=== PATIENT | male | born 1965 | race Caucasian/White ===

== ENCOUNTER 2016-11-02 03:19 | Observation (INO) | payer OTHER ==
[2016-11-02] MEDS ORDERED: NITROGLYCERIN OINT 1 INCH/GM PACKET TOPICAL STA (03:24)
[2016-11-02] MEDS ORDERED: ASPIRIN 81 MG CHEW PO STA (03:24)
--- NOTE | 2016-11-02 03:27 | ED ---
General Adult HPI - General Stated complaint: Chest Pain Time Seen by Provider: 11/02/16 03:19 Source: RN notes reviewed - History of Present Illness Initial comments: This is a 50-year-old male with a past medical history significant for high blood pressure and smoking and patient states both of his parents had open- heart surgery. Patient states over the last month he's been occasionally getting some chest pain but over the last 3 days it has become much more frequent. Patient states the pain sometimes radiates down his left arm it usually worse with mild exertion and he does become very short of breath when the pain starts. Patient states the pain usually lasts about 5-10 minutes. Patient states it was a 7 out of 10 when he called EMS this evening however he is pain-free at this time. Patient denies any episodes of diaphoresis. Patient denies any fever chills or cough. Patient denies headache patient denies any numbness or weakness patient denies any lightheadedness dizziness or near syncopal episode. - Related Data Allergies Allergy/AdvReac Type Severity Reaction Status Date / Time ciprofloxacin [From Cipro] Allergy Unknown Verified 11/02/16 03:53 Review of Systems ROS Statement: Those systems with pertinent positive or pertinent negative responses have been documented in the HPI. ROS Other: All systems not noted in ROS Statement are negative. General Exam - General Exam Comments Initial Comments: GENERAL: Patient is well-developed and well-nourished. Patient is nontoxic and well- hydrated and is in mild distress. ENT: Neck is soft and supple. No significant lymphadenopathy is noted. Oropharynx is clear. Moist mucous membranes. EYES: The sclera were anicteric and conjunctiva were pink and moist. Extraocular movements were intact and pupils were equal round and reactive to light. Eyelids were unremarkable. PULMONARY: Unlabored respirations. Good breath sounds bilaterally. No audible rales rhonchi or wheezing was noted. CARDIOVASCULAR: There is a regular rate and rhythm without any murmurs gallops or rubs. ABDOMEN: Soft and nontender with normal bowel sounds. No palpable organomegaly was noted. There is no palpable pulsatile mass. SKIN: Skin is clear with no lesions or rashes and otherwise unremarkable. NEUROLOGIC: Patient is alert and oriented x3. Cranial nerves II through XII are grossly intact. Motor and sensory are also intact. Normal speech, volume and content. Symmetrical smile. MUSCULOSKELETAL: Normal extremities with adequate strength and full range of motion. LYMPHATICS: No significant lymphadenopathy is noted PSYCHIATRIC: Normal psychiatric evaluation. Course Vital Signs 11/02/16 03:38 Temperature 98.2 F Pulse Rate 81 Respiratory 18 Rate Blood Pressure 145/90 O2 Sat by Pulse 98 Oximetry Medical Decision Making - Medical Decision Making EKG shows a normal sinus rhythm at 73 bpm. It was 160 QRS is 114 QT interval 380 QTC is 427. Patient's EKG shows no ST segment elevation or depression or T- wave abdomen is noted. Chest x-ray shows no acute abnormality. Patient has been having intermittent progressive chest pain worse with exertion associated with shortness of breath and some left arm pain since with his past medical history of smoking high blood pressure along with his family history concerned me and I diagnosed with unstable angina and therefore heparinized and admitted to the floor I consult the cardiology I wrote admitting orders and admitted the patient to Dr. eG. I continued heparin and aspirin Nitropaste on the floor. - Lab Data Result diagrams: 11/02/16 03:29 11/02/16 03:29 Lab Results 11/02/16 11/02/16 11/02/16 Range/Units 03:29 03:29 03:29 WBC 10.2 (3.8-10.6) k/uL RBC 4.40 (4.30-5.90) m/uL Hgb 14.5 (13.0-17.5) gm/dL Hct 42.3 (39.0-53.0) % MCV 96.2 (80.0-100.0) fL MCH 33.0 (25.0-35.0) pg MCHC 34.3 (31.0-37.0) g/dL RDW 13.3 (11.5-15.5) % Plt Count 114 L (150-450) k/uL Neutrophils % 49 % Lymphocytes % 40 % Monocytes % 6 % Eosinophils % 2 % Basophils % 1 % Neutrophils # 5.1 (1.3-7.7) k/uL Lymphocytes # 4.1 (1.0-4.8) k/uL Monocytes # 0.6 (0-1.0) k/uL Eosinophils # 0.2 (0-0.7) k/uL Basophils # 0.1 (0-0.2) k/uL Sodium 144 (137-145) mmol/L Potassium 5.8 H (3.5-5.1) mmol/L Chloride 114 H (98-107) mmol/L Carbon Dioxide 23 (22-30) mmol/L Anion Gap 7 mmol/L BUN 20 (9-20) mg/dL Creatinine 0.84 (0.66-1.25) mg/dL Est GFR (MDRD) Af Amer >60 (>60 ml/min/1.73 sqM) Est GFR (MDRD) Non-Af >60 (>60 ml/min/1.73 sqM) Glucose 108 H (74-99) mg/dL Calcium 9.3 (8.4-10.2) mg/dL Magnesium 1.9 (1.6-2.3) mg/dL Total Bilirubin 1.2 (0.2-1.3) mg/dL AST 33 (17-59) U/L ALT 6 L (21-72) U/L Alkaline Phosphatase 73 (38-126) U/L Total Creatine Kinase 58 (55-170) U/L CK-MB (CK-2) <0.2 (0.0-2.4) ng/mL CK-MB (CK-2) Rel Index Troponin I 0.013 (0.000-0.034) ng/mL Total Protein 7.3 (6.3-8.2) g/dL Albumin 3.9 (3.5-5.0) g/dL Critical Care Time Critical Care Time: Yes Total Critical Care Time: 35 Disposition Clinical Impression: Unstable angina pectoris Disposition: ADMITTED IP TO THIS HOSP Referrals: Dominik Rios MD [Primary Care Provider] - 1-2 days Time of Disposition: 04:40
[2016-11-02 03:51] LABS: Basophils # (A) 0.1 k/uL (0-0.2); Basophils % (A) 1 %; CH 32.8; CHCM 34.3; Eosinophils # (A) 0.2 k/uL (0-0.7); Eosinophils % (A) 2 %; HCT 42.3 % (39.0-53.0); HDW 2.75; HGB 14.5 gm/dL (13.0-17.5); Luc # (Auto) 0.17; Luc % (Auto) 2; Lymphocytes # (A) 4.1 k/uL (1.0-4.8); Lymphocytes % (A) 40 %; MCHC 34.3 g/dL (31.0-37.0); MCV 96.2 fL (80.0-100.0); Mean Platelet Volume 7.9; Monocytes # (A) 0.6 k/uL (0-1.0); Monocytes % (A) 6 %; Neutrophils # (A) 5.1 k/uL (1.3-7.7); Neutrophils % (A) 49 %; RDW 13.3 % (11.5-15.5); WBC 10.2 k/uL (3.8-10.6); WBC (Perox) 10.12
[2016-11-02 04:00] LABS: Anion Gap 7 mmol/L; Calcium 9.3 mg/dL (8.4-10.2); Carbon Dioxide 23 mmol/L (22-30); Chloride 114 mmol/L (98-107); Non-African American GFR(MDRD) >60 (>60 ml/min/1.73 sqM); Sodium 144 mmol/L (137-145)
[2016-11-02 04:01] LABS: Potassium 5.8 mmol/L (3.5-5.1)
--- NOTE | 2016-11-02 04:01 | XR ---
EXAM: XR Chest, 2 Views CLINICAL HISTORY: Reason: Chest Pain TECHNIQUE: Frontal and lateral views of the chest. COMPARISON: No relevant prior studies available. FINDINGS: Lungs: Unremarkable. No consolidation. Pleural space: Unremarkable. No pneumothorax. Heart: Unremarkable. No cardiomegaly. Mediastinum: Unremarkable. Bones/joints: Unremarkable. IMPRESSION: Normal chest x-rays.
[2016-11-02 04:02] LABS: ALT 6 U/L (21-72); AST 33 U/L (17-59); Alkaline Phosphatase 73 U/L (38-126); Blood Urea Nitrogen 20 mg/dL (9-20); Glucose 108 mg/dL (74-99); Magnesium 1.9 mg/dL (1.6-2.3); Total Protein 7.3 g/dL (6.3-8.2)
[2016-11-02 04:03] LABS: Creatine Kinase 58 U/L (55-170); Total Bilirubin 1.2 mg/dL (0.2-1.3)
[2016-11-02 04:17] LABS: Creatine Kinase MB <0.2 ng/mL (0.0-2.4); Troponin I 0.013 ng/mL (0.000-0.034)
[2016-11-02] MEDS ORDERED: NITROGLYCERIN SL TABS 0.4 MG TAB SUBLINGUAL PRN (04:40)
[2016-11-02] MEDS ORDERED: HEPARIN SODIUM,PORCINE 5,000 UNIT/ML 1 ML VIAL IV ONE (04:40)
[2016-11-02] MEDS ORDERED: HEPARIN SODIUM,PORCINE/D5W PMX 25,000 UNIT in DEXTROSE/WATER 1 500ML.BAG IV SCH (04:45)
[2016-11-02 04:52] LABS: INR 1.1 (<1.1); Partial Thromboplastin Time 23.3 sec (22.0-30.0)
[2016-11-02 05:42] VITALS: BMI 27.3
[2016-11-02] MEDS: NITROGLYCERIN OINT 1 INCH/GM PACKET TOPICAL SCH ×2 (06:30→13:16)
[2016-11-02 11:08] LABS: Creatine Kinase 30 U/L (55-170)
[2016-11-02 11:21] LABS: Creatine Kinase MB 0.2 ng/mL (0.0-2.4); Troponin I <0.012 ng/mL (0.000-0.034)
[2016-11-02 15:56] VITALS: BP 141/72; PULSE 64; RESP 18; TEMP 98.2
[2016-11-02 16:18] LABS: Creatine Kinase 29 U/L (55-170)
[2016-11-02 16:32] LABS: Creatine Kinase MB 0.3 ng/mL (0.0-2.4); Troponin I <0.012 ng/mL (0.000-0.034)
[2016-11-02 18:10] LABS: Anion Gap 7 mmol/L; Blood Urea Nitrogen 18 mg/dL (9-20); Calcium 9.8 mg/dL (8.4-10.2); Carbon Dioxide 26 mmol/L (22-30); Chloride 111 mmol/L (98-107); Glucose 88 mg/dL (74-99); Non-African American GFR(MDRD) >60 (>60 ml/min/1.73 sqM); Potassium 4.5 mmol/L (3.5-5.1); Sodium 144 mmol/L (137-145)
--- NOTE | 2016-11-02 22:13 | HP ---
The patient is a 50-year-old admitted with chest pain. The patient's past medical history is significant for high blood pressure and smoking. Patient came in with on and off chest pain. Patient mostly has neck pain, and chronic low back pain and he believes that it is radiating to his chest. His pain is pressure-like sensation to sharp in nature, has been going on for 3 months on and off, appears to have both exertional and nonexertional components, nonpleuritic in nature, not associated with food. Lasts about 10 to 15 minutes. Patient does normally have shortness of breath. Shortness of breath happens whenever he takes stairs. Not always associated with chest pain. Patient denied any diaphoresis. Patient denied any nausea, vomiting. Patient denied any fever, chills, cough. Patient had a stress test about 3 years ago. I had extensive discussion with the patient. Patient had 3 sets of troponins that are negative. The patient's EKG did not show any significant acute ST-T wave changes. The patient wanted to go home and get a stress test done as an outpatient. Because of that reason, I will go ahead and discharge the patient, since we ruled out acute coronary artery syndromes, and Lexiscan stress test will be scheduled for Sunday. Patient mainly came in because he ran out of pain medications for his back pain. He normally takes Percocet, which will be continued. Other issue with him being elevated potassium, which is a hemolyzed sample, because of which we will repeat the potassium. If potassium continues to be higher, lisinopril need to be discontinued. If potassium comes down, patient can go with his antihypertensive medications. ALLERGIES: ALLERGIC TO CIPROFLOXIN. REVIEW OF SYSTEMS: CONSTITUTIONAL: No fever, no malaise, no fatigue. HEENT: No recent visual problems or hearing problems. Denied any sore throat. CARDIOVASCULAR: As described in HPI. PULMONARY: No shortness of breath, no cough, no hemoptysis. GASTROINTESTINAL: No diarrhea, no nausea, no vomiting, no abdominal pain. Normoactive bowel sounds. NEUROLOGICAL: No headaches, no weakness, no numbness. HEMATOLOGICAL: Denies any bleeding or petechiae. GENITOURINARY: Denies any burning micturition, frequency, or urgency. MUSCULOSKELETAL/RHEUMATOLOGICAL: Denies any joint pain, swelling, or any muscle pain. ENDOCRINE: Denies any polyuria or polydipsia. The rest of the 14 point review of systems is negative. PAST MEDICAL HISTORY: Significant for chronic low back pain component of COPD, hyperlipidemia, hypertension, osteoarthritis, hypothyroidism. Patient continues to smoke pack per day. Denied any alcohol abuse or any drug abuse. FAMILY HISTORY: Significant for coronary artery disease in both parents had CABG in the past. PHYSICAL EXAMINATION: VITAL SIGNS: Temperature 98.2, pulse of 64, respiratory rate of 18, blood pressure is 141/70, saturating at 92% on room air on. GENERAL: The patient is alert and oriented x3, not in any acute distress. Well developed, well nourished. HEENT: Pupils are round and equally reacting to light. EOMI. No scleral icterus. No conjunctival pallor. Normocephalic, atraumatic. No pharyngeal erythema. No thyromegaly. CARDIOVASCULAR: S1 and S2 present. No murmurs, rubs, or gallops. PULMONARY: Chest is clear to auscultation, no wheezing or crackles. ABDOMEN: Soft, nontender, nondistended, normoactive bowel sounds. No palpable organomegaly. MUSCULOSKELETAL: No joint swelling or deformity. EXTREMITIES: No cyanosis, clubbing, or pedal edema. NEUROLOGICAL: Gross neurological examination did not reveal any focal deficits. SKIN: No rashes. LABORATORY DATA: CBC, CMP abnormal for elevated potassium as mentioned above. Elevated chloride secondary to IV fluids. ASSESSMENT AND PLAN: 1. Chest pain mostly appears to be musculoskeletal and appears to be coming from neck degenerative disc disease. Patient also has sciatica kind of pain with positive straight leg raising test which I failed to mention earlier on both sides. Ruled out acute coronary artery syndrome. Outpatient stress test as mentioned above. Patient will follow with Dr. Dominik Rios. 2. Hypertension. Management as mentioned above. 3. Gastroesophageal reflux disease. 4. Chronic low back pain. 5. Component of chronic obstructive pulmonary disease. Patient is not in acute exacerbation. Further management as an outpatient by Dr. Rios. 6. The patient will follow with Dr. Rios in 3 to 7 days. 7. Activity as tolerated. 8. Outpatient stress test ( ) provided. 9. Cardiac diet.
[2016-11-03] MEDS ORDERED: ASPIRIN 325 MG TAB PO SCH (09:00)
== END 2016-11-02 17:25 | disposition home or self-care (01) ==
LOC: EC 03:19 → 3OBS 04:40
PROVIDERS: ADMIT Hospitalist; ATTEND Hospitalist
DX: R07.89 Other chest pain (principal); M50.30 Other cervical disc degeneration, unspecified cervical region; I10 Essential (primary) hypertension; M79.602 Pain in left arm; M54.32 Sciatica, left side; M54.31 Sciatica, right side; G89.29 Other chronic pain; J44.9 Chronic obstructive pulmonary disease, unspecified; E78.5 Hyperlipidemia, unspecified; E03.9 Hypothyroidism, unspecified; M19.90 Unspecified osteoarthritis, unspecified site; K21.9 Gastro-esophageal reflux disease without esophagitis; F17.200 Nicotine dependence, unspecified, uncomplicated; Z82.49 Family history of ischemic heart disease and other diseases of the circulatory system; Z88.3 Allergy status to other anti-infective agents
CPT/HCPCS: 96365; 96366; 96376; 99291; 99292; 36415; 93005; 80053; 80048; 82550; 82553; 83735; 84484; 85025; 85610; 85730; 71020; G0378; J1644 ×2

== ENCOUNTER 2016-11-10 16:19 | Emergency (ER) | payer OTHER ==
[2016-11-10 16:31] VITALS: BP 122/78; PULSE 70; RESP 16; TEMP 97.4
--- NOTE | 2016-11-10 17:03 | ED ---
Back Pain HPI - General Chief Complaint: Back Pain/Injury Stated Complaint: Back Pain Time Seen by Provider: 11/10/16 16:51 Source: patient, RN notes reviewed Mode of arrival: ambulatory Limitations: no limitations - History of Present Illness Initial Comments: 50-year-old male presents for chronic back pain, medication refill. Patient was seen Dr. Flanagan but states that he received a letter of discharge. Patient was in the hospital and did receive prescription from Dr. david ibrahim. Patient states that he has chronic pain has been on multiple narcotic pain medicine for years. Patient states that he just ran out today as he had a prescription refill 8 days ago. Of 30. Patient denies any bowel bladder incontinence no retention and denies any trauma. - Related Data Home Medications Medication Instructions Recorded Confirmed ALPRAZolam [Xanax] 1 mg PO Q6HR PRN 11/02/16 11/02/16 Famotidine [Pepcid] 20 mg PO DAILY 11/02/16 11/02/16 Gabapentin [Neurontin] 600 mg PO TID 11/02/16 11/02/16 oxyCODONE-APAP 10-325MG [Percocet 1 tab PO Q6HR PRN 11/02/16 11/02/16 10-325 mg] Previous Rx's Medication Instructions Recorded HYDROcodone/APAP 10-325MG [[place] 1 tab PO Q6H PRN #30 tab 11/10/16 10-325] Allergies Allergy/AdvReac Type Severity Reaction Status Date / Time ciprofloxacin [From Cipro] Allergy Unknown Verified 11/02/16 07:52 Iodinated Contrast Media - AdvReac "PASSED Verified 11/02/16 08:13 Oral and OUT FOR 3 DAYS" Review of Systems ROS Statement: Those systems with pertinent positive or pertinent negative responses have been documented in the HPI. ROS Other: All systems not noted in ROS Statement are negative. Past Medical History Past Medical History: COPD, GERD/Reflux, Hyperlipidemia, Hypertension, Osteoarthritis (OA), Pneumonia, Thyroid Disorder Additional Past Medical History / Comment(s): DDD back, spinal cord impingment, herniated disc spine with spurs, neuropathy, rediculopathy, scoliosis, carpel tunner History of Any Multi-Drug Resistant Organisms: None Reported Past Surgical History: No Surgical Hx Reported Past Anesthesia/Blood Transfusion Reactions: No Reported Reaction, Motion Sickness Past Psychological History: Anxiety Smoking Status: Current every day smoker Past Alcohol Use History: Daily Past Drug Use History: None Reported - Past Family History Father Family Medical History: Coronary Artery Disease (CAD) Additional Family Medical History / Comment(s): CABG Mother Family Medical History: Coronary Artery Disease (CAD) Additional Family Medical History / Comment(s): CABG General Exam Limitations: no limitations General appearance: alert, in no apparent distress Head exam: Present: atraumatic, normocephalic, normal inspection Respiratory exam: Present: normal lung sounds bilaterally. Absent: respiratory distress, wheezes, rales, rhonchi, stridor Cardiovascular Exam: Present: regular rate, normal rhythm, normal heart sounds. Absent: systolic murmur, diastolic murmur, rubs, gallop, clicks GI/Abdominal exam: Present: soft, normal bowel sounds. Absent: distended, tenderness, guarding, rebound, rigid Back exam: Present: normal inspection, full ROM, tenderness (lumbar) Course Vital Signs 11/10/16 16:28 Temperature 97.4 F L Pulse Rate 70 Respiratory 16 Rate Blood Pressure 122/78 O2 Sat by Pulse 95 Oximetry Medical Decision Making - Medical Decision Making 50-year-old male presented for medication refill. I did inform that he needs to figure out a plan with his primary care physician for further pain meds. Patient will be given [place] only this time to get to the weekend to see Dr. Rios. He does agree to this plan. Disposition Clinical Impression: Chronic back pain, Medication refill Disposition: HOME SELF-CARE Condition: Stable Instructions: Chronic Back Pain (ED) Additional Instructions: Please return to the Emergency Department if symptoms worsen or any other concerns. Prescriptions: HYDROcodone/APAP 10-325MG [[place] 10-325] 1 tab PO Q6H PRN #30 tab PRN Reason: pain Referrals: Dominik Rios MD [Primary Care Provider] - 1-2 days Time of Disposition: 17:02
== END 2016-11-10 17:15 | disposition home or self-care (01) ==
LOC: EC 16:19
DX: G89.29 Other chronic pain (principal); M54.9 Dorsalgia, unspecified; Z76.0 Encounter for issue of repeat prescription; K21.9 Gastro-esophageal reflux disease without esophagitis; F17.200 Nicotine dependence, unspecified, uncomplicated; Z79.899 Other long term (current) drug therapy; Z88.1 Allergy status to other antibiotic agents; Z91.041 Radiographic dye allergy status
CPT/HCPCS: 99282

== ENCOUNTER 2016-12-04 09:35 | Emergency (ER) | payer OTHER ==
[2016-12-04] MEDS ORDERED: ORPHENADRINE 30 MG/ML 2 ML VIAL IM STA (10:17)
[2016-12-04] MEDS ORDERED: MORPHINE SULFATE 4 MG/ML SYRINGE IM STA (10:17)
[2016-12-04] MEDS ORDERED: predniSONE 20 MG TAB PO STA (10:17)
--- NOTE | 2016-12-04 10:26 | ED ---
Back Pain HPI - General Chief Complaint: Back Pain/Injury Stated Complaint: leg and neck pain Time Seen by Provider: 12/04/16 10:06 Source: patient Limitations: no limitations - History of Present Illness Initial Comments: This patient is a 50-year-old man who presents with complaint that his usual back pain is flaring up. The patient states that he has been having neck pain since he was in his 30s and he had a [employer] accident. He states that since that time he has had the same symptoms he has now intermittently. He also has had the numbness and tingling to the legs, being worse on the left than right. He is here because the pain is a bit worse. He has not had any change in his function lately. He has not had any bowel or urinary issues. He has not had loss of strength. Patient states that he is not currently see a back specialist. MD Complaint: back pain -: year(s) Similar Symptoms Previously: Yes Place: home Radiation: left leg, right leg Severity: severe Quality: aching Consistency: constant Improves With: none Worsens With: none - Related Data Home Medications Medication Instructions Recorded Confirmed ALPRAZolam [Xanax] 1 mg PO Q6HR PRN 11/02/16 12/04/16 Famotidine [Pepcid] 20 mg PO DAILY 11/02/16 12/04/16 Gabapentin [Neurontin] 600 mg PO TID 11/02/16 12/04/16 oxyCODONE-APAP 10-325MG [Percocet 1 tab PO Q6HR PRN 11/02/16 12/04/16 10-325 mg] Amoxicillin 500 mg PO DIRECTED 12/04/16 12/04/16 Aspirin 325 mg PO ONCE PRN 12/04/16 12/04/16 Losartan/Hydrochlorothiazide 1 tab PO DAILY 12/04/16 12/04/16 [Hyzaar 100-12.5 Tablet] Allergies Allergy/AdvReac Type Severity Reaction Status Date / Time ciprofloxacin [From Cipro] Allergy Unknown Verified 12/04/16 10:08 Iodinated Contrast Media - AdvReac "PASSED Verified 12/04/16 10:08 Oral and OUT FOR 3 DAYS" Review of Systems ROS Statement: Those systems with pertinent positive or pertinent negative responses have been documented in the HPI. ROS Other: All systems not noted in ROS Statement are negative. Constitutional: Denies: fever, chills, weakness Gastrointestinal: Denies: abdominal pain, diarrhea, constipation Genitourinary: Denies: dysuria, frequency, hematuria, discharge, testicular pain Musculoskeletal: Reports: as per HPI, back pain Neurological: Reports: numbness, paresthesias. Denies: headache, weakness, abnormal gait Past Medical History Past Medical History: COPD, GERD/Reflux, Hyperlipidemia, Hypertension, Osteoarthritis (OA), Pneumonia, Thyroid Disorder Additional Past Medical History / Comment(s): DDD back, spinal cord impingment, herniated disc spine with spurs, neuropathy, rediculopathy, scoliosis, carpel tunner History of Any Multi-Drug Resistant Organisms: None Reported Past Surgical History: No Surgical Hx Reported Past Anesthesia/Blood Transfusion Reactions: No Reported Reaction, Motion Sickness Past Psychological History: Anxiety Smoking Status: Current every day smoker Past Alcohol Use History: Daily Past Drug Use History: None Reported - Past Family History Father Family Medical History: Coronary Artery Disease (CAD) Additional Family Medical History / Comment(s): CABG Mother Family Medical History: Coronary Artery Disease (CAD) Additional Family Medical History / Comment(s): CABG General Exam Limitations: no limitations General appearance: alert, in no apparent distress Head exam: Present: atraumatic, normocephalic Eye exam: Present: normal appearance. Absent: scleral icterus, conjunctival injection Respiratory exam: Present: normal lung sounds bilaterally. Absent: respiratory distress, wheezes, rales, rhonchi, stridor Cardiovascular Exam: Present: regular rate, normal rhythm, normal heart sounds. Absent: systolic murmur, diastolic murmur, rubs, gallop GI/Abdominal exam: Present: soft. Absent: distended, tenderness, guarding, rebound, mass Extremities exam: Present: normal inspection, normal capillary refill. Absent: pedal edema, calf tenderness Back exam: Absent: vertebral tenderness Neurological exam: Present: alert, reflexes normal. Absent: motor sensory deficit Skin exam: Present: warm, dry, intact, normal color. Absent: rash Course Vital Signs 12/04/16 09:36 Temperature 98.3 F Pulse Rate 76 Respiratory 20 Rate Blood Pressure 142/82 O2 Sat by Pulse 98 Oximetry Disposition Clinical Impression: Chronic back pain Disposition: HOME SELF-CARE Condition: Fair Instructions: Chronic Back Pain (ED) Referrals: Dominik Rios MD [Primary Care Provider] - 1-2 days Manoj Baker MD [STAFF PHYSICIAN] - 1-2 days Gail Medina DO [Doctor of Osteopathic Medicine] - 1-2 days
[2016-12-04 10:35] VITALS: RESP 16
[2016-12-04 10:51] VITALS: BP 146/84; PULSE 60; TEMP 97.1
== END 2016-12-04 10:59 | disposition home or self-care (01) ==
LOC: EC 09:35
DX: M54.9 Dorsalgia, unspecified (principal); G89.29 Other chronic pain; M54.2 Cervicalgia; I10 Essential (primary) hypertension; F17.200 Nicotine dependence, unspecified, uncomplicated; Z88.1 Allergy status to other antibiotic agents; Z91.041 Radiographic dye allergy status; Z79.899 Other long term (current) drug therapy
CPT/HCPCS: 99283; 96372 ×2; J2270; J2360

== ENCOUNTER 2017-01-11 18:47 | Emergency (ER) | payer OTHER ==
[2017-01-11 18:55] VITALS: RESP 18
[2017-01-11] MEDS ORDERED: HYDROmorphone 1 MG/ML 1 ML SYRINGE IM STA (19:50)
[2017-01-11] MEDS ORDERED: KETOROLAC 30 MG/ML 1 ML VIAL IVP STA (19:50)
[2017-01-11] MEDS ORDERED: methylPREDNISolone SOD SUCCI 125 MG/2 ML VIAL IV STA (19:50)
[2017-01-11 20:06] LABS: Appearance,Urine Clear (Clear); Basophils # (A) 0.1 k/uL (0-0.2); Basophils % (A) 1 %; Bilirubin,Urine Negative (Negative); CH 33.3; CHCM 35.2; Eosinophils # (A) 0.2 k/uL (0-0.7); Eosinophils % (A) 2 %; Glucose,Urine (UA) Negative (Negative); HCT 42.9 % (39.0-53.0); HDW 2.65; HGB 14.7 gm/dL (13.0-17.5); Ketones,Urine Negative (Negative); Leukocyte Esterase,Urine Negative (Negative); Luc # (Auto) 0.13; Luc % (Auto) 2; Lymphocytes # (A) 2.8 k/uL (1.0-4.8); Lymphocytes % (A) 34 %; MCH 32.7 pg (25.0-35.0); MCHC 34.3 g/dL (31.0-37.0); MCV 95.3 fL (80.0-100.0); Mean Platelet Volume 8.5; Monocytes # (A) 0.6 k/uL (0-1.0); Monocytes % (A) 7 %; Neutrophils # (A) 4.5 k/uL (1.3-7.7); Neutrophils % (A) 54 %; Nitrite,Urine Negative (Negative); Protein,Urine Trace (Negative); Specific Gravity,Urine 1.019 (1.001-1.035); UA Billing (MACRO vs. MICRO) CHEM; Urobilinogen,Urine <2.0 mg/dL (<2.0); WBC 8.3 k/uL (3.8-10.6); WBC (Perox) 8.17
[2017-01-11 20:15] LABS: Anion Gap 9 mmol/L; Blood Urea Nitrogen 12 mg/dL (9-20); Calcium 9.6 mg/dL (8.4-10.2); Carbon Dioxide 28 mmol/L (22-30); Chloride 107 mmol/L (98-107); Glucose 94 mg/dL (74-99); Non-African American GFR(MDRD) >60 (>60 ml/min/1.73 sqM); Potassium 3.7 mmol/L (3.5-5.1); Sodium 144 mmol/L (137-145)
--- NOTE | 2017-01-11 20:25 | ED ---
Back Pain HPI - General Chief Complaint: Back Pain/Injury Stated Complaint: severe back/kidney Source: patient Limitations: no limitations - History of Present Illness Initial Comments: 51-year-old male with past medical history of chronic back pain from previous injuries present for evaluation and continuation of his chronic pain. He states that the only difference from his baseline pain is that it is gone out a little bit wider on both sides. Otherwise he states that his pain is just continued and he is having difficult to dealing with. He has seen multiple neurologists and orthopedic surgeons and has had no relief of his symptoms. He denies any lower extremity weakness, bowel or bladder discomfort, or saddle anesthesia. It is no spinous process tenderness. - Related Data Home Medications Medication Instructions Recorded Confirmed ALPRAZolam [Xanax] 1 mg PO Q6HR PRN 11/02/16 01/11/17 Famotidine [Pepcid] 20 mg PO DAILY 11/02/16 01/11/17 oxyCODONE-APAP 10-325MG [Percocet 1 tab PO Q6HR PRN 11/02/16 01/11/17 10-325 mg] Losartan/Hydrochlorothiazide 1 tab PO DAILY 12/04/16 01/11/17 [Hyzaar 100-12.5 Tablet] Butalb/APAP/Caff 50-325-40Mg 1 tab PO Q6H PRN 01/11/17 01/11/17 [Fioricet 50-325-40] Allergies Allergy/AdvReac Type Severity Reaction Status Date / Time ciprofloxacin [From Cipro] Allergy Unknown Verified 01/11/17 19:06 Iodinated Contrast- Oral and AdvReac "PASSED Verified 01/11/17 19:06 IV Dye OUT FOR 3 [Iodinated Contrast Media - DAYS" Oral and] Review of Systems ROS Statement: Those systems with pertinent positive or pertinent negative responses have been documented in the HPI. ROS Other: All systems not noted in ROS Statement are negative. Constitutional: Denies: fever, chills Eyes: Denies: eye pain, eye discharge ENT: Denies: ear pain, throat pain Respiratory: Denies: cough, dyspnea Cardiovascular: Denies: chest pain, palpitations Endocrine: Denies: fatigue, polydipsia, polyuria Gastrointestinal: Denies: abdominal pain, nausea, vomiting Genitourinary: Denies: urgency, dysuria Musculoskeletal: Reports: back pain. Denies: arthralgia, myalgia Skin: Denies: rash, lesions Neurological: Reports: other (radiation of pain down legs L>R). Denies: headache, weakness Psychiatric: Denies: anxiety, depression Hematological/Lymphatic: Denies: easy bleeding, easy bruising Past Medical History Past Medical History: COPD, GERD/Reflux, Hyperlipidemia, Hypertension, Osteoarthritis (OA), Pneumonia, Thyroid Disorder Additional Past Medical History / Comment(s): DDD back, spinal cord impingment, herniated disc spine with spurs, neuropathy, rediculopathy, scoliosis, carpel tunner History of Any Multi-Drug Resistant Organisms: None Reported Past Surgical History: No Surgical Hx Reported Past Anesthesia/Blood Transfusion Reactions: No Reported Reaction, Motion Sickness Past Psychological History: Anxiety Smoking Status: Current every day smoker Past Alcohol Use History: Daily Past Drug Use History: None Reported - Past Family History Father Family Medical History: Coronary Artery Disease (CAD) Additional Family Medical History / Comment(s): CABG Mother Family Medical History: Coronary Artery Disease (CAD) Additional Family Medical History / Comment(s): CABG General Exam Limitations: no limitations General appearance: alert, in no apparent distress Head exam: Present: atraumatic, normocephalic, normal inspection Eye exam: Present: normal appearance, PERRL, EOMI. Absent: scleral icterus, conjunctival injection, periorbital swelling ENT exam: Present: normal exam, mucous membranes moist Neck exam: Present: normal inspection. Absent: tenderness, meningismus, lymphadenopathy Respiratory exam: Present: normal lung sounds bilaterally. Absent: respiratory distress, wheezes, rales, rhonchi, stridor Cardiovascular Exam: Present: regular rate, normal rhythm, normal heart sounds. Absent: systolic murmur, diastolic murmur, rubs, gallop, clicks GI/Abdominal exam: Present: soft, normal bowel sounds. Absent: distended, tenderness, guarding, rebound, rigid Rectal exam: Present: deferred Extremities exam: Present: normal inspection, full ROM, normal capillary refill. Absent: tenderness, pedal edema, joint swelling, calf tenderness Back exam: Present: full ROM, tenderness, paraspinal tenderness. Absent: CVA tenderness (R), CVA tenderness (L), muscle spasm, vertebral tenderness Neurological exam: Present: alert, oriented X3, CN II-XII intact Psychiatric exam: Present: normal affect, normal mood Skin exam: Present: warm, dry, intact, normal color. Absent: rash Course Vital Signs 01/11/17 01/11/17 18:53 20:32 Temperature 97.8 F 98.2 F Pulse Rate 73 85 Respiratory 18 18 Rate Blood Pressure 129/62 161/80 O2 Sat by Pulse 99 98 Oximetry Medical Decision Making - Medical Decision Making 51-year-old male presented for evaluation of low back pain with radiation down bilateral legs. He states that he has a long-standing history of chronic back pain however it is only mildly changed recently with the pain going laterally on both sides. On physical examination he does have tenderness bilaterally and there is positive straight leg test on the both sides. Given that this pain is at his baseline and has not really changed as well as having normal labs at this time, he will be treated for his pain and given instructions to follow up with his PCP and to look into establishing himself with a pain specialist. He was informed that he should return to this facility if his pain should worsen or persist but that he should not continue to come to the ED for chronic management of his pain. He knowledge and understanding of this information and agreed with this plan of care. - Lab Data Result diagrams: 01/11/17 19:54 01/11/17 19:54 Lab Results 01/11/17 01/11/17 01/11/17 Range/Units 19:54 19:54 19:54 WBC 8.3 (3.8-10.6) k/uL RBC 4.50 (4.30-5.90) m/uL Hgb 14.7 (13.0-17.5) gm/dL Hct 42.9 (39.0-53.0) % MCV 95.3 (80.0-100.0) fL MCH 32.7 (25.0-35.0) pg MCHC 34.3 (31.0-37.0) g/dL RDW 14.0 (11.5-15.5) % Plt Count 261 (150-450) k/uL Neutrophils % 54 % Lymphocytes % 34 % Monocytes % 7 % Eosinophils % 2 % Basophils % 1 % Neutrophils # 4.5 (1.3-7.7) k/uL Lymphocytes # 2.8 (1.0-4.8) k/uL Monocytes # 0.6 (0-1.0) k/uL Eosinophils # 0.2 (0-0.7) k/uL Basophils # 0.1 (0-0.2) k/uL Sodium 144 (137-145) mmol/L Potassium 3.7 (3.5-5.1) mmol/L Chloride 107 (98-107) mmol/L Carbon Dioxide 28 (22-30) mmol/L Anion Gap 9 mmol/L BUN 12 (9-20) mg/dL Creatinine 0.90 (0.66-1.25) mg/dL Est GFR (MDRD) Af Amer >60 (>60 ml/min/1.73 sqM) Est GFR (MDRD) Non-Af >60 (>60 ml/min/1.73 sqM) Glucose 94 (74-99) mg/dL Calcium 9.6 (8.4-10.2) mg/dL Urine Color Yellow Urine Appearance Clear (Clear) Urine pH 8.0 (5.0-8.0) Ur Specific [place] 1.019 (1.001-1.035) Urine Protein Trace H (Negative) Urine Glucose (UA) Negative (Negative) Urine Ketones Negative (Negative) Urine Blood Negative (Negative) Urine Nitrite Negative (Negative) Urine Bilirubin Negative (Negative) Urine Urobilinogen <2.0 (<2.0) mg/dL Ur Leukocyte Esterase Negative (Negative) Disposition Clinical Impression: Back pain Disposition: HOME SELF-CARE Condition: Stable Instructions: Acute Low Back Pain (ED), Chronic Back Pain (ED) Referrals: Dominik Rios MD [Primary Care Provider] - 1-2 days Time of Disposition: 20:25
[2017-01-11 20:33] VITALS: BP 161/80; PULSE 85; TEMP 98.2
== END 2017-01-11 20:36 | disposition home or self-care (01) ==
LOC: EC 18:47
DX: M54.9 Dorsalgia, unspecified (principal); K21.9 Gastro-esophageal reflux disease without esophagitis; I10 Essential (primary) hypertension; F17.200 Nicotine dependence, unspecified, uncomplicated; Z79.899 Other long term (current) drug therapy; Z88.1 Allergy status to other antibiotic agents; Z91.041 Radiographic dye allergy status
CPT/HCPCS: 36415; 80048; 85025; 81003; 99283; 96374; 96375; J2930; J1885

== ENCOUNTER 2017-01-17 19:02 | Observation (INO) | payer OTHER ==
[2017-01-17] MEDS ORDERED: SODIUM CHLORIDE 0.9% 1,000 ML IV STA (19:12)
--- NOTE | 2017-01-17 19:26 | ED ---
Seizure HPI - General Chief Complaint: Seizure Stated Complaint: Seizure-Head Injury Time Seen by Provider: 01/17/17 19:02 Source: patient, RN notes reviewed Mode of arrival: EMS Limitations: no limitations - History of Present Illness Initial Comments: This is a 51-year-old male with no prior history of seizure who apparently was on the second or third step of a porch 20 developed a generalized tonic-clonic seizure and fell onto the right side of his face. The seizure lasted about a minute per witnesses he did have an unresponsive. Rule out 5 minutes but then about a 30 minute episode of combative behavior until he became awake and alert. He states he had no premonition he was have a seizure he's never had one before denies any drugs or alcohol denies any recent illnesses he also denies any neck or back pain or loss of function to his upper or lower extremities. MD Complaint: seizure, other - Related Data Home Medications Medication Instructions Recorded Confirmed ALPRAZolam [Xanax] 1 mg PO QID PRN 11/02/16 01/17/17 oxyCODONE-APAP 10-325MG [Percocet 1 tab PO TID PRN 11/02/16 01/17/17 10-325 mg] Losartan/Hydrochlorothiazide 1 tab PO DAILY 12/04/16 01/17/17 [Hyzaar 100-12.5 Tablet] Aspirin 162.5 mg PO DAILY PRN 01/17/17 01/17/17 Gabapentin [Neurontin] 600 mg PO TID 01/17/17 01/17/17 Allergies Allergy/AdvReac Type Severity Reaction Status Date / Time ciprofloxacin [From Cipro] Allergy Unknown Verified 01/17/17 19:41 Iodinated Contrast- Oral and AdvReac "PASSED Verified 01/17/17 19:41 IV Dye OUT FOR 3 [Iodinated Contrast Media - DAYS" Oral and] Review of Systems ROS Statement: Those systems with pertinent positive or pertinent negative responses have been documented in the HPI. ROS Other: All systems not noted in ROS Statement are negative. Past Medical History Past Medical History: COPD, GERD/Reflux, Hyperlipidemia, Hypertension, Osteoarthritis (OA), Pneumonia, Thyroid Disorder Additional Past Medical History / Comment(s): DDD back, spinal cord impingment, herniated disc spine with spurs, neuropathy, rediculopathy, scoliosis, carpel tunner History of Any Multi-Drug Resistant Organisms: None Reported Past Surgical History: No Surgical Hx Reported Past Anesthesia/Blood Transfusion Reactions: No Reported Reaction, Motion Sickness Past Psychological History: Anxiety Smoking Status: Current every day smoker Past Alcohol Use History: Daily Past Drug Use History: None Reported - Past Family History Father Family Medical History: Coronary Artery Disease (CAD) Additional Family Medical History / Comment(s): CABG Mother Family Medical History: Coronary Artery Disease (CAD) Additional Family Medical History / Comment(s): CABG General Exam - General Exam Comments Initial Comments: This is a well-developed well-nourished awake alert oriented 3 male he does demonstrate a [place] Coma Scale of 15 at this time Limitations: no limitations General appearance: alert, in no apparent distress Head exam: Present: other (No tenderness palpation of the scalp no step-off. There are multiple abrasions seen to the face right forehead right lateral orbit and inferior orbit right side of the mouth and chin.) Eye exam: Present: normal appearance, PERRL, EOMI. Absent: scleral icterus, conjunctival injection, periorbital swelling ENT exam: Present: mucous membranes moist, other (Dried blood noted in the mouth no evidence of any fractured teeth or avulsed teeth at this time) Neck exam: Present: normal inspection. Absent: tenderness, meningismus, lymphadenopathy Respiratory exam: Present: normal lung sounds bilaterally. Absent: respiratory distress, wheezes, rales, rhonchi, stridor Cardiovascular Exam: Present: normal rhythm, tachycardia, normal heart sounds. Absent: systolic murmur, diastolic murmur, rubs, gallop, clicks GI/Abdominal exam: Present: soft, normal bowel sounds. Absent: distended, tenderness, guarding, rebound, rigid Extremities exam: Present: normal inspection, full ROM, normal capillary refill. Absent: tenderness, pedal edema, joint swelling, calf tenderness Back exam: Present: normal inspection Neurological exam: Present: alert, oriented X3, CN II-XII intact Psychiatric exam: Present: normal affect, normal mood Skin exam: Present: warm, dry, intact, normal color. Absent: rash Course Vital Signs 01/17/17 01/17/17 19:09 20:01 Temperature 99.1 F Pulse Rate 103 H 84 Respiratory 18 16 Rate Blood Pressure 156/74 145/64 O2 Sat by Pulse 95 98 Oximetry Medical Decision Making - Medical Decision Making I did reevaluate the patient on several occasions he remains awake alert oriented history of a [place] Coma Scale of 15. Patient will require admission for evaluation new-onset seizure. I did discuss the case with Dr. Anne patient will be admitted to the medicine service I did discuss this case with Dr. Rios. - Lab Data Result diagrams: 01/17/17 19:30 01/17/17 19:30 Lab Results 01/17/17 01/17/17 01/17/17 Range/Units 19:30 19:30 19:39 WBC 16.4 H (3.8-10.6) k/uL RBC 5.09 (4.30-5.90) m/uL Hgb 16.6 (13.0-17.5) gm/dL Hct 48.4 (39.0-53.0) % MCV 95.1 (80.0-100.0) fL MCH 32.6 (25.0-35.0) pg MCHC 34.2 (31.0-37.0) g/dL RDW 14.0 (11.5-15.5) % Plt Count 358 (150-450) k/uL Neutrophils % 87 % Lymphocytes % 5 % Monocytes % 6 % Eosinophils % 1 % Basophils % 0 % Neutrophils # 14.4 H (1.3-7.7) k/uL Lymphocytes # 0.9 L (1.0-4.8) k/uL Monocytes # 1.0 (0-1.0) k/uL Eosinophils # 0.1 (0-0.7) k/uL Basophils # 0.1 (0-0.2) k/uL Sodium 137 (137-145) mmol/L Potassium 3.8 (3.5-5.1) mmol/L Chloride 101 (98-107) mmol/L Carbon Dioxide 23 (22-30) mmol/L Anion Gap 13 mmol/L BUN 6 L (9-20) mg/dL Creatinine 1.00 (0.66-1.25) mg/dL Est GFR (MDRD) Af Amer >60 (>60 ml/min/1.73 sqM) Est GFR (MDRD) Non-Af >60 (>60 ml/min/1.73 sqM) Glucose 120 H (74-99) mg/dL Calcium 10.3 H (8.4-10.2) mg/dL Magnesium 2.3 (1.6-2.3) mg/dL Total Bilirubin 0.5 (0.2-1.3) mg/dL AST 19 (17-59) U/L ALT 27 (21-72) U/L Alkaline Phosphatase 72 (38-126) U/L Total Creatine Kinase 140 (55-170) U/L CK-MB (CK-2) 1.4 (0.0-2.4) ng/mL CK-MB (CK-2) Rel Index 1.0 Troponin I <0.012 (0.000-0.034) ng/mL Total Protein 8.8 H (6.3-8.2) g/dL Albumin 4.9 (3.5-5.0) g/dL TSH 13.800 H (0.465-4.680) mIU/L Free T4 0.70 L (0.78-2.19) ng/dL Urine Color Urine Appearance (Clear) Urine pH (5.0-8.0) Ur Specific [place] (1.001-1.035) Urine Protein (Negative) Urine Glucose (UA) (Negative) Urine Ketones (Negative) Urine Blood (Negative) Urine Nitrite (Negative) Urine Bilirubin (Negative) Urine Urobilinogen (<2.0) mg/dL Ur Leukocyte Esterase (Negative) Urine RBC (0-5) /hpf Urine WBC (0-5) /hpf Amorphous Sediment (None) /hpf Hyaline Casts (0-2) /lpf Urine Mucus (None) /hpf Salicylates <1.0 mg/dL Urine Opiates Screen (NotDetected) Ur Oxycodone Screen (NotDetected) Urine Methadone Screen (NotDetected) Ur Propoxyphene Screen (NotDetected) Acetaminophen <10.0 ug/mL Ur Barbiturates Screen (NotDetected) U Tricyclic Antidepress (NotDetected) Ur Phencyclidine Scrn (NotDetected) Ur Amphetamines Screen (NotDetected) U Methamphetamines Scrn (NotDetected) U Benzodiazepines Scrn (NotDetected) Urine Cocaine Screen (NotDetected) U Marijuana (THC) Screen (NotDetected) Serum Alcohol <10 mg/dL 08/09/17 08/09/17 Range/Units 20:00 20:00 WBC (3.8-10.6) k/uL RBC (4.30-5.90) m/uL Hgb (13.0-17.5) gm/dL Hct (39.0-53.0) % MCV (80.0-100.0) fL MCH (25.0-35.0) pg MCHC (31.0-37.0) g/dL RDW (11.5-15.5) % Plt Count (150-450) k/uL Neutrophils % % Lymphocytes % % Monocytes % % Eosinophils % % Basophils % % Neutrophils # (1.3-7.7) k/uL Lymphocytes # (1.0-4.8) k/uL Monocytes # (0-1.0) k/uL Eosinophils # (0-0.7) k/uL Basophils # (0-0.2) k/uL Sodium (137-145) mmol/L Potassium (3.5-5.1) mmol/L Chloride (98-107) mmol/L Carbon Dioxide (22-30) mmol/L Anion Gap mmol/L BUN (9-20) mg/dL Creatinine (0.66-1.25) mg/dL Est GFR (MDRD) Af Amer (>60 ml/min/1.73 sqM) Est GFR (MDRD) Non-Af (>60 ml/min/1.73 sqM) Glucose (74-99) mg/dL Calcium (8.4-10.2) mg/dL Magnesium (1.6-2.3) mg/dL Total Bilirubin (0.2-1.3) mg/dL AST (17-59) U/L ALT (21-72) U/L Alkaline Phosphatase (38-126) U/L Total Creatine Kinase (55-170) U/L CK-MB (CK-2) (0.0-2.4) ng/mL CK-MB (CK-2) Rel Index Troponin I (0.000-0.034) ng/mL Total Protein (6.3-8.2) g/dL Albumin (3.5-5.0) g/dL TSH (0.465-4.680) mIU/L Free T4 (0.78-2.19) ng/dL Urine Color Yellow Urine Appearance Clear (Clear) Urine pH 6.0 (5.0-8.0) Ur Specific [place] 1.012 (1.001-1.035) Urine Protein 1+ H (Negative) Urine Glucose (UA) Negative (Negative) Urine Ketones 1+ H (Negative) Urine Blood Small H (Negative) Urine Nitrite Negative (Negative) Urine Bilirubin Negative (Negative) Urine Urobilinogen <2.0 (<2.0) mg/dL Ur Leukocyte Esterase Negative (Negative) Urine RBC 14 H (0-5) /hpf Urine WBC 2 (0-5) /hpf Amorphous Sediment Rare H (None) /hpf Hyaline Casts 13 H (0-2) /lpf Urine Mucus Many H (None) /hpf Salicylates mg/dL Urine Opiates Screen Not Detected (NotDetected) Ur Oxycodone Screen Detected H (NotDetected) Urine Methadone Screen Not Detected (NotDetected) Ur Propoxyphene Screen Not Detected (NotDetected) Acetaminophen ug/mL Ur Barbiturates Screen Detected H (NotDetected) U Tricyclic Antidepress Not Detected (NotDetected) Ur Phencyclidine Scrn Not Detected (NotDetected) Ur Amphetamines Screen Not Detected (NotDetected) U Methamphetamines Scrn Not Detected (NotDetected) U Benzodiazepines Scrn Detected H (NotDetected) Urine Cocaine Screen Not Detected (NotDetected) U Marijuana (THC) Screen Not Detected (NotDetected) Serum Alcohol mg/dL - EKG Data -: EKG Interpreted by Ri EKG shows normal: sinus rhythm (Sinus tachycardia rate of 11 appear of 01 58 QRS of 108 daily since QTC of 346/448 that anterior fascicular block no acute ST -T wave changes) - Radiology Data Radiology results: report reviewed (I did review the imaging and reports no acute findings.), image reviewed Disposition Clinical Impression: New onset seizure, Facial abrasion Disposition: ADMITTED IP TO THIS [facility] Condition: Stable Referrals: Dominik Rios MD [Primary Care Provider] - 1-2 days
[2017-01-17 19:39] LABS: Basophils # (A) 0.1 k/uL (0-0.2); Basophils % (A) 0 %; CH 34.1; Eosinophils # (A) 0.1 k/uL (0-0.7); Eosinophils % (A) 1 %; HCT 48.4 % (39.0-53.0); HDW 2.54; HGB 16.6 gm/dL (13.0-17.5); Luc # (Auto) 0.06; Luc % (Auto) 0; Lymphocytes # (A) 0.9 k/uL (1.0-4.8); Lymphocytes % (A) 5 %; MCH 32.6 pg (25.0-35.0); MCHC 34.2 g/dL (31.0-37.0); MCV 95.1 fL (80.0-100.0); Mean Platelet Volume 7.3; Monocytes % (A) 6 %; Neutrophils # (A) 14.4 k/uL (1.3-7.7); Neutrophils % (A) 87 %; RBC 5.09 m/uL (4.30-5.90); WBC 16.4 k/uL (3.8-10.6); WBC (Perox) 16.55
[2017-01-17 19:48] LABS: ALT 27 U/L (21-72); AST 19 U/L (17-59); Acetaminophen <10.0 ug/mL; Alcohol <10 mg/dL; Alkaline Phosphatase 72 U/L (38-126); Anion Gap 13 mmol/L; Blood Urea Nitrogen 6 mg/dL (9-20); Calcium 10.3 mg/dL (8.4-10.2); Carbon Dioxide 23 mmol/L (22-30); Chloride 101 mmol/L (98-107); Glucose 120 mg/dL (74-99); Magnesium 2.3 mg/dL (1.6-2.3); Non-African American GFR(MDRD) >60 (>60 ml/min/1.73 sqM); Potassium 3.8 mmol/L (3.5-5.1); Salicylate <1.0 mg/dL; Sodium 137 mmol/L (137-145); Total Bilirubin 0.5 mg/dL (0.2-1.3); Total Protein 8.8 g/dL (6.3-8.2)
[2017-01-17 20:05] LABS: Creatine Kinase 140 U/L (55-170)
[2017-01-17 20:11] LABS: Amorphous Sediment,Urine Rare /hpf; Appearance,Urine Clear (Clear); Bilirubin,Urine Negative (Negative); Glucose,Urine (UA) Negative (Negative); Ketones,Urine 1+ (Negative); Leukocyte Esterase,Urine Negative (Negative); Mucus,Urine Many /hpf; Nitrite,Urine Negative (Negative); Particle Count 1221; Protein,Urine 1+ (Negative); RBC,Urine 14 /hpf (0-5); Specific Gravity,Urine 1.012 (1.001-1.035); UA Billing (MACRO vs. MICRO) MICRO; Urobilinogen,Urine <2.0 mg/dL (<2.0); WBC,Urine 2 /hpf (0-5)
--- NOTE | 2017-01-17 20:16 | CT ---
EXAMINATION TYPE: CT brain [place] [facility] DATE OF EXAM: 01/17/2017 COMPARISON: NONE HISTORY: SEIZURE WITH HEAD INJURY AND NECK PAIN TODAY. CT DLP: 1352.5 mGycm. Automated Exposure Control for Dose Reduction was Utilized. TECHNIQUE: CT scan of the head and cervical spine are performed without contrast. FINDINGS: There is no acute intracranial hemorrhage, mass effect, or midline shift identified. The ventricles and sulci are within normal limits in size. Muhammad-white matter differentiation is maintain ed. Dependent air-fluid level is seen in lateral aspect of right sphenoid sinus. The globes are intac t and the visualized sinuses are otherwise clear. The calvarium is intact. Cervical spine is visualized in its entirety from C1 through upper thoracic levels and demonstrates r eversal of normal cervical curvature without evidence of acute fracture or dislocation. Prevertebral soft tissue appears within normal limits. The C1-C2 articulation is within normal limits on the cor onal images. Vertebral body heights are maintained. There is moderate disc space narrowing and spurring C5-C6 leve l. There is moderate to severe spurring and disc space narrowing with sclerosis right C6-C7 level. Po sterior spur disc complexes are effacing anterior thecal sac at C5-C6 and C6-C7 levels on sagittal an d axial images. Heterogeneous slightly prominent thyroid gland is seen. There is moderate posterior a pical scarring in both lung apices. IMPRESSION: 1. There is no acute fracture or dislocation evident in the cervical spine. 2. No acute intracranial hemorrhage, mass effect, or midline shift is seen.
[2017-01-17 20:17] LABS: Creatine Kinase MB 1.4 ng/mL (0.0-2.4); Troponin I <0.012 ng/mL (0.000-0.034)
--- NOTE | 2017-01-17 20:51 | XR ---
EXAMINATION TYPE: XR chest 2V DATE OF EXAM: 01/17/2017 COMPARISON: Chest x-ray from November 02, 2016 HISTORY: Cough per order. TECHNIQUE: Frontal and lateral views of the chest are obtained. FINDINGS: There is eventration of the anterior aspect of right hemidiaphragm redemonstrated. There i s no focal air space opacity, pleural effusion, or pneumothorax seen. The cardiac silhouette size is within normal limits. The osseous structures are intact. IMPRESSION: No suspicious acute pulmonary process. No significant change from prior.
[2017-01-17] MEDS ORDERED: NALOXONE 0.4 MG/ML 1 ML VIAL IV PRN (22:24)
[2017-01-17 23:15] VITALS: BMI 26.9
[2017-01-17] MEDS: ACETAMINOPHEN TAB 325 MG TAB PO PRN (23:30)
[2017-01-17] MEDS: SODIUM CHLORIDE 0.9% 1,000 ML IV SCH (23:42)
[2017-01-18] MEDS ORDERED: ASPIRIN 325 MG TAB PO PRN (09:49)
[2017-01-18] MEDS ORDERED: ALPRAZolam 0.5 MG TAB PO PRN (09:49)
--- NOTE | 2017-01-18 11:12 | P.HPIM ---
History of Present Illness 51-year-old male was brought to the emergency room after grand mal seizure new- onset. Patient is opioid dependent from spinal stenosis. Noted abrasions to face elbows and knees. Patient is to have neurology consultation Review of Systems Musculoskeletal: bilateral: elbow pain, knee pain Integumentary: Reports wounds (Facial elbows knees abrasions) Past Medical History Past Medical History: COPD, GERD/Reflux, Hyperlipidemia, Hypertension, Osteoarthritis (OA), Pneumonia, Thyroid Disorder Additional Past Medical History / Comment(s): DDD back, spinal cord impingment, herniated disc spine with spurs, neuropathy, rediculopathy, scoliosis, carpel tunner History of Any Multi-Drug Resistant Organisms: None Reported Past Surgical History: No Surgical Hx Reported Past Anesthesia/Blood Transfusion Reactions: No Reported Reaction, Motion Sickness Past Psychological History: Anxiety Smoking Status: Current every day smoker Past Alcohol Use History: Daily Past Drug Use History: None Reported - Past Family History Father Family Medical History: Coronary Artery Disease (CAD) Additional Family Medical History / Comment(s): CABG Mother Family Medical History: Coronary Artery Disease (CAD) Additional Family Medical History / Comment(s): CABG Medications and Allergies Home Medications Medication Instructions Recorded Confirmed Type ALPRAZolam [Xanax] 1 mg PO QID PRN 11/02/16 01/17/17 History oxyCODONE-APAP 10-325MG [Percocet 1 tab PO TID PRN 11/02/16 01/17/17 History 10-325 mg] Losartan/Hydrochlorothiazide 1 tab PO DAILY 12/04/16 01/17/17 History [Hyzaar 100-12.5 Tablet] Aspirin 162.5 mg PO DAILY PRN 01/17/17 01/17/17 History Gabapentin [Neurontin] 600 mg PO TID 01/17/17 01/17/17 History Allergies Allergy/AdvReac Type Severity Reaction Status Date / Time ciprofloxacin [From Cipro] Allergy Unknown Verified 01/17/17 19:41 Iodinated Contrast- Oral and AdvReac "PASSED Verified 01/17/17 19:41 IV Dye OUT FOR 3 [Iodinated Contrast Media - DAYS" Oral and] Physical Exam Vitals: Vital Signs Temp Pulse Pulse Resp BP BP Pulse Ox 01/18/17 07:00 98.9 F 85 16 155/66 95 01/18/17 00:00 82 18 01/17/17 23:17 99 F 82 18 148/83 96 01/17/17 22:43 89 16 142/60 99 01/17/17 20:01 84 16 145/64 98 01/17/17 19:09 99.1 F 103 H 18 156/74 95 Intake and Output 01/17/17 01/18/17 01/18/17 22:59 06:59 14:59 Intake Total 100 Output Total 450 Balance -350 Intake: Intake, IV Titration 100 Amount Sodium Chloride 0.9% 1, 100 000 ml @ 20 mls/hr IV . Q24H [facility] Rx#:[id number] Output: Urine 450 Other: # Voids 2 Weight 90.265 kg 90.265 kg - Constitutional General appearance: mild distress - EENT Eyes: PERRLA ENT: normal oropharynx - Neck Neck: normal ROM - Respiratory Respiratory: bilateral: CTA - Cardiovascular Rhythm: regular - Gastrointestinal General gastrointestinal: soft - Integumentary Facial abrasions abrasions to bilateral elbows and knees - Neurologic Neurologic: CNII-XII intact - Psychiatric Psychiatric: A&O x's 3, appropriate affect, intact judgment & insight Results CBC & Chem 7: 01/17/17 19:30 01/17/17 19:30 Labs: Abnormal Lab Results - Last 24 Hours (Table) 01/17/17 01/17/17 01/17/17 Range/Units 19:30 19:30 20:00 WBC 16.4 H (3.8-10.6) k/uL Neutrophils # 14.4 H (1.3-7.7) k/uL Lymphocytes # 0.9 L (1.0-4.8) k/uL BUN 6 L (9-20) mg/dL Glucose 120 H (74-99) mg/dL Calcium 10.3 H (8.4-10.2) mg/dL Total Protein 8.8 H (6.3-8.2) g/dL TSH 13.800 H (0.465-4.680) mIU/L Free T4 0.70 L (0.78-2.19) ng/dL Urine Protein (Negative) Urine Ketones (Negative) Urine Blood (Negative) Urine RBC (0-5) /hpf Amorphous Sediment (None) /hpf Hyaline Casts (0-2) /lpf Urine Mucus (None) /hpf Ur Oxycodone Screen Detected H (NotDetected) Ur Barbiturates Screen Detected H (NotDetected) U Benzodiazepines Scrn Detected H (NotDetected) 01/17/17 Range/Units 20:00 WBC (3.8-10.6) k/uL Neutrophils # (1.3-7.7) k/uL Lymphocytes # (1.0-4.8) k/uL BUN (9-20) mg/dL Glucose (74-99) mg/dL Calcium (8.4-10.2) mg/dL Total Protein (6.3-8.2) g/dL TSH (0.465-4.680) mIU/L Free T4 (0.78-2.19) ng/dL Urine Protein 1+ H (Negative) Urine Ketones 1+ H (Negative) Urine Blood Small H (Negative) Urine RBC 14 H (0-5) /hpf Amorphous Sediment Rare H (None) /hpf Hyaline Casts 13 H (0-2) /lpf Urine Mucus Many H (None) /hpf Ur Oxycodone Screen (NotDetected) Ur Barbiturates Screen (NotDetected) U Benzodiazepines Scrn (NotDetected) Chest x-ray: report reviewed CT Scan - head: report reviewed Thrombosis Risk Factor Assmnt - Choose All That Apply Each Factor Represents 1 point: Age 41-60 years Other Risk Factors: No Other congenital or acquired thrombophilia - If yes, enter type in comment: No Thrombosis Risk Factor Assessment Total Risk Factor Score: 1 Thrombosis Risk Factor Assessment Level: Low Risk Assessment and Plan Plan: Assessment Grand mal seizure new-onset Facial abrasions Abrasions to elbows and knees History of COPD GERD hyperlipidemia Hyper tension Osteoarthritis with spinal stenosis opioid dependence Hypothyroidism not taking medication Plan Neurology consultation Synthroid 50 started
[2017-01-18] MEDS: oxyCODONE-APAP 10-325MG 1 EACH TAB PO PRN ×2 (15:33→23:04)
[2017-01-18] MEDS: GABAPENTIN 300 MG CAP PO SCH ×2 (17:05→21:34)
--- NOTE | 2017-01-18 21:09 | P.CNNES ---
History of Present Illness Consult date: 01/18/17 Requesting physician: Dominik Rios Reason for Consult: Seizure Chief complaint: Seizure History of Present Illness: The patient is a pleasant 51-year-old male who is being evaluated by the neurology service per the request of Dr. Jolene Rios for a new onset seizure. The patient was brought into [facility] emergency room after he had a witnessed seizure which was described as a generalized tonic-clonic seizure which lasted 1-2 minutes and was followed by significant confusion and combativeness. The patient slowly did return to baseline. He did suffer facial injuries as he was on the stairs when he had the seizure. No fractures occurred. A computed tomography scan of the brain was done in the emergency room which was normal. His computed tomography scan of the cervical spine showed no signs of any fractures. His CBC showed leukocytosis at 16.4 with elevated neutrophil count and reduced lymphocyte count. The patient denies any fevers, recent travel, or ill contacts. He denies starting any new medications. His comprehensive metabolic profile was normal except for slightly elevated calcium at 10.3. His cardiac enzymes were negative. His thyroid panel was abnormal with elevated TSH and low free T4. His urine drug screen was inconsistent as it was positive for opiates, benzodiazepine, and barbiturates. The test was negative for oxycodone. According to his home meds , he is on oxycodone and no opiates. It is also unclear why his test was positive for barbiturates. As for his blood benzodiazepine, he does take Xanax when necessary which is prescribed to him. At the time of my evaluation, the patient is resting in his bed and appears to be in no acute distress. Review of Systems All systems: negative Constitutional: Denies chills, Denies fever Eyes: denies blurred vision, denies pain Ears, nose, mouth and throat: Denies headache, Denies sore throat Cardiovascular: Denies chest pain, Denies shortness of breath Respiratory: Denies cough Gastrointestinal: Denies abdominal pain, Denies diarrhea, Denies nausea, Denies vomiting Musculoskeletal: Reports low back pain, Reports neck pain Integumentary: Denies pruritus, Denies rash Neurological: Reports seizures, Denies numbness, Denies weakness Psychiatric: Denies anxiety, Denies depression Endocrine: Denies fatigue, Denies weight change Past Medical History Past Medical History: COPD, GERD/Reflux, Hyperlipidemia, Hypertension, Osteoarthritis (OA), Pneumonia, Thyroid Disorder Additional Past Medical History / Comment(s): DDD back, spinal cord impingment, herniated disc spine with spurs, neuropathy, rediculopathy, scoliosis, carpel tunner History of Any Multi-Drug Resistant Organisms: None Reported Past Surgical History: No Surgical Hx Reported Past Anesthesia/Blood Transfusion Reactions: No Reported Reaction, Motion Sickness Past Psychological History: Anxiety Smoking Status: Current every day smoker Past Alcohol Use History: Daily Past Drug Use History: None Reported - Past Family History Father Family Medical History: Coronary Artery Disease (CAD) Additional Family Medical History / Comment(s): CABG Mother Family Medical History: Coronary Artery Disease (CAD) Additional Family Medical History / Comment(s): CABG Medications and Allergies Home Medications Medication Instructions Recorded Confirmed Type ALPRAZolam [Xanax] 1 mg PO QID PRN 11/02/16 01/17/17 History oxyCODONE-APAP 10-325MG [Percocet 1 tab PO TID PRN 11/02/16 01/17/17 History 10-325 mg] Losartan/Hydrochlorothiazide 1 tab PO DAILY 12/04/16 01/17/17 History [Hyzaar 100-12.5 Tablet] Aspirin 162.5 mg PO DAILY PRN 01/17/17 01/17/17 History Gabapentin [Neurontin] 600 mg PO TID 01/17/17 01/17/17 History Allergies Allergy/AdvReac Type Severity Reaction Status Date / Time ciprofloxacin [From Cipro] Allergy Unknown Verified 01/17/17 19:41 Iodinated Contrast- Oral and AdvReac "PASSED Verified 01/17/17 19:41 IV Dye OUT FOR 3 [Iodinated Contrast Media - DAYS" Oral and] Physical Examination - Vital Signs Vital Signs: Vital Signs Temp Pulse Pulse Resp BP BP Pulse Ox 01/18/17 15:00 98.2 F 58 L 16 130/57 95 01/18/17 07:00 98.9 F 85 16 155/66 95 01/18/17 00:00 82 18 01/17/17 23:17 99 F 82 18 148/83 96 01/17/17 22:43 89 16 142/60 99 Intake and Output 01/18/17 01/18/17 01/18/17 06:59 14:59 22:59 Intake Total 100 180 Output Total 450 Balance -350 180 Intake: Intake, IV Titration 100 180 Amount Sodium Chloride 0.9% 1, 100 180 000 ml @ 20 mls/hr IV . Q24H [facility] Rx#:[id number] Output: Urine 450 Other: # Voids 2 Weight 90.265 kg - Constitutional General appearance: average body habitus, cooperative - EENT EENT: PERRL, hearing intact, other (Superficial abrasions are seen on the face.) - Cardiovascular Cardiovascular: regular rate Extremities: no peripheral edema bilaterally - Gastrointestinal Gastrointestinal: non-tender, non-distended - Integumentary Integumentary: other (Superficial abrasions are seen on the extremities.) - Neurologic The patient is alert aware and oriented 3. Speech and language are normal. Strength is full in all 4 extremities. Sensory exam was normal to light touch in all 4 extremities. No tremors or seizure-like activity is seen. No facial asymmetry is noticed on cranial nerve testing. - Psychiatric Psychiatric: mood/affect appropriate Results - Laboratory Findings CBC and BMP: 01/17/17 19:30 01/17/17 19:30 Abnormal Lab Findings: Abnormal Labs 01/17/17 01/17/17 01/17/17 19:30 19:30 20:00 WBC 16.4 H Neutrophils # 14.4 H Lymphocytes # 0.9 L BUN 6 L Glucose 120 H Calcium 10.3 H Total Protein 8.8 H TSH 13.800 H Free T4 0.70 L Urine Protein Urine Ketones Urine Blood Urine RBC Amorphous Sediment Hyaline Casts Urine Mucus Ur Oxycodone Screen Detected H Ur Barbiturates Screen Detected H U Benzodiazepines Scrn Detected H 01/17/17 20:00 WBC Neutrophils # Lymphocytes # BUN Glucose Calcium Total Protein TSH Free T4 Urine Protein 1+ H Urine Ketones 1+ H Urine Blood Small H Urine RBC 14 H Amorphous Sediment Rare H Hyaline Casts 13 H Urine Mucus Many H Ur Oxycodone Screen Ur Barbiturates Screen U Benzodiazepines Scrn - Diagnostic Findings Comments: I reviewed his computed tomography scan of the brain and cervical spine. I also reviewed his laboratory workup as mentioned above. Assessment and Plan (1) New onset seizure Status: Acute (2) Thyroid function test abnormal Status: Acute (3) Facial abrasion Status: Acute (4) Back pain Status: Chronic Plan: The patient did have a witnessed generalized tonic-clonic seizure lasting 1-2 minutes and followed by postictal confusion and combativeness. He denies any previous history of seizures and denies any recurrence since then. No antiepileptic medications will be started at this time as this is his first and only seizure. An EEG will be ordered. Continue seizure precautions for now. As mentioned above, his urine drug screen was inconsistent and it is unclear if this played a role in his seizure. Although he does have leukocytosis, there is no evidence of any intracranial infection as he has no nuchal rigidity, no headache, and he is quite awake and oriented. I do recommend further workup for his leukocytosis. I will repeat his CBC in the morning. Continue his home medications. Continue neuro checks. I also recommend further workup for his thyroid function test abnormality. I will continue to follow with you. Further recommendations to follow. Thank you Dr. Rios for allowing me to participate in the care of your patient. If you have any questions, please for free to contact me. Time with Patient: Greater than 30
[2017-01-18] MEDS: ACETAMINOPHEN TAB 325 MG TAB PO PRN (21:34)
[2017-01-18] MEDS: SODIUM CHLORIDE 0.9% 1,000 ML IV SCH (21:40)
[2017-01-19] MEDS ORDERED: LEVOTHYROXINE 50 MCG TAB PO SCH (06:30)
[2017-01-19 07:49] VITALS: RESP 18
[2017-01-19 07:51] LABS: Basophils # (A) 0.1 k/uL (0-0.2); Basophils % (A) 1 %; CH 32.8; CHCM 34.4; Eosinophils # (A) 0.2 k/uL (0-0.7); Eosinophils % (A) 2 %; HCT 44.1 % (39.0-53.0); HGB 15.4 gm/dL (13.0-17.5); Luc # (Auto) 0.19; Luc % (Auto) 2; Lymphocytes # (A) 3.1 k/uL (1.0-4.8); Lymphocytes % (A) 32 %; MCH 33.4 pg (25.0-35.0); MCHC 34.8 g/dL (31.0-37.0); Mean Platelet Volume 6.8; Monocytes % (A) 11 %; Neutrophils # (A) 5.1 k/uL (1.3-7.7); Neutrophils % (A) 53 %; RDW 13.4 % (11.5-15.5); WBC 9.7 k/uL (3.8-10.6); WBC (Perox) 10.22
[2017-01-19] MEDS: oxyCODONE-APAP 10-325MG 1 EACH TAB PO PRN (08:51)
[2017-01-19] MEDS: GABAPENTIN 300 MG CAP PO SCH (08:58)
[2017-01-19] MEDS ORDERED: HYDROCHLOROTHIAZIDE 12.5 MG CAP PO SCH (09:00)
[2017-01-19] MEDS ORDERED: LOSARTAN 50 MG TAB PO SCH (09:00)
[2017-01-19 14:44] VITALS: BP 131/69; PULSE 71; TEMP 98.7
[2017-01-20] MEDS ORDERED: LEVOTHYROXINE 100 MCG TAB PO SCH (06:30)
--- NOTE | 2017-01-23 10:38 | DS ---
FINAL DIAGNOSES: 1. Grand mal seizures, new onset. 2. Facial abrasions. 3. Abrasions of the elbows and knees. 4. Chronic obstructive pulmonary disease. 5. Gastroesophageal reflux disease. 6. Hyperlipidemia. 7. Hypertension. DISCHARGE DISPOSITION: The patient is being discharged in stable condition with guarded prognosis. Discharge cleared by neurology. HISTORY OF PRESENT ILLNESS: This 51-year-old gentleman with past medical history of grand mal seizures, new onset, symptomatically improved significantly. On exam, vital signs are stable. CARDIOVASCULAR: S1, S2 muffled. Abdomen soft. Nervous system: No focal deficits. Dr. Méndez recommended EEG and outpatient follow-up and other workup including CT scans did not show any acute abnormalities. DISCHARGE ADVICE AND MEDICATIONS: 1. Discharge diet is cardiac. 2. Follow-up with Dr. Méndez in two to three days. 3. Follow-up with Dr. Rios in two to three days. 4. Tylenol 650 q6h prn. 5. Xanax 1 mg q.i.d. prn. 6. Aspirin 320 mg tablets half tablet daily. 7. Neurontin 600 mg t.i.d. 8. Synthroid 100 mcg po daily. Please note higher dose. 9. Losartan/hydrochlorothiazide one tablet po daily. 10. Oxycodone one tablet po t.i.d. prn. Once again, the patient will be discharged in stable condition with guarded prognosis. Total time taken: 35 minutes. MTDD
--- NOTE | 2017-01-24 06:08 | EEG ---
DATE OF SERVICE: 01/19/2017 REASON FOR TESTING: Seizure. DESCRIPTION OF THE PROCEDURE: This EEG was performed using a 21-channel, digital electroencephalograph, following international 10-20 system. DESCRIPTION OF THE RECORDING: From the beginning of the tracing, and with the patient's eyes closed, the background rhythm was mostly consisting of 8 to 9 Hz alpha frequency in the posterior occipital leads. No obvious asymmetry is seen. Occasional movement artifacts and muscle artifacts are noticed. Photic stimulation was performed with a minimal driving response seen. No pathological waves were elicited. Hyperventilation was not performed. The patient remains awake throughout the tracing. No epileptiform discharges were seen. His EKG lead showed a regular rate and rhythm. INTERPRETATION: This awake EEG can be considered within normal limits. There was no asymmetry seen. No epileptiform discharges were noticed. The absence of epileptiform discharges does not rule out the diagnosis of epilepsy, therefore clinical correlation is recommended. DOREEND
== END 2017-01-19 16:40 | disposition home or self-care (01) ==
LOC: EC 19:02 → 5MS5E 22:24
PROVIDERS: ADMIT Family Medicine; ATTEND Family Medicine
DX: G40.409 Other generalized epilepsy and epileptic syndromes, not intractable, without status epilepticus (principal); J44.9 Chronic obstructive pulmonary disease, unspecified; K21.9 Gastro-esophageal reflux disease without esophagitis; I10 Essential (primary) hypertension; E78.5 Hyperlipidemia, unspecified; M19.90 Unspecified osteoarthritis, unspecified site; G62.9 Polyneuropathy, unspecified; M41.9 Scoliosis, unspecified; F41.9 Anxiety disorder, unspecified; F17.200 Nicotine dependence, unspecified, uncomplicated; R40.2410 Glasgow coma scale score 13-15, unspecified time; S00.211A Abrasion of right eyelid and periocular area, initial encounter; S00.81XA Abrasion of other part of head, initial encounter; S00.512A Abrasion of oral cavity, initial encounter; S50.312A Abrasion of left elbow, initial encounter; S50.311A Abrasion of right elbow, initial encounter; S80.212A Abrasion, left knee, initial encounter; S80.211A Abrasion, right knee, initial encounter; E03.9 Hypothyroidism, unspecified; F11.20 Opioid dependence, uncomplicated; M48.00 Spinal stenosis, site unspecified; I44.4 Left anterior fascicular block; R00.0 Tachycardia, unspecified; W19.XXXA Unspecified fall, initial encounter; Y93.9 Activity, unspecified; Y92.89 Other specified places as the place of occurrence of the external cause; Z91.041 Radiographic dye allergy status; Z88.2 Allergy status to sulfonamides; Z79.82 Long term (current) use of aspirin; Z82.49 Family history of ischemic heart disease and other diseases of the circulatory system; Z79.899 Other long term (current) drug therapy; M54.9 Dorsalgia, unspecified
CPT/HCPCS: 96360; 96361; 99285; 36415; 95816; 93005; 84439; 80053; 84443; 82550; 82553; 83735; 84484; 85025 ×2; 81001; 80306; 83520 ×2; 80320; 71020; 72125; 70450; G0378 ×3

== ENCOUNTER 2017-07-13 14:39 | Emergency (ER) | payer OTHER ==
[2017-07-13 15:11] VITALS: BP 183/86; PULSE 67; RESP 20; TEMP 98.6
[2017-07-13] MEDS ORDERED: oxyCODONE-APAP 5-325MG 1 EACH TAB PO STA (15:30)
--- NOTE | 2017-07-13 15:55 | ED ---
General Adult HPI - General Chief complaint: Neck Pain/Injury Stated complaint: Back pain Time Seen by Provider: 07/13/17 15:13 Source: patient, RN notes reviewed Mode of arrival: ambulatory Limitations: no limitations - History of Present Illness Initial comments: This is a 51-year-old male with history of chronic neck and back pain who presents to the emergency department with request for pain medication refill. Patient states that his neurologist who prescribed his Percocet recently dropped him as a patient because he missed an appointment. He denies any new injuries or trauma. He states he is here at the emergency department to request a refill of Percocet. Patient states that he has tried taking Aleve and Tylenol in the past and that they do nothing for him. He states that he is unable to follow-up with a surgeon to receive his refills until August. He states his primary care provider will not prescribe narcotics for him. Patient denies saddle paresthesias or loss of bladder or bowel function. - Related Data Home Medications Medication Instructions Recorded Confirmed ALPRAZolam [Xanax] 1 mg PO QID PRN 11/02/16 01/17/17 oxyCODONE-APAP 10-325MG [Percocet 1 tab PO TID PRN 11/02/16 01/17/17 10-325 mg] Losartan/Hydrochlorothiazide 1 tab PO DAILY 12/04/16 01/17/17 [Hyzaar 100-12.5 Tablet] Aspirin 162.5 mg PO DAILY PRN 01/17/17 01/17/17 Gabapentin [Neurontin] 600 mg PO TID 01/17/17 01/17/17 Previous Rx's Medication Instructions Recorded Acetaminophen Tab [Tylenol] 650 mg PO Q6HR PRN tab 01/19/17 Levothyroxine Sodium [Synthroid] 100 mcg PO DAILY@0630 tab 01/19/17 Allergies Allergy/AdvReac Type Severity Reaction Status Date / Time acetaminophen [From [place]] Allergy Rash/Hives Verified 07/13/17 15:12 ciprofloxacin [From Cipro] Allergy Unknown Verified 07/13/17 15:11 hydrocodone [From [place]] Allergy Rash/Hives Verified 07/13/17 15:12 Iodinated Contrast- Oral and AdvReac "PASSED Verified 07/13/17 15:11 IV Dye OUT FOR 3 [Iodinated Contrast Media - DAYS" Oral and] Review of Systems ROS Statement: Those systems with pertinent positive or pertinent negative responses have been documented in the HPI. ROS Other: All systems not noted in ROS Statement are negative. Past Medical History Past Medical History: COPD, GERD/Reflux, Hyperlipidemia, Hypertension, Osteoarthritis (OA), Pneumonia, Thyroid Disorder Additional Past Medical History / Comment(s): DDD back, spinal cord impingment, herniated disc spine with spurs, neuropathy, rediculopathy, scoliosis, carpel tunner History of Any Multi-Drug Resistant Organisms: None Reported Past Surgical History: No Surgical Hx Reported Past Anesthesia/Blood Transfusion Reactions: No Reported Reaction, Motion Sickness Past Psychological History: Anxiety Smoking Status: Current every day smoker Past Alcohol Use History: Daily Past Drug Use History: None Reported - Past Family History Father Family Medical History: Coronary Artery Disease (CAD) Additional Family Medical History / Comment(s): CABG Mother Family Medical History: Coronary Artery Disease (CAD) Additional Family Medical History / Comment(s): CABG General Exam - General Exam Comments Initial Comments: General: Awake and alert, well-developed; in no apparent distress. HEENT: Head atraumatic, normocephalic. Pupils are equal, round and reactive to light. Extraocular movements intact. Oropharynx moist without erythema or exudate. Neck: Supple. Normal ROM. Cardiovascular: Regular rate and rhythm. No murmurs, rubs or gallops. Chest symmetrical. Respiratory: Lungs clear to auscultation bilaterally. No wheezes, rales or rhonchi. Normal respiratory effort with no use of accessory muscles. Musculoskeletal: Normal ROM, no tenderness bilateral upper and lower extremities. No vertebral point tenderness or SI joint tenderness. No tenderness on palpation of the paraspinal muscles. Pedal pulses are 2+ equal and palpable bilaterally. Ambulating normally. Skin: [place], warm and dry without rashes or lesions. Neurological: Alert and oriented x3. CN II-XII grossly intact. Speech is fluent and answers are appropriate. No focal neuro deficits. Psychiatric: Normal mood and affect. No overt signs of depression or anxiety noted. Limitations: no limitations Course Vital Signs 07/13/17 15:09 Temperature 98.6 F Pulse Rate 67 Respiratory 20 Rate Blood Pressure 183/86 O2 Sat by Pulse 99 Oximetry Medical Decision Making - Medical Decision Making This is a 51-year-old male with chronic pain who presents with request for Percocet refill. I explained to patient that the emergency department is not a place to come to have chronic pain medications prescribed. Patient stated, "Then I will be here every day until my appointment in August, even if I have to come with EMS." I discussed this with attending physician, Dr. Duffy. Patient will not be provided a prescription for pain medication. He was given a dose here in the emergency department as he has a ride home. Patient requested a referral to a neurologist. He was given contact information for Dr. Powell. Patient denies any new injuries, saddle paresthesias or loss of bladder or bowel function. He is in no acute distress. He will be discharged home. Disposition Clinical Impression: Chronic neck and back pain Disposition: HOME SELF-CARE Condition: Good Instructions: Chronic Pain (ED), Chronic Back Pain (ED) Additional Instructions: Please follow up with primary care provider within 1-2 days. Return to emergency department if symptoms should worsen or any concerns arise. Referrals: Dominik Rios MD [Primary Care Provider] - 1-2 days Time of Disposition: 15:55
== END 2017-07-13 16:12 | disposition home or self-care (01) ==
LOC: EC 14:39
DX: G89.29 Other chronic pain (principal); M54.2 Cervicalgia; M54.9 Dorsalgia, unspecified; I10 Essential (primary) hypertension; G62.9 Polyneuropathy, unspecified; F17.200 Nicotine dependence, unspecified, uncomplicated; Z79.899 Other long term (current) drug therapy; Z91.041 Radiographic dye allergy status; Z88.1 Allergy status to other antibiotic agents; Z88.5 Allergy status to narcotic agent; Z88.6 Allergy status to analgesic agent
CPT/HCPCS: 99283

== ENCOUNTER 2019-02-04 10:37 | Emergency (ER) | payer OTHER ==
[2019-02-04 10:49] VITALS: RESP 17
[2019-02-04] MEDS ORDERED: LIDOCAINE 5% PATCH TOPICAL STA (11:05)
[2019-02-04] MEDS ORDERED: oxyCODONE-APAP 5-325MG 1 EACH TAB PO STA (11:06)
[2019-02-04] MEDS ORDERED: DEXAMETHASONE SOD PHOSPHATE 10 MG/ML 1 ML VIAL IM STA (11:06)
--- NOTE | 2019-02-04 11:11 | ED ---
Back Pain HPI - General Chief Complaint: Back Pain/Injury Stated Complaint: Back pain Time Seen by Provider: 02/04/19 10:53 Source: patient, EMS Limitations: no limitations - History of Present Illness Initial Comments: Patient is a 53-year-old male with history of degenerative disc disease and chronic low back pain is presenting to emergency Department with chief complaint of low back pain. Patient reports difficulties with back pain for approximately 30 years. Patient reports over the last week his pain has been exacerbated patient reports pain radiating from the lumbosacral region along the posterior aspect of the left little popliteal region. Patient denies any numbness or tingling. Patient reports the pain is exacerbated with ambulation. Patient reports he is prescribed Lyrica the [place] but it is not helping his symptoms. Patient reports piercing taking Percocets and is the only medication that is able to help with the pain. Patient has an appointment scheduled on February 17 with orthopedic surgeon. Patient denies saddle paresthesia, urinary or bowel incontinence. No red flags - Related Data Home Medications Medication Instructions Recorded Confirmed Cholesterol Unknown 1 tab PO HS 02/04/19 02/04/19 Famotidine [Pepcid] 20 mg PO DAILY PRN 02/04/19 02/04/19 Pregabalin [Lyrica] 150 mg PO TID 02/04/19 02/04/19 clonazePAM [KlonoPIN] 2 mg PO BID 02/04/19 02/04/19 Allergies Allergy/AdvReac Type Severity Reaction Status Date / Time acetaminophen [From [place]] Allergy Rash/Hives Verified 02/04/19 11:24 ciprofloxacin [From Cipro] Allergy Unknown Verified 02/04/19 11:24 hydrocodone [From [place]] Allergy Rash/Hives Verified 02/04/19 11:24 Iodinated Contrast- Oral and AdvReac "PASSED Verified 02/04/19 11:24 IV Dye OUT FOR 3 [Iodinated Contrast Media - DAYS" Oral and] Review of Systems ROS Statement: Those systems with pertinent positive or pertinent negative responses have been documented in the HPI. ROS Other: All systems not noted in ROS Statement are negative. Past Medical History Past Medical History: COPD, GERD/Reflux, Hyperlipidemia, Hypertension, Osteoarthritis (OA), Pneumonia, Thyroid Disorder Additional Past Medical History / Comment(s): DDD back, spinal cord impingment, herniated disc spine with spurs, neuropathy, rediculopathy, scoliosis, carpel tunner History of Any Multi-Drug Resistant Organisms: None Reported Past Surgical History: No Surgical Hx Reported Past Anesthesia/Blood Transfusion Reactions: No Reported Reaction, Motion Sickness Past Psychological History: Anxiety Smoking Status: Current every day smoker Past Alcohol Use History: Daily Past Drug Use History: None Reported - Past Family History Father Family Medical History: Coronary Artery Disease (CAD) Additional Family Medical History / Comment(s): CABG Mother Family Medical History: Coronary Artery Disease (CAD) Additional Family Medical History / Comment(s): CABG General Exam Limitations: no limitations General appearance: alert, in no apparent distress Head exam: Present: atraumatic, normocephalic, normal inspection Eye exam: Present: normal appearance, PERRL, EOMI. Absent: conjunctival injection Pupils: Present: normal accommodation ENT exam: Present: normal exam, mucous membranes moist, normal external ear exam Neck exam: Present: normal inspection, full ROM. Absent: tenderness Respiratory exam: Present: normal lung sounds bilaterally Cardiovascular Exam: Present: regular rate, normal rhythm, normal heart sounds GI/Abdominal exam: Present: soft, normal bowel sounds. Absent: tenderness, guarding, rebound Extremities exam: Present: normal inspection, full ROM, normal capillary refill, other (+2 dorsalis pedis and posterior tibialis bilaterally.) Back exam: Present: normal inspection, tenderness (Lumbosacral region tenderness). Absent: full ROM (Limited range of motion with flexion left and right rotation due to pain.), CVA tenderness (R), CVA tenderness (L), muscle spasm, paraspinal tenderness Neurological exam: Present: alert, oriented X3 Psychiatric exam: Present: normal affect, normal mood Skin exam: Present: warm, intact, normal color Course Vital Signs 02/04/19 02/04/19 10:45 12:30 Temperature 98.4 F 98.6 F Pulse Rate 56 L 60 Respiratory 17 17 Rate Blood Pressure 145/83 132/74 O2 Sat by Pulse 97 97 Oximetry Medical Decision Making - Medical Decision Making Patient is a 53-year-old male with history of herniated disc and right low back pain is presenting to emergency department with a chief complaint of low back pain. Based on physical examination the patient appears to have an exacerbation of his h low back pain diagnosis. Patient has chronic low back pain. Patient was given Percocet, Lidoderm patch and steroids. On reevaluation patient reports that he feels better and is ready go home. Patient will be discharged with a towel 3 started pack. 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 No cauda equina. No red flags. Strict return parameters were thoroughly discussed the patient was arsenic and agreeable. Case discussed with physician. Disposition Clinical Impression: Mechanical back pain Disposition: HOME SELF-CARE Condition: Stable Instructions (If sedation given, give patient instructions): Acute Low Back Pain (ED) Additional Instructions: Please follow up with orthopedic surgeon. Please take medication as directed. Please return to emergency department if symptoms worsen. Is patient prescribed a controlled substance at d/c from ED?: No Referrals: [facility],Clinic [Primary Care Provider] - 1-2 days Time of Disposition: 12:13
[2019-02-04] MEDS ORDERED: ACET/COD 300 MG/30 MG STARTER PACK 6 TAB BTL PO STA (12:02)
[2019-02-04 12:38] VITALS: BP 132/74; PULSE 60; TEMP 98.6
== END 2019-02-04 12:31 | disposition home or self-care (01) ==
LOC: EC 10:37
DX: M54.5 Low back pain (principal); G89.29 Other chronic pain; K21.9 Gastro-esophageal reflux disease without esophagitis; F17.200 Nicotine dependence, unspecified, uncomplicated; Z79.899 Other long term (current) drug therapy; Z88.1 Allergy status to other antibiotic agents; Z88.5 Allergy status to narcotic agent; Z88.6 Allergy status to analgesic agent; Z91.041 Radiographic dye allergy status
CPT/HCPCS: 99283; 96372; J1100

== ENCOUNTER → 2019-02-20 | Outpatient (CLI) | payer OTHER | END | disposition home or self-care (01) | LOC: CPPFTMAIN 10:11 | PROVIDERS: ATTEND Internal Medicine | DX: R94.2 Abnormal results of pulmonary function studies (principal) | CPT/HCPCS: 94060; 94726; 94729 ==

== ENCOUNTER 2020-08-09 19:21 | Observation (INO) | payer OTHER ==
[2020-08-09] MEDS ORDERED: NITROGLYCERIN OINT 1 INCH/GM PACKET TOPICAL STA (19:53)
[2020-08-09] MEDS ORDERED: ASPIRIN 81 MG PO STA (19:53)
--- NOTE | 2020-08-09 19:59 | ED ---
General Adult HPI - General Source: patient, RN notes reviewed, old records reviewed Mode of arrival: wheelchair Limitations: no limitations <Chuck Riddle - Last Filed: 08/09/20 21:19> <Marcelo Adrian - Last Filed: 08/09/20 22:50> - General Chief complaint: Chest Pain Stated complaint: Chest pain Time Seen by Provider: 08/09/20 19:25 - History of Present Illness Initial comments: This is a 54-year-old male who has a past medical history significant for smoking. Patient states she had a massive heart attack 1 month ago. Patient states they placed a stent in and he was discharged a couple weeks ago. Patient states today at home he had a sharp pain to the right side of his sabianist and lastly 12 seconds. Patient states a little while later he had a sharp pain in the calf of his left leg and then that went away and then he had a sharp pain in his thigh little bit later. Patient is very anxious and he states he then had some chest pain went away and he had chest pain little bit later. Patient sta aram he has difficulty walking. He short of breath and he thinks that it may have been a little worse today. Patient states he was lightheaded and felt like he might pass out yesterday and is well today. Patient denies any fever chills or cough. (Chuck Riddle) - Related Data Home Medications Medication Instructions Recorded Confirmed Famotidine [Pepcid] 20 mg PO BID 02/04/19 08/09/20 Pregabalin [Lyrica] 150 mg PO TID 02/04/19 08/09/20 Aspirin EC [Ecotrin Low Dose] 81 mg PO DAILY 08/09/20 08/09/20 Atorvastatin [Lipitor] 80 mg PO HS 08/09/20 08/09/20 Carvedilol [Coreg] 6.25 mg PO BID 08/09/20 08/09/20 Furosemide [Lasix] 20 mg PO DAILY 08/09/20 08/09/20 Furosemide [Lasix] 20 mg PO DAILY PRN 08/09/20 08/09/20 Sacubitril/Valsartan [Entresto 24 1 tab PO Q12H 08/09/20 08/09/20 mg-26 mg Tablet] Spironolactone [Aldactone] 25 mg PO DAILY 08/09/20 08/09/20 Ticagrelor [Brilinta] 90 mg PO BID 08/09/20 08/09/20 clonazePAM [KlonoPIN] 0.5 mg PO BID PRN 08/09/20 08/09/20 Allergies Allergy/AdvReac Type Severity Reaction Status Date / Time acetaminophen [From [place]] Allergy Rash/Hives Verified 08/09/20 21:40 ciprofloxacin [From Cipro] Allergy Unknown Verified 08/09/20 21:40 hydrocodone [From [place]] Allergy Rash/Hives Verified 08/09/20 21:40 Iodinated Contrast Media AdvReac "PASSED Verified 08/09/20 21:40 [Iodinated Contrast Media - OUT FOR 3 Oral and] DAYS" Review of Systems ROS Other: All systems not noted in ROS Statement are negative. <Chuck Riddle - Last Filed: 08/09/20 21:19> ROS Other: All systems not noted in ROS Statement are negative. <Marcelo Adrian - Last Filed: 08/09/20 22:50> ROS Statement: Those systems with pertinent positive or pertinent negative responses have been documented in the HPI. Past Medical History Past Medical History: COPD, GERD/Reflux, Hyperlipidemia, Hypertension, Myocardial Infarction ([place]), Osteoarthritis (OA), Pneumonia, Thyroid Disorder Additional Past Medical History / Comment(s): DDD back, spinal cord impingment, herniated disc spine with spurs, neuropathy, rediculopathy, scoliosis, carpel tunner History of Any Multi-Drug Resistant Organisms: None Reported Past Surgical History: No Surgical Hx Reported, Heart Catheterization With Stent Past Anesthesia/Blood Transfusion Reactions: No Reported Reaction, Motion Sickness Past Psychological History: Anxiety Smoking Status: Former smoker Past Alcohol Use History: Daily Past Drug Use History: None Reported - Past Family History Father Family Medical History: Coronary Artery Disease (CAD) Additional Family Medical History / Comment(s): CABG Mother Family Medical History: Coronary Artery Disease (CAD) Additional Family Medical History / Comment(s): CABG <Chuck Riddle - Last Filed: 08/09/20 21:19> General Exam Limitations: no limitations <Chuck Riddle - Last Filed: 08/09/20 21:19> - General Exam Comments Initial Comments: GENERAL: Patient is well-developed and well-nourished. Patient is nontoxic and well- hydrated and is in mild distress. ENT: Neck is soft and supple. No significant lymphadenopathy is noted. Oropharynx is clear. Moist mucous membranes. Neck has full range of motion without elicit ing any pain. EYES: The sclera were anicteric and conjunctiva were pink and moist. Extraocular mo vements were intact and pupils were equal round and reactive to light. Eyelids were unremarkable. PULMONARY: Unlabored respirations. Good breath sounds bilaterally. No audible rales rhonchi or wheezing was noted. CARDIOVASCULAR: There is a regular rate and rhythm without any murmurs gallops or rubs. ABDOMEN: Soft and nontender with normal bowel sounds. SKIN: Skin is clear with no lesions or rashes and otherwise unremarkable. NEUROLOGIC: Patient is alert and oriented x3. Cranial nerves II through XII are grossly intact. Motor and sensory are also intact. Normal speech, volume and content. Symmetrical smile. MUSCULOSKELETAL: Normal extremities with adequate strength and full range of motion. No lower extremity swelling or edema. No calf tenderness. LYMPHATICS: No significant lymphadenopathy is noted PSYCHIATRIC: Patient is very anxious (Chuck Riddle) Course Vital Signs 08/09/20 08/09/20 19:25 21:10 Temperature 98.2 F Pulse Rate 68 61 Respiratory 18 20 Rate Blood Pressure 87/56 103/64 O2 Sat by Pulse 99 100 Oximetry Medical Decision Making - Lab Data Result diagrams: 08/09/20 19:59 08/09/20 19:59 <Chuck Riddle - Last Filed: 08/09/20 21:19> - Lab Data Result diagrams: 08/09/20 19:59 08/09/20 19:59 <Marcelo Adrian - Last Filed: 08/09/20 22:50> - Medical Decision Making EKG shows normal sinus rhythm at 61 bpm MI interval is 180 QRSs 116 QT interval 420 QTC is 422. Patient's EKG shows no ST segment elevation or depression. Patient is Q waves in leads V1 through V6 as well as inferior leads. Dr. Adrian will be taking over the care of this patient at 9pm. (Chuck Riddle) The patient's laboratory did show elevation of the troponin as well as elevation of the d-dimer. The computed tomography scan of the thorax with contrast /angiography does not show any evidence of pulmonary embolism or acute process. It is felt as though he would require admission to the hospital for further cardiac treatment. He is agreeable. Case is discussed with Moira Lehman for internal medicine and he is agreeable with admission with cardiology to consult. (Marcelo Adrian) - Lab Data Lab Results 08/09/20 08/09/20 08/09/20 Range/Units 19:59 19:59 19:59 WBC 12.4 H (3.8-10.6) k/uL RBC 4.78 (4.30-5.90) m/uL Hgb 15.5 (13.0-17.5) gm/dL Hct 44.3 (39.0-53.0) % MCV 92.7 (80.0-100.0) fL MCH 32.4 (25.0-35.0) pg MCHC 35.0 (31.0-37.0) g/dL RDW 12.6 (11.5-15.5) % Plt Count 236 (150-450) k/uL MPV 7.9 Neutrophils % 52 % Lymphocytes % 34 % Monocytes % 7 % Eosinophils % 4 % Basophils % 1 % Neutrophils # 6.5 (1.3-7.7) k/uL Lymphocytes # 4.3 (1.0-4.8) k/uL Monocytes # 0.8 (0-1.0) k/uL Eosinophils # 0.5 (0-0.7) k/uL Basophils # 0.2 (0-0.2) k/uL PT 11.2 (9.0-12.0) sec INR 1.1 (<1.2) APTT 22.3 (22.0-30.0) sec D-Dimer 1.76 H (<0.60) mg/L FEU Sodium 137 (137-145) mmol/L Potassium 4.5 (3.5-5.1) mmol/L Chloride 101 (98-107) mmol/L Carbon Dioxide 26 (22-30) mmol/L Anion Gap 10 mmol/L BUN 43 H (9-20) mg/dL Creatinine 1.98 H (0.66-1.25) mg/dL Est GFR (CKD-EPI)AfAm 42 (>60 ml/min/1.73 sqM) Est GFR (CKD-EPI)NonAf 37 (>60 ml/min/1.73 sqM) Glucose 111 H (74-99) mg/dL Calcium 9.6 (8.4-10.2) mg/dL Magnesium 2.3 (1.6-2.3) mg/dL Total Bilirubin 0.7 (0.2-1.3) mg/dL AST 32 (17-59) U/L ALT 27 (4-49) U/L Alkaline Phosphatase 123 (38-126) U/L Troponin I (0.000-0.034) ng/mL Total Protein 8.8 H (6.3-8.2) g/dL Albumin 4.5 (3.5-5.0) g/dL 08/09/20 Range/Units 19:59 WBC (3.8-10.6) k/uL RBC (4.30-5.90) m/uL Hgb (13.0-17.5) gm/dL Hct (39.0-53.0) % MCV (80.0-100.0) fL MCH (25.0-35.0) pg MCHC (31.0-37.0) g/dL RDW (11.5-15.5) % Plt Count (150-450) k/uL MPV Neutrophils % % Lymphocytes % % Monocytes % % Eosinophils % % Basophils % % Neutrophils # (1.3-7.7) k/uL Lymphocytes # (1.0-4.8) k/uL Monocytes # (0-1.0) k/uL Eosinophils # (0-0.7) k/uL Basophils # (0-0.2) k/uL PT (9.0-12.0) sec INR (<1.2) APTT (22.0-30.0) sec D-Dimer (<0.60) mg/L FEU Sodium (137-145) mmol/L Potassium (3.5-5.1) mmol/L Chloride (98-107) mmol/L Carbon Dioxide (22-30) mmol/L Anion Gap mmol/L BUN (9-20) mg/dL Creatinine (0.66-1.25) mg/dL Est GFR (CKD-EPI)AfAm (>60 ml/min/1.73 sqM) Est GFR (CKD-EPI)NonAf (>60 ml/min/1.73 sqM) Glucose (74-99) mg/dL Calcium (8.4-10.2) mg/dL Magnesium (1.6-2.3) mg/dL Total Bilirubin (0.2-1.3) mg/dL AST (17-59) U/L ALT (4-49) U/L Alkaline Phosphatase (38-126) U/L Troponin I 0.076 H* (0.000-0.034) ng/mL Total Protein (6.3-8.2) g/dL Albumin (3.5-5.0) g/dL Disposition <Chuck Riddle - Last Filed: 08/09/20 21:19> Is patient prescribed a controlled substance at d/c from ED?: No Time of Disposition: 22:49 Decision Date: 08/09/20 Decision Time: 22:49 <Marcelo Adrian - Last Filed: 08/09/20 22:50> Clinical Impression: History of heart artery stent, Leg pain, Acute non-ST elevation myocardial infarction (NSTEMI), Chest pain Disposition: ADMITTED IP TO THIS HOSP Condition: Fair Referrals: [facility],Clinic [Primary Care Provider] - 1-2 days
[2020-08-09 20:05] LABS: Basophils # (A) 0.2 k/uL (0-0.2); Basophils % (A) 1 %; Eosinophils # (A) 0.5 k/uL (0-0.7); Eosinophils % (A) 4 %; HCT 44.3 % (39.0-53.0); HGB 15.5 gm/dL (13.0-17.5); Lymphocytes # (A) 4.3 k/uL (1.0-4.8); Lymphocytes % (A) 34 %; MCH 32.4 pg (25.0-35.0); MCV 92.7 fL (80.0-100.0); Mean Platelet Volume 7.9; Monocytes # (A) 0.8 k/uL (0-1.0); Monocytes % (A) 7 %; Neutrophils # (A) 6.5 k/uL (1.3-7.7); Neutrophils % (A) 52 %; Platelet Count 236 k/uL (150-450); RBC 4.78 m/uL (4.30-5.90); RDW 12.6 % (11.5-15.5); WBC 12.4 k/uL (3.8-10.6)
--- NOTE | 2020-08-09 20:15 | XR ---
EXAMINATION TYPE: XR chest 2V DATE OF EXAM: 08/09/2020 COMPARISON: 03/25/2019 HISTORY: Chest pain TECHNIQUE: FINDINGS: Heart and mediastinum are normal. Lungs are clear. Diaphragm is normal. There are chest erasto ds. Bony thorax is intact. IMPRESSION: Normal chest. No adverse change.
[2020-08-09 20:19] LABS: Albumin 4.5 g/dL (3.5-5.0); Calcium 9.6 mg/dL (8.4-10.2); INR 1.1 (<1.2); Magnesium 2.3 mg/dL (1.6-2.3); Partial Thromboplastin Time 22.3 sec (22.0-30.0); Potassium 4.5 mmol/L (3.5-5.1); Prothrombin Time 11.2 sec (9.0-12.0); Total Bilirubin 0.7 mg/dL (0.2-1.3); Total Protein 8.8 g/dL (6.3-8.2)
[2020-08-09 20:27] LABS: D-Dimer 1.76 mg/L FEU (<0.60)
[2020-08-09] MEDS ORDERED: methylPREDNISolone SOD SUCCI 125 MG/2 ML VIAL IV STA (20:50)
[2020-08-09] MEDS ORDERED: diphenhydrAMINE 50 MG/ML 1 ML VIAL IVP STA (20:50)
[2020-08-09] MEDS ORDERED: FAMOTIDINE 20 MG/2 ML VIAL IV STA (20:50)
[2020-08-09] MEDS ORDERED: SODIUM CHLORIDE 0.9% 1,000 ML IV ONE (20:58)
[2020-08-09] MEDS ORDERED: HEPARIN SODIUM,PORCINE 5,000 UNIT/ML 1 ML VIAL IV ONE (20:58)
[2020-08-09] MEDS ORDERED: HEPARIN SOD,PORK IN 0.45% NACL 25,000 UNIT in 0.45% NACL 1 250ML.BAG IV SCH (21:00)
--- NOTE | 2020-08-09 22:05 | CT ---
EXAMINATION TYPE: CT chest angio for PE DATE OF EXAM: 08/09/2020 COMPARISON: None HISTORY: Chest pain and elevated d-dimer. CT DLP: 463 mGycm Automated exposure control for dose reduction was used. CONTRAST: Performed with IV Contrast, patient injected with 77ml mL of Isovue 370. There are 3-D post processed images. There is mild emphysematous change at the lung apices. The lungs are clear of consolidation. There is minimal subsegmental atelectasis at the posterior lung bases. There is no pleural effusion. There is no pericardial effusion. Heart size is normal. There are no hilar masses. There is no mediastinal ad enopathy. Thoracic aorta is intact. There is no aneurysm or dissection. The ascending aorta measures 3.5 cm. Thoracic vertebra have normal spacing and alignment. Posterior elements are intact. There is no compr ession fracture. The ribs appear intact. There is normal contrast opacification of the pulmonary arteries. There are no filling defects. IMPRESSION: Negative exam. No evidence of pulmonary embolism. No suspicious pulmonary mass.
[2020-08-09] MEDS ORDERED: NITROGLYCERIN SL TABS 0.4 MG TAB SUBLINGUAL PRN (22:52)
[2020-08-09] MEDS: SACUBITRIL/VALSARTAN 24 MG-26 MG TABLET PO SCH (23:05)
[2020-08-09] MEDS: SODIUM CHLORIDE 0.9% 1,000 ML IV SCH (23:35)
[2020-08-10] MEDS: NITROGLYCERIN OINT 1 INCH/GM PACKET TOPICAL SCH ×2 (01:08→20:15)
[2020-08-10 04:42] LABS: Cholesterol 164 mg/dL (<200); HDL Cholesterol 29 mg/dL (40-60); LDL Cholesterol,Calculated 117 mg/dL (0-99); Triglycerides 90 mg/dL (<150)
[2020-08-10] MEDS: carvediloL 6.25 MG TAB PO SCH ×2 (06:39→16:44)
[2020-08-10] MEDS ORDERED: FUROSEMIDE 20 MG TAB PO PRN (09:00)
[2020-08-10] MEDS ORDERED: ASPIRIN 325 MG TAB PO SCH (09:00)
[2020-08-10] MEDS ORDERED: NON FORMULARY DRUG (Aspirin Ec 81 MG Tablet.Dr) PO SCH (09:00)
[2020-08-10] MEDS ORDERED: FAMOTIDINE 20 MG TAB PO SCH (09:00)
[2020-08-10] MEDS: FUROSEMIDE 20 MG TAB PO SCH (09:31)
[2020-08-10] MEDS: PREGABALIN 75 MG CAP PO SCH ×3 (09:31→21:06)
[2020-08-10] MEDS: ASPIRIN 81 MG PO SCH (09:31)
[2020-08-10] MEDS: TICAGRELOR 90 MG TAB PO SCH ×2 (09:31→21:07)
[2020-08-10] MEDS: SPIRONOLACTONE 25 MG TAB PO SCH (09:31)
[2020-08-10] MEDS: clonazePAM 0.5 MG TAB PO PRN ×2 (09:31→21:06)
--- NOTE | 2020-08-10 11:06 | P.CRDCN ---
History of Present Illness History of present illness: HISTORY OF PRESENTING ILLNESS This is a pleasant 54-year-old male past medical history significant for coronary artery disease status post PCI in the setting of a myocardial infarction, ischemic cardiomyopathy, hypertension, dyslipidemia, COPD, daily alcohol intake and chronic nicotine dependence. His myocardial infarction occurred approximately one month ago in [place], exact details unavailable. The patient states he had required CPR, defibrillation and was discharged home on a life vest however has not been wearing due to comfort. 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 Oquendo on August 12. We have been asked to see in consultation for chest pain. He states the real reason for coming to the hospital was he had an acute onset of a sharp pain in the right temporal region and then discomfort in the left lower extremity. He w as concerned about possibly having a stroke or some sort of an aneurysm with the acute onset of his headache. He states since his event in [place] he has been having ongoing sternal chest discomfort that is worse with breathing or certain movements which has been attributed to CPR. He denies exertional chest pain or shortness of breath. DIAGNOSTICS EKG reveals sinus mechanism, Q waves in precordial leads, T wave abnormalities noted anteriorly that are biphasic, there is no old EKG for comparison. Telemetry tracings indicate this mechanism with no acute arrhythmia. Chest xray negative for an acute cardiopulmonary process. Laboratory reviewed, WBC 12.4, hemoglobin 15.5, platelets 236, d-dimer 1.76, sodium 137, potassium 4.5, creatinine 1.98, magnesium 2.3, troponin 0.076, 0.0 78, 0.0 68, LDL 117 and HDL 29. Current cardiac medications include Lasix 20 mg daily, aspirin 81 mg daily, max rvastatin 80 mg daily, Aldactone 25 mg daily, Brilinta 90 mg twice a day, Coreg 6.25 mg twice a day and entresto 24/26 mg BID. REVIEW OF SYSTEMS At the time of my exam: CONSTITUTIONAL: Denies fever or chills. CARDIOVASCULAR: Denies chest pain, shortness of breath, orthopnea, PND or palpitations. RESPIRATORY: Denies cough. GASTROINTESTINAL: Denies abdominal pain, diarrhea, constipation, nausea or vomiting. MUSCULOSKELETAL: Denies myalgias. NEUROLOGIC: Denies numbness, tingling, headacbe or weakness. ENDOCRINE: Denies fatigue, weight change, polydipsia or polyurina. GENITOURINARY: Denies burning, hematuria or urgency with micturation. HEMATOLOGIC: Denies history of anemia or bleeding. PHYSICAL EXAMINATION Blood pressure 101/65 heart rate 68 afebrile and maintaining oxygen saturation on room air. CONSTITUTIONAL: No apparent distress. HEENT: Head is normocephalic. Pupils are equal, round. Sclerae anicteric. Mucous membranes of the mouth are moist. No JVD. No carotid bruit. CHEST EXAMINATION: Some scattered rhonchi, no rales or wheezes. Reproducible chest wall tenderness is noted on palpation and with deep breathing. HEART EXAMINATION: Regular rate and rhythm. S1, S2 heard. Systolic ejection murmur at the base, no gallops or rub. ABDOMEN: Soft, nontender. Positive bowel sounds. EXTREMITIES: 2+ peripheral pulses, no lower extremity edema and no calf tenderness. NEUROLOGIC EXAMINATION: Patient is awake, alert and oriented x3. ASSESSMENT Chest pain, atypical for angina Leukocytosis Acute on chronic kidney disease Troponin elevation secondary to CK D Headache Coronary artery disease status post PCI, exact details unavailable History of myocardial infarction June 2019 Ischemic cardiomyopathy Chronic systolic heart failure Hypertension Dyslipidemia Daily alcohol intake Chronic nicotine dependence PLAN Chest pain is atypical for angina, musculoskeletal in nature related to recent CPR and patient verbalize sternal fracture. Request records from previous hospitalization in [place] for review of cardiac catheterization and hospital course. Echocardiogram has been obtained and will be reviewed. No plans for cardiac catheterization or stress testing at this point. Continue dual antiplatelet therapy. Discontinue Nitropaste. Continue entresto, beta blockers, statin and diuretics as previously ordered. Follow up with Dr. Oquendo as previously planned on August 12. Thank you kindly for this consultation. Nurse Practitioner note has been reviewed, I agree with a documented findings and plan of care. Patient was seen and examined. Past Medical History Past Medical History: COPD, GERD/Reflux, Hyperlipidemia, Hypertension, Myocardial Infarction ([place]), Osteoarthritis (OA), Pneumonia, Thyroid Disorder Additional Past Medical History / Comment(s): DDD back, spinal cord impingment, herniated disc spine with spurs, neuropathy, rediculopathy, scoliosis, carpel tunner Last Myocardial Infarction Date:: 07/09/20 History of Any Multi-Drug Resistant Organisms: None Reported Past Surgical History: No Surgical Hx Reported, Heart Catheterization With Stent Past Anesthesia/Blood Transfusion Reactions: No Reported Reaction, Motion Sickness Date of Last Stent Placement:: 07/12/20 Past Psychological History: Anxiety Smoking Status: Former smoker Past Alcohol Use History: Daily Past Drug Use History: None Reported - Past Family History Father Family Medical History: Coronary Artery Disease (CAD) Additional Family Medical History / Comment(s): CABG Mother Family Medical History: Coronary Artery Disease (CAD) Additional Family Medical History / Comment(s): CABG Medications and Allergies Home Medications Medication Instructions Recorded Confirmed Type Famotidine [Pepcid] 20 mg PO BID 02/04/19 08/09/20 History Pregabalin [Lyrica] 150 mg PO TID 02/04/19 08/09/20 History Aspirin EC [Ecotrin Low Dose] 81 mg PO DAILY 08/09/20 08/09/20 History Atorvastatin [Lipitor] 80 mg PO HS 08/09/20 08/09/20 History Carvedilol [Coreg] 6.25 mg PO BID 08/09/20 08/09/20 History Furosemide [Lasix] 20 mg PO DAILY 08/09/20 08/09/20 History Furosemide [Lasix] 20 mg PO DAILY PRN 08/09/20 08/09/20 History Sacubitril/Valsartan [Entresto 24 1 tab PO Q12H 08/09/20 08/09/20 History mg-26 mg Tablet] Spironolactone [Aldactone] 25 mg PO DAILY 08/09/20 08/09/20 History Ticagrelor [Brilinta] 90 mg PO BID 08/09/20 08/09/20 History clonazePAM [KlonoPIN] 0.5 mg PO BID PRN 08/09/20 08/09/20 History Allergies Allergy/AdvReac Type Severity Reaction Status Date / Time acetaminophen [From [place]] Allergy Rash/Hives Verified 08/09/20 21:40 ciprofloxacin [From Cipro] Allergy Unknown Verified 08/09/20 21:40 hydrocodone [From [place]] Allergy Rash/Hives Verified 08/09/20 21:40 Iodinated Contrast Media AdvReac "PASSED Verified 08/09/20 21:40 [Iodinated Contrast Media - OUT FOR 3 Oral and] DAYS" Physical Exam Vitals: Vital Signs Temp Pulse Pulse Resp BP BP Pulse Ox 08/10/20 03:24 98.4 F 66 15 96/57 96 08/10/20 02:00 66 15 08/10/20 00:08 97.0 F L 62 17 103/59 97 08/09/20 23:36 65 18 104/67 98 08/09/20 22:00 72 18 105/71 100 08/09/20 21:10 61 20 103/64 100 08/09/20 19:25 98.2 F 68 18 87/56 99 Intake and Output 08/09/20 08/10/20 08/10/20 22:59 06:59 14:59 Intake Total 56.812 Output Total 625 Balance -568.188 Intake: Intake, IV Titration 56.812 Amount Heparin Sod,Pork in 0.45% 56.812 NaCl 25,000 unit In 0.45 % NaCl 1 250ml.bag @ 10.9 UNITS/KG/HR 9.938 mls/hr IV .Q24H [facility] Rx#: [id number] Output: Urine 625 Other: # Voids 0 # Bowel Movements 0 Weight 91.172 kg 91.172 kg Results 08/09/20 19:59 08/09/20 19:59 Cardiac Enzymes 08/09/20 08/09/20 08/09/20 Range/Units 19:59 19:59 23:14 AST 32 (17-59) U/L Troponin I 0.076 H* 0.078 H* (0.000-0.034) ng/mL 08/10/20 Range/Units 02:07 AST (17-59) U/L Troponin I 0.068 H* (0.000-0.034) ng/mL Coagulation 08/09/20 08/10/20 Range/Units 19:59 02:07 PT 11.2 (9.0-12.0) sec APTT 22.3 72.0 H (22.0-30.0) sec Lipids 08/10/20 Range/Units 02:07 Triglycerides 90 (<150) mg/dL Cholesterol 164 (<200) mg/dL HDL Cholesterol 29 L (40-60) mg/dL CBC 08/09/20 Range/Units 19:59 WBC 12.4 H (3.8-10.6) k/uL RBC 4.78 (4.30-5.90) m/uL Hgb 15.5 (13.0-17.5) gm/dL Hct 44.3 (39.0-53.0) % Plt Count 236 (150-450) k/uL Comprehensive Metabolic Panel 08/09/20 Range/Units 19:59 Sodium 137 (137-145) mmol/L Potassium 4.5 (3.5-5.1) mmol/L Chloride 101 (98-107) mmol/L Carbon Dioxide 26 (22-30) mmol/L BUN 43 H (9-20) mg/dL Creatinine 1.98 H (0.66-1.25) mg/dL Glucose 111 H (74-99) mg/dL Calcium 9.6 (8.4-10.2) mg/dL AST 32 (17-59) U/L ALT 27 (4-49) U/L Alkaline Phosphatase 123 (38-126) U/L Total Protein 8.8 H (6.3-8.2) g/dL Albumin 4.5 (3.5-5.0) g/dL Current Medications Generic Name Dose Route Start Last Admin Trade Name Freq PRN Reason Stop Dose Admin Aspirin 325 mg 08/10/20 09:00 Aspirin 325 Mg Tab PO DAILY [facility] Atorvastatin Calcium 80 mg 08/10/20 21:00 Atorvastatin 80 Mg Tab PO HS [facility] Carvedilol 6.25 mg 08/10/20 07:30 08/10/20 06:39 Carvedilol 6.25 Mg Tab PO 6.25 mg BID-W/MEALS MICAELA Administration Clonazepam 0.5 mg 08/09/20 23:30 Clonazepam 0.5 Mg Tab PO BID PRN Anxiety Famotidine 20 mg 08/10/20 09:00 Famotidine 20 Mg Tab PO BID MICAELA Furosemide 20 mg 08/10/20 09:00 Furosemide 20 Mg Tab PO DAILY PRN Edema Furosemide 20 mg 08/10/20 09:00 Furosemide 20 Mg Tab PO DAILY [facility] Heparin Sodium/Sodium Chloride 250 mls @ 9.938 mls/hr 08/09/20 21:00 08/10/20 03:00 25,000 unit/ Sodium Chloride IV 8.9 units/kg/hr .Q24H MICAELA 8.114 mls/hr Titration Protocol 10.9 UNITS/KG/HR Sodium Chloride 1,000 mls @ 80 mls/hr 08/09/20 23:30 08/09/20 23:35 Saline 0.9% IV 80 mls/hr .[id number] MICAELA Administration Nitroglycerin 0.4 mg 08/09/20 22:52 Nitroglycerin Sl Tabs 0.4 Mg Tab SUBLINGUAL Q5M PRN Chest Pain Nitroglycerin 1 inch 08/10/20 00:00 08/10/20 01:08 Nitroglycerin Oint 1 Inch/Gm Packet TOPICAL 1 inch Q6HR MICAELA Administration Pregabalin 150 mg 08/10/20 09:00 Pregabalin 75 Mg Cap PO TID MICAELA Sacubitril/Valsartan 1 each 08/09/20 23:00 08/09/20 23:05 Sacubitril/Valsartan 24 Mg-26 Mg Tablet PO 1 each Q12H MICAELA Administration Spironolactone 25 mg 08/10/20 09:00 Spironolactone 25 Mg Tab PO DAILY MICAELA Ticagrelor 90 mg 08/10/20 09:00 Ticagrelor 90 Mg Tab PO BID [facility] Intake and Output 08/09/20 08/10/20 08/10/20 22:59 06:59 14:59 Intake Total 56.812 Output Total 625 Balance -568.188 Intake: Intake, IV Titration 56.812 Amount Heparin Sod,Pork in 0.45% 56.812 NaCl 25,000 unit In 0.45 % NaCl 1 250ml.bag @ 10.9 UNITS/KG/HR 9.938 mls/hr IV .Q24H [facility] Rx#: [id number] Output: Urine 625 Other: # Voids 0 # Bowel Movements 0 Weight 91.172 kg 91.172 kg 08/09/20 19:59 08/09/20 19:59
--- NOTE | 2020-08-10 12:00 | ECHOF ---
Referral Reason:cp MEASUREMENTS -------- HEIGHT: 157.5 cm WEIGHT: 91.2 kg BP: 96/57 IVSd: 1.0 cm (0.6 - 1.1) LVIDd: 5.3 cm (3.9 - 5.3) LVPWd: 1.3 cm (0.6 - 1.1) IVSs: 1.2 cm LVIDs: 4.1 cm LVPWs: 1.8 cm IVSd: 1.3 cm (0.6 - 1.1) LVIDd: 7.0 cm (3.9 - 5.3) LVPWd: 1.4 cm (0.6 - 1.1) IVSs: 0.9 cm LVIDs: 2.4 cm LVPWs: 1.7 cm EDV(Teich): 254 ml ESV(Teich): 21 ml EF(Teich): 92 % %FS: 65 % SV(Teich): 233 ml Ao Diam: 3.5 cm (2.0 - 3.7) AV Cusp: 2.0 cm (1.5 - 2.6) MV EXCURSION: 23.601 mm (> 18.000) MV EF SLOPE: 120 mm/s (70 - 150) EPSS: 1.7 cm MV E Matthew: 0.39 m/s MV DecT: 180 ms MV A Matthew: 0.81 m/s MV E/A Ratio: 0.47 FINDINGS -------- Sinus rhythm. This was a techncally difficult study with suboptimal views, , Lumason utilized for enhancement of im ages. The left ventricle is severely dilated. There is severe global hypokinesis of LV . Overall left v entricular systolic function is severely impaired with, an EF < 20%. Possible lv thrombus The right ventricle is normal in size. The left atrial size is normal. The right atrial size is normal. The aortic valve is trileaflet, and appears structurally normal. No aortic stenosis or regurgitation. Mild mitral regurgitation is present. Mild tricuspid regurgitation present. Right ventricular systolic pressure is normal at < 35 mmHg. Trace/mild (physiologic) pulmonic regurgitation. Possible Thrombus in LV [place] The aortic root size is normal. There is no pericardial effusion. CONCLUSIONS -------- 1. This was a techncally difficult study with suboptimal views, , Lumason utilized for enhancement of images. 2. The left ventricle is severely dilated. 3. There is severe global hypokinesis of LV . 4. Overall left ventricular systolic function is severely impaired with, an EF < 20%. 5. Possible lv thrombus 6. The right ventricle is normal in size. 7. The left atrial size is normal. 8. The right atrial size is normal. 9. Mild mitral regurgitation is present. 10. Mild tricuspid regurgitation present. 11. Trace/mild (physiologic) pulmonic regurgitation. 12. Possible Thrombus in LV [place] 13. There is no pericardial effusion. BARBERING INSTRUCTOR: Carolyn Gracia RDCS
[2020-08-10] MEDS: SACUBITRIL/VALSARTAN 24 MG-26 MG TABLET PO SCH ×2 (12:27→22:13)
[2020-08-10] MEDS: SODIUM CHLORIDE 0.9% 1,000 ML IV SCH (13:37)
[2020-08-10] MEDS ORDERED: traMADol 50 MG TAB PO PRN (16:50)
--- NOTE | 2020-08-10 17:49 | P.HPIM ---
History of Present Illness H&P Date: 08/10/20 Chief Complaint: Chest pain River Garcia, is a 54-year-old male who presented to [facility] emergency room with a chief complaint of chest pain he was also c omplaining of pain in the left lower extremity. He was evaluated in the emergency room vital exam on presentation to emergency room revealed a temperature of 98.2, respiration 18 , blood pressure 87/56 pulse ox 99% on room air, laboratory data revealed a white blood count of 12.[address] atelet count 236 d-dimer 1.76 BUN 43 creatinine 1.98 troponin level 0.076 coronavirus PCR was negative chest x-ray done in the emergency room was normal chest CT angiogram was negative for pulmonary embolism EKG revealed normal sinus rhythm with anterolateral infarct age undetermined, patient was started on IV heparin and was admitted to telemetry floor cardiology consultation was requested. Patient stated that about 4 weeks ago he had a heart attack while in [place] he was admitted to the hospital and underwent angioplasty and stent placement his ejection fraction was low , and he was given a life vest to wear however he was not wearing it, during that episode patient had a cardiac arrest and had CPR that resulted in rib fractures and pain. His past medical history is significant for history of degenerative disc disease with herniated disks and chronic pain history of scoliosis, history of hypertension, history of hyperlipidemia, history of gastroesophageal reflux disease and history of COPD. Past Medical History Past Medical History: COPD, GERD/Reflux, Hyperlipidemia, Hypertension, Myocardial Infarction ([place]), Osteoarthritis (OA), Pneumonia, Thyroid Disorder Additional Past Medical History / Comment(s): DDD back, spinal cord impingment, herniated disc spine with spurs, neuropathy, rediculopathy, scoliosis, carpel tunner Last Myocardial Infarction Date:: 07/09/20 History of Any Multi-Drug Resistant Organisms: None Reported Past Surgical History: No Surgical Hx Reported, Heart Catheterization With Stent Past Anesthesia/Blood Transfusion Reactions: No Reported Reaction, Motion Sickness Date of Last Stent Placement:: 07/12/20 Past Psychological History: Anxiety Smoking Status: Former smoker Past Alcohol Use History: Daily Past Drug Use History: None Reported - Past Family History Father Family Medical History: Coronary Artery Disease (CAD) Additional Family Medical History / Comment(s): CABG Mother Family Medical History: Coronary Artery Disease (CAD) Additional Family Medical History / Comment(s): CABG Medications and Allergies Home Medications Medication Instructions Recorded Confirmed Type Famotidine [Pepcid] 20 mg PO BID 02/04/19 08/09/20 History Pregabalin [Lyrica] 150 mg PO TID 02/04/19 08/09/20 History Aspirin EC [Ecotrin Low Dose] 81 mg PO DAILY 08/09/20 08/09/20 History Atorvastatin [Lipitor] 80 mg PO HS 08/09/20 08/09/20 History Carvedilol [Coreg] 6.25 mg PO BID 08/09/20 08/09/20 History Furosemide [Lasix] 20 mg PO DAILY 08/09/20 08/09/20 History Furosemide [Lasix] 20 mg PO DAILY PRN 08/09/20 08/09/20 History Sacubitril/Valsartan [Entresto 24 1 tab PO Q12H 08/09/20 08/09/20 History mg-26 mg Tablet] Spironolactone [Aldactone] 25 mg PO DAILY 08/09/20 08/09/20 History Ticagrelor [Brilinta] 90 mg PO BID 08/09/20 08/09/20 History clonazePAM [KlonoPIN] 0.5 mg PO BID PRN 08/09/20 08/09/20 History Allergies Allergy/AdvReac Type Severity Reaction Status Date / Time acetaminophen [From [place]] Allergy Rash/Hives Verified 08/09/20 21:40 ciprofloxacin [From Cipro] Allergy Unknown Verified 08/09/20 21:40 hydrocodone [From [place]] Allergy Rash/Hives Verified 08/09/20 21:40 Iodinated Contrast Media AdvReac "PASSED Verified 08/09/20 21:40 [Iodinated Contrast Media - OUT FOR 3 Oral and] DAYS" Physical Exam Vitals: Vital Signs Temp Pulse Pulse Resp BP BP Pulse Ox 08/10/20 14:00 64 18 08/10/20 12:00 64 18 143/86 95 08/10/20 08:00 98.0 F 64 18 101/65 98 08/10/20 03:24 98.4 F 66 15 96/57 96 08/10/20 02:00 66 15 08/10/20 00:08 97.0 F L 62 17 103/59 97 08/09/20 23:36 65 18 104/67 98 08/09/20 22:00 72 18 105/71 100 08/09/20 21:10 61 20 103/64 100 08/09/20 19:25 98.2 F 68 18 87/56 99 Intake and Output 08/10/20 08/10/20 08/10/20 06:59 14:59 22:59 Intake Total 56.812 240 Output Total 625 400 Balance -568.188 -160 Intake: Intake, IV Titration 56.812 Amount Heparin Sod,Pork in 0.45% 56.812 NaCl 25,000 unit In 0.45 % NaCl 1 250ml.bag @ 10.9 UNITS/KG/HR 9.938 mls/hr IV .Q24H [facility] Rx#: [id number] Oral 240 Output: Urine 625 400 Other: # Voids 0 # Bowel Movements 0 Weight 91.172 kg In general patient is alert and oriented 3 in no apparent distress HEENT head normocephalic and atraumatic Neck is supple no JVD no goiter no lymphadenopathy Chest exam reveals a scattered crackles bilaterally no wheezing Cardiac exam reveals regular heart sounds S1 and S2 no gallops no murmurs Abdomen is soft nontender no organomegaly with normal bowel sounds Extremity exam reveals no edema no cyanosis or clubbing Neurological examination reveals no gross focal deficit Results CBC & Chem 7: 08/09/20 19:59 08/09/20 19:59 Labs: Abnormal Lab Results - Last 24 Hours (Table) 08/09/20 08/09/20 08/09/20 Range/Units 19:59 19:59 19:59 WBC 12.4 H (3.8-10.6) k/uL APTT (22.0-30.0) sec D-Dimer 1.76 H (<0.60) mg/L FEU BUN 43 H (9-20) mg/dL Creatinine 1.98 H (0.66-1.25) mg/dL Glucose 111 H (74-99) mg/dL Troponin I (0.000-0.034) ng/mL Total Protein 8.8 H (6.3-8.2) g/dL LDL Cholesterol, Calc (0-99) mg/dL HDL Cholesterol (40-60) mg/dL 08/09/20 08/09/20 08/10/20 Range/Units 19:59 23:14 02:07 WBC (3.8-10.6) k/uL APTT (22.0-30.0) sec D-Dimer (<0.60) mg/L FEU BUN (9-20) mg/dL Creatinine (0.66-1.25) mg/dL Glucose (74-99) mg/dL Troponin I 0.076 H* 0.078 H* 0.068 H* (0.000-0.034) ng/mL Total Protein (6.3-8.2) g/dL LDL Cholesterol, Calc (0-99) mg/dL HDL Cholesterol (40-60) mg/dL 08/10/20 08/10/20 08/10/20 Range/Units 02:07 02:07 08:35 WBC (3.8-10.6) k/uL APTT 72.0 H 46.6 H (22.0-30.0) sec D-Dimer (<0.60) mg/L FEU BUN (9-20) mg/dL Creatinine (0.66-1.25) mg/dL Glucose (74-99) mg/dL Troponin I (0.000-0.034) ng/mL Total Protein (6.3-8.2) g/dL LDL Cholesterol, Calc 117 H (0-99) mg/dL HDL Cholesterol 29 L (40-60) mg/dL Thrombosis Risk Factor Assmnt - Choose All That Apply Any of the Below Risk Factors Present?: Yes Each Factor Represents 1 point: Abnormal pulmonary function (COPD), Acute [place], Age 41-60 years, Obesity (BMI >25) Other Risk Factors: Yes Each Risk Factor Represents 2 Points: Arthroscopic surgery Other congenital or acquired thrombophilia - If yes, enter type in comment: No Thrombosis Risk Factor Assessment Total Risk Factor Score: 6 Thrombosis Risk Factor Assessment Level: High Risk Assessment and Plan Plan: 1. Episode of chest pain with mild elevation in troponin level patient was started on IV heparin and admitted to telemetry floor cardiology consultation was requested 2. Elevated d-dimer on presentation, CT angiogram of the chest was negative for pulmonary embolism 3. Recent myocardial infarction with angioplasty and stent placement 4. Cardiomyopathy with decreased ejection fraction to 20%, patient was started on Entresto, and was given a life vest in [place] 5. Underlying history of hypertension Underlying history of COPD Underlying history of hyperlipidemia Underlying history of gastroesophageal reflux disease Underlying history of degenerative disc disease with chronic pain At this time patient is admitted to telemetry floor Cardiology consultation was requested awaiting input Home medications reviewed and reordered Patient is requesting pain medications he states he is ALLERGIC to hydrocodone and tramadol Will give morphine 2 mg IV every 6 hours when necessary Will follow closely
[2020-08-10] MEDS: MORPHINE SULFATE 2 MG/ML SYRINGE IVP PRN (18:01)
[2020-08-10] MEDS ORDERED: ATORVASTATIN 80 MG TAB PO SCH (21:00)
[2020-08-10 23:46] VITALS: RESP 16
[2020-08-11] MEDS: MORPHINE SULFATE 2 MG/ML SYRINGE IVP PRN ×2 (00:50→09:04)
[2020-08-11] MEDS: carvediloL 6.25 MG TAB PO SCH (06:58)
[2020-08-11] MEDS: SODIUM CHLORIDE 0.9% 1,000 ML IV SCH (06:59)
[2020-08-11 07:52] LABS: Basophils % (A) 0 %; Eosinophils % (A) 0 %; HCT 38.9 % (39.0-53.0); HGB 13.1 gm/dL (13.0-17.5); Lymphocytes # (A) 3.4 k/uL (1.0-4.8); Lymphocytes % (A) 20 %; MCH 32.1 pg (25.0-35.0); MCHC 33.7 g/dL (31.0-37.0); MCV 95.1 fL (80.0-100.0); Mean Platelet Volume 8.3; Monocytes # (A) 0.8 k/uL (0-1.0); Monocytes % (A) 5 %; Neutrophils # (A) 12.8 k/uL (1.3-7.7); Neutrophils % (A) 74 %; Platelet Count 198 k/uL (150-450); RBC 4.09 m/uL (4.30-5.90); RDW 12.8 % (11.5-15.5); WBC 17.2 k/uL (3.8-10.6)
[2020-08-11 08:37] LABS: Calcium 9.2 mg/dL (8.4-10.2); Potassium 4.4 mmol/L (3.5-5.1)
[2020-08-11 08:51] VITALS: TEMP 98.7
[2020-08-11] MEDS: PREGABALIN 75 MG CAP PO SCH (08:51)
[2020-08-11] MEDS: SPIRONOLACTONE 25 MG TAB PO SCH (08:52)
[2020-08-11] MEDS: ASPIRIN 81 MG PO SCH (08:52)
[2020-08-11] MEDS: TICAGRELOR 90 MG TAB PO SCH (08:52)
[2020-08-11] MEDS: FUROSEMIDE 20 MG TAB PO SCH (08:52)
[2020-08-11] MEDS ORDERED: ENOXAPARIN 40 MG/0.4 ML SYRINGE SQ SCH (09:00)
[2020-08-11] MEDS ORDERED: FAMOTIDINE 20 MG TAB PO SCH (09:00)
[2020-08-11] MEDS: SACUBITRIL/VALSARTAN 24 MG-26 MG TABLET PO SCH (12:14)
[2020-08-11 12:57] VITALS: BP 98/53; PULSE 60
[2020-08-11 13:24] LABS: Appearance,Urine Clear (Clear); Bilirubin,Urine Negative (Negative); Blood,Urine Negative (Negative); Color,Urine Colorless; Glucose,Urine (UA) Negative (Negative); Ketones,Urine Negative (Negative); Leukocyte Esterase,Urine Negative (Negative); Nitrite,Urine Negative (Negative); Protein,Urine Negative (Negative); Specific Gravity,Urine 1.006 (1.001-1.035); Urobilinogen,Urine <2.0 mg/dL (<2.0)
[2020-08-11 13:35] LABS: Basophils # (A) 0.1 k/uL (0-0.2); Basophils % (A) 0 %; Eosinophils # (A) 0.1 k/uL (0-0.7); Eosinophils % (A) 0 %; HCT 43.5 % (39.0-53.0); HGB 14.4 gm/dL (13.0-17.5); Lymphocytes # (A) 4.1 k/uL (1.0-4.8); Lymphocytes % (A) 25 %; MCH 31.6 pg (25.0-35.0); MCV 95.6 fL (80.0-100.0); Mean Platelet Volume 8.4; Monocytes % (A) 6 %; Neutrophils # (A) 11.3 k/uL (1.3-7.7); Neutrophils % (A) 67 %; Platelet Count 220 k/uL (150-450); RBC 4.55 m/uL (4.30-5.90); RDW 13.3 % (11.5-15.5); WBC 16.7 k/uL (3.8-10.6)
[2020-08-11] MEDS: clonazePAM 0.5 MG TAB PO PRN (13:40)
--- NOTE | 2020-08-11 14:10 | XR ---
EXAMINATION TYPE: XR chest 1V portable DATE OF EXAM: 08/11/2020 COMPARISON: Chest x-ray and CT 08/09/2020 HISTORY: Elevated white blood cells, abnormal chest CT, chest pain TECHNIQUE: Single frontal view of the chest is obtained. FINDINGS: There is no focal air space opacity, pleural effusion, or pneumothorax seen. The cardiac silhouette size is within normal limits. The osseous structures are shown on CT scan with multiple anterior rib fractures including the right second, third, fourth and fifth ribs. The left anterior se cond, third, fourth and fifth ribs, possibly sixth rib as well as possibly the right anterior sixth r ib. There is callus formation consistent with fracture healing. IMPRESSION: No acute cardiopulmonary disease. Anterior rib fractures
--- NOTE | 2020-08-11 14:23 | P.DS ---
Providers Date of admission: 08/09/20 22:54 Expected date of discharge: 08/11/20 Attending physician: Yissel Craig Consults: 08/09/20 22:52 Consult Physician Urgent Consulting Provider: Miguel Angel Cronin Consult Reason/Comments: nstemi Do you want consulting provider notified?: Yes Primary care physician: Terrie Salazar [facility] Course: Discharge diagnosis 1. Episode of chest pain with mild elevation in troponin level patient was started on IV heparin and admitted to telemetry floor cardiology consultation was requested. evaluated by cardiology services chest pain is atypical for angina. Likely multiple musculoskeletal nature related to recent CPR. 2-D echo was completed showing an EF less than 20%. Per cardiology for cardiac catheterization or stress test at this time continue current medication regime and follow up with cardiology services outpatient. 2. Elevated d-dimer on presentation, CT angiogram of the chest was negative for pulmonary embolism 3. Recent myocardial infarction with angioplasty and stent placement 4. Cardiomyopathy with decreased ejection fraction to 20%, patient was started on Entresto, and was given a life vest in [place] 5. Underlying history of hypertension Underlying history of COPD Underlying history of hyperlipidemia Underlying history of gastroesophageal reflux disease Underlying history of degenerative disc disease with chronic pain Leukocytosis. Patient having elevated white blood cell count 16.7. Patient denies any acute complaints does complain that he might have an abscess in his mouth related to the issue. Chest x-ray negative. UA negative. Patient requesting Bactrim but unable to do Bactrim due to interaction with cardiac medications. Will DC on Keflex. Patient advised to follow-up closely with PCP for further management of white blood cell count and any signs of infection Hospital course River Garcia, is a 54-year-old male who presented to [facility] emergency room with a chief complaint of chest pain he was also complaining of pain in the left lower extremity. He was evaluated in the emergency room vital exam on presentation to emergency room revealed a temperature of 98.2, respiration 18 , blood pressure 87/56 pulse ox 99% on room air, laboratory data revealed a white blood count of 12.4 hemoglobin 15.5 platelet count 236 d-dimer 1.76 BUN 43 creatinine 1.98 troponin level 0.076 coronavirus PCR was negative chest x-ray done in the emergency room was normal chest CT angiogram was negative for pulmonary embolism EKG revealed normal sinus rhythm with anterolateral infarct age undetermined, patient was started on IV heparin and was admitted to telemetry floor cardiology consultation was requested. Patient stated that about 4 weeks ago he had a heart attack while in [place] he was admitted to the hospital and underwent angioplasty and stent placement his ejection fraction was low , and he was given a life vest to wear however he was not wearing it, during that episode patient had a cardiac arrest and had CPR that resulted in rib fractures and pain. His past medical history is significant for history of degenerative disc disease with herniated disks and chronic pain history of scoliosis, history of hypertension, history of hyperlipidemia, history of gastroesophageal reflux disease and history of COPD. On 08/11/2020 Patient is alert and oriented 3. Patient was evaluated by cardiology services cleared for discharge. No changes to her medication. Patient has life vest order from [place]. defer to cardiology for further management. Patient having elevated white blood cell count. Patient denies any chest pain or shortness breath. Patient denies nausea vomiting or diarrhea. S he denies any urinary burning or frequency. Patient does complain of tooth pain secondary to possible abscess. Will DC on Keflex and advised patient to follow- up PCP for further management. Patient advised that he will need close follow up with cardiology services Patient Condition at Discharge: Stable Plan - Discharge Summary Discharge Rx Participant: No New Discharge Prescriptions: Continue Famotidine [Pepcid] 20 mg PO BID Pregabalin [Lyrica] 150 mg PO TID clonazePAM [KlonoPIN] 0.5 mg PO BID PRN PRN Reason: Anxiety Ticagrelor [Brilinta] 90 mg PO BID Spironolactone [Aldactone] 25 mg PO DAILY Sacubitril/Valsartan [Entresto 24 mg-26 mg Tablet] 1 tab PO Q12H Furosemide [Lasix] 20 mg PO DAILY PRN PRN Reason: Edema Atorvastatin [Lipitor] 80 mg PO HS Aspirin EC [Ecotrin Low Dose] 81 mg PO DAILY Furosemide [Lasix] 20 mg PO DAILY Carvedilol [Coreg] 6.25 mg PO BID Discharge Medication List Famotidine [Pepcid] 20 mg PO BID 02/04/19 [History] Pregabalin [Lyrica] 150 mg PO TID 02/04/19 [History] Aspirin EC [Ecotrin Low Dose] 81 mg PO DAILY 08/09/20 [History] Atorvastatin [Lipitor] 80 mg PO HS 08/09/20 [History] Carvedilol [Coreg] 6.25 mg PO BID 08/09/20 [History] Furosemide [Lasix] 20 mg PO DAILY 08/09/20 [History] Furosemide [Lasix] 20 mg PO DAILY PRN 08/09/20 [History] Sacubitril/Valsartan [Entresto 24 mg-26 mg Tablet] 1 tab PO Q12H 08/09/20 [History] Spironolactone [Aldactone] 25 mg PO DAILY 08/09/20 [History] Ticagrelor [Brilinta] 90 mg PO BID 08/09/20 [History] clonazePAM [KlonoPIN] 0.5 mg PO BID PRN 08/09/20 [History] Follow up Appointment(s)/Referral(s): Sanchez Oquendo MD [STAFF PHYSICIAN] - 2 Weeks Terrie Salazar MD [Primary Care Provider] - 1-2 Days [facility], [NON-STAFF] -
--- NOTE | 2020-08-11 14:43 | P.PN ---
Subjective HISTORY OF PRESENTING ILLNESS This is a pleasant 54-year-old male past medical history significant for coronary artery disease status post PCI in the setting of a myocardial infarction, ischemic cardiomyopathy, hypertension, dyslipidemia, COPD, daily alcohol intake and chronic nicotine dependence. His myocardial infarction occurred approximately one month ago in [place], exact details unavailable. The patient states he had required CPR, defibrillation and was discharged home on a life vest however has not been wearing due to comfort. He does not follow in the office with a shoe shanker however scheduled to see Dr. Oquendo on August 12. He is seen and examined up ambulating in the room. He has no symptoms of exertional chest pain or shortness of breath. Echocardigram obtained revealed EF less than 20% with possible apical LV thrombus. Blood pressure 98/53 heart rate 60 afebrile and maintaining oxygen saturation on room air. PHYSICAL EXAMINATION CONSTITUTIONAL: No apparent distress. HEENT: Head is normocephalic. Pupils are equal, round. Sclerae anicteric. Mucous membranes of the mouth are moist. No JVD. No carotid bruit. CHEST EXAMINATION: Some scattered rhonchi, no rales or wheezes. Reproducible chest wall tenderness is noted on palpation and with deep breathing. HEART EXAMINATION: Regular rate and rhythm. S1, S2 heard. Systolic ejection murmur at the base, no gallops or rub. EXTREMITIES: 2+ peripheral pulses, no lower extremity edema and no calf tenderness. ASSESSMENT Chest pain, atypical for angina Leukocytosis Acute on chronic kidney disease Troponin elevation secondary to CK D Headache Coronary artery disease status post PCI, exact details unavailable History of myocardial infarction June 2019 Ischemic cardiomyopathy Chronic systolic heart failure Hypertension Dyslipidemia Daily alcohol intake Chronic nicotine dependence PLAN Dr. Mcmullen reviewed the echocardiogram and does not feel there is a thrombus in the LV. Recommend continue current medical regimen. Discussed Life Vest compliance with the patient to prevent sudden cardiac . Follow up with Dr. Oquendo on August 12 as previously established. Nurse Practitioner note has been reviewed, I agree with a documented findings and plan of care. Patient was seen and examined. Objective - Vital Signs Vital signs: Vital Signs Temp 98.7 F 08/11/20 08:46 Pulse 60 08/11/20 12:15 Resp 16 08/11/20 12:15 BP 98/53 08/11/20 12:15 Pulse Ox 98 08/11/20 12:15 Intake & Output 08/10/20 08/11/20 08/11/20 18:59 06:59 18:59 Intake Total 840 20 250 Output Total 800 Balance 40 20 250 Weight 88.6 kg Intake: IV 20 10 Invasive Line 1 20 10 Oral 840 240 Output: Urine 800 Other: Voiding Method Toilet Toilet Urinal Urinal # Voids 0 # Bowel Movements 0 - Labs CBC & Chem 7: 08/11/20 12:39 08/11/20 07:18 Labs: Abnormal Lab Results - Last 24 Hours (Table) 08/11/20 08/11/20 08/11/20 Range/Units 07:18 07:18 12:39 WBC 17.2 H 16.7 H (3.8-10.6) k/uL RBC 4.09 L (4.30-5.90) m/uL Hct 38.9 L (39.0-53.0) % Neutrophils # 12.8 H 11.3 H (1.3-7.7) k/uL Chloride 108 H (98-107) mmol/L BUN 26 H (9-20) mg/dL Glucose 121 H (74-99) mg/dL
== END 2020-08-11 15:28 | disposition home or self-care (01) ==
LOC: EC 19:21 → 3SCARD 22:54
PROVIDERS: ADMIT Internal Medicine; ATTEND Internal Medicine
DX: I21.4 Non-ST elevation (NSTEMI) myocardial infarction (principal); S22.49XD Multiple fractures of ribs, unspecified side, subsequent encounter for fracture with routine healing; D72.829 Elevated white blood cell count, unspecified; M41.9 Scoliosis, unspecified; I25.2 Old myocardial infarction; J44.9 Chronic obstructive pulmonary disease, unspecified; E78.5 Hyperlipidemia, unspecified; I25.10 Atherosclerotic heart disease of native coronary artery without angina pectoris; N18.9 Chronic kidney disease, unspecified; I46.9 Cardiac arrest, cause unspecified; M79.605 Pain in left leg; K08.89 Other specified disorders of teeth and supporting structures; K21.9 Gastro-esophageal reflux disease without esophagitis; F41.9 Anxiety disorder, unspecified; F17.200 Nicotine dependence, unspecified, uncomplicated; Z82.49 Family history of ischemic heart disease and other diseases of the circulatory system; Z79.899 Other long term (current) drug therapy; Z79.82 Long term (current) use of aspirin; Z79.02 Long term (current) use of antithrombotics/antiplatelets; Z95.5 Presence of coronary angioplasty implant and graft; Z20.822 Contact with and (suspected) exposure to COVID-19; I25.5 Ischemic cardiomyopathy; I50.22 Chronic systolic (congestive) heart failure; Y65.8 Other specified misadventures during surgical and medical care
CPT/HCPCS: 96376 ×2; 96361 ×2; 96366 ×2; 96372; 96375 ×2; 93005 ×2; 96365; 99285; 36415; 85379; 80061; 80053; 80048; 83735; 84484 ×2; 85025 ×2; 85610; 85730 ×2; 81003; 87635; 71045; 71046; 71275; G0378 ×3; C8929; J1200; J1644 ×2; J2930; J1650; J2270 ×2; Q9950; Q9967; 93306

== ENCOUNTER 2022-06-11 18:33 | Inpatient (IN) | payer OTHER ==
--- NOTE | 2022-06-11 19:06 | XR ---
EXAMINATION TYPE: XR chest 2V DATE OF EXAM: 06/11/2022 COMPARISON: 08/11/2020 HISTORY: Chest pain TECHNIQUE: 2 views FINDINGS: Heart and mediastinum are normal. Lungs are clear. Diaphragm is normal. Bony thorax is inta ct IMPRESSION: Normal chest. No change.
--- NOTE | 2022-06-11 19:10 | ED ---
Chest Pain HPI - General Chief Complaint: Chest Pain Stated Complaint: chest pain Time Seen by Provider: 06/11/22 18:40 Source: patient Mode of arrival: EMS Limitations: no limitations - History of Present Illness Initial Comments: 56-year-old male with past history of daily alcohol use, coronary artery disease with cardiac arrest, hypertension and presents emergency department with chest pain and cough. States that for the past couple of days the patient has had symptoms of shortness of breath and chest congestion. Has been producing thick green sputum. He does have a sick contact. States that his sister has been having similar symptoms. Today the patient began having chest discomfort. It is located on the left side of his chest with radiation into his left shoulder. He does have history of significant [place] with cardiac arrest 2 years ago. EMS gave the patient two nitro and 4 baby aspirins. He states that the nitro did not alleviate his symptoms at all. He denies fevers. He does have a nebulizer however normally does not use it. Patient continues to smoke a pack a day. No other alleviating, Perceptin or modifying factors - Related Data Home Medications Medication Instructions Recorded Confirmed Pregabalin [Lyrica] 150 mg PO TID 02/04/19 06/11/22 Aspirin EC [Ecotrin Low Dose] 81 mg PO DAILY 08/09/20 06/11/22 Atorvastatin [Lipitor] 80 mg PO HS 08/09/20 06/11/22 Furosemide [Lasix] 20 mg PO DAILY PRN 08/09/20 06/11/22 Sacubitril/Valsartan [Entresto 24 1 tab PO BID 08/09/20 06/11/22 mg-26 mg Tablet] Spironolactone [Aldactone] 25 mg PO DAILY 08/09/20 06/11/22 carvediloL [Coreg] 6.25 mg PO BID 08/09/20 06/11/22 clonazePAM [KlonoPIN] 0.5 mg PO BID PRN 08/09/20 06/11/22 Empagliflozin [Jardiance] 10 mg PO DAILY 06/11/22 06/11/22 Nitroglycerin Sl Tabs [Nitrostat] 0.4 mg SUBLINGUAL Q5M PRN 06/11/22 06/11/22 Allergies Allergy/AdvReac Type Severity Reaction Status Date / Time ciprofloxacin [From Cipro] Allergy Unknown Verified 06/11/22 19:04 hydrocodone [From Lillian] Allergy Rash/Hives Verified 06/11/22 19:04 Iodinated Contrast Media AdvReac "PASSED Verified 06/11/22 19:04 [Iodinated Contrast Media - OUT FOR 3 Oral and] DAYS" Review of Systems ROS Statement: Those systems with pertinent positive or pertinent negative responses have been documented in the HPI. ROS Other: All systems not noted in ROS Statement are negative. EKG Findings - EKG Comments: EKG Findings:: EKG demonstrates sinus bradycardia with occasional PVCs. Rate of 56. SD interval 178. QRS 120. QTC of 399. Left anterior fascicular block. No acute ST segment elevations or depressions. EKG interpreted by myself Past Medical History Past Medical History: COPD, GERD/Reflux, Hyperlipidemia, Hypertension, Myocardial Infarction ([place]), Osteoarthritis (OA), Pneumonia, Thyroid Disorder Additional Past Medical History / Comment(s): DDD back, spinal cord impingment, herniated disc spine with spurs, neuropathy, rediculopathy, scoliosis, carpel tunner, heart attack 2020 with CPR, Last Myocardial Infarction Date:: 07/09/20 History of Any Multi-Drug Resistant Organisms: None Reported Past Surgical History: No Surgical Hx Reported, Heart Catheterization With Stent Past Anesthesia/Blood Transfusion Reactions: No Reported Reaction, Motion Sickness Date of Last Stent Placement:: 07/12/20 Past Psychological History: Anxiety Smoking Status: Former smoker Past Alcohol Use History: Daily Past Drug Use History: None Reported - Past Family History Father Family Medical History: Coronary Artery Disease (CAD) Additional Family Medical History / Comment(s): CABG Mother Family Medical History: Coronary Artery Disease (CAD) Additional Family Medical History / Comment(s): CABG General Exam Limitations: no limitations General appearance: alert, in no apparent distress Head exam: Present: atraumatic, normocephalic, normal inspection Eye exam: Present: normal appearance, PERRL, EOMI. Absent: scleral icterus, conjunctival injection, periorbital swelling ENT exam: Present: normal exam, mucous membranes moist Neck exam: Present: normal inspection. Absent: tenderness, meningismus, lymphadenopathy Respiratory exam: Present: normal lung sounds bilaterally. Absent: respiratory distress, wheezes, rales, rhonchi, stridor Cardiovascular Exam: Present: regular rate, normal rhythm, normal heart sounds. Absent: systolic murmur, diastolic murmur, rubs, gallop, clicks GI/Abdominal exam: Present: soft, normal bowel sounds. Absent: distended, tenderness, guarding, rebound, rigid Extremities exam: Present: normal inspection, full ROM, normal capillary refill. Absent: tenderness, pedal edema, joint swelling, calf tenderness Back exam: Present: normal inspection Neurological exam: Present: alert, oriented X3, CN II-XII intact Psychiatric exam: Present: normal affect, normal mood Skin exam: Present: warm, dry, intact, normal color. Absent: rash Course Vital Signs 06/11/22 06/11/22 06/11/22 18:35 18:41 18:50 Temperature 97.0 F L Pulse Rate 57 L 60 Pulse Rate [ 64 Household Chores ] Respiratory 18 18 Rate Blood Pressure 118/78 118/78 O2 Sat by Pulse 98 97 Oximetry 06/11/22 06/11/22 06/11/22 20:15 20:37 21:09 Temperature 97 F L Pulse Rate 54 L 54 L 50 L Pulse Rate [ Household Chores ] Respiratory 14 12 16 Rate Blood Pressure 95/57 112/54 98/70 O2 Sat by Pulse 100 99 Oximetry Chest Pain MDM - MDM Was pt. sent in by a medical professional or institution? @No Did you speak to anyone other than the patient for history? @ -EMS Did you review nursing and triage notes? @ -I reviewed nursing note and agree Were old charts reviewed? @ -Yes I reviewed the patient's previous admissions for chest pain and images of his old EKG Differential Diagnosis? @ -Differential Chest Pain: Stable Angina, Unstable Angina, STEMI, NSTEMI Aortic Dissection, Pneumothorax, Musculoskeletal, Esophageal Spasm GERD, Cholecystitis, Pancreatitis, Zoster, this is not meant to be an all-inclusive list. EKG interpreted by me (3pts min.)? @ -Yes X-rays interpreted by me (1pt min.)? @ -Yes CT interpreted by me (1pt min.)? @ -No U/S interpreted by me (1pt. min.)? @ -No What testing was considered but not performed? (CT, X-rays, U/S, labs)? Why? @ None What meds were considered but not given? Why? @ -Morphine due to patient's low blood pressure Did you discuss the management of the patient with other professionals? @ -Admitting physician, Dr. Nicolas Did you reconcile home meds? @ -Yes Was smoking cessation discussed for >3mins.? @ -Yes Was critical care preformed (if so, how long)? @ -No Were there social determinants of health that impacted care today? How? (Homelessness, low income, unemployed, alcoholism, drug addiction, transportation, low edu. Level, literacy, decrease access to med. care, assisted, rehab)? @ -None Was there de-escalation of care discussed even if they declined? (Discuss DNR or withdrawal of care, Hospice)? @ -No What co-morbidities impacted this encounter? (DM, HTN, Smoking, COPD, CAD, Cancer, CVA, Hep., AIDS, mental health diagnosis, sleep apnea, morbid obesity)? @ -Smoking, hypertension, after scrod a coronary artery disease Was patient admitted / discharged? @ -Admitted. Upon arrival patient was placed into room 4. A thorough history and physical exam was performed. Patient placed on continuous pulse ox and cardiac monitoring. 12 EKG was obtained which demonstrates no acute ST segment elevation. Laboratory studies are conducted and reviewed. Troponin is negative. Patient is positive for Covid. Did discuss treatment with Decadron and albuterol inhaler. Patient refusing steroids at this time and doesn't want to be treated in the morning and steroids keep him awake. Due to chest pain recommended admission to trend his troponins. Patient was agreeable to this. Undiagnosed new problem with uncertain prognosis? @ -Yes Drug Therapy requiring intensive monitoring for toxicity (Heparin, Nitro, Insulin, Cardizem)? @ -No Were any procedures done? @ -No Diagnosis/symptom? @ -Acute chest pain Acute, or Chronic, or Acute on Chronic? @ -Acute Uncomplicated (without systemic symptoms) or Complicated (systemic symptoms)? @ -Complicated Side effects of treatment? @ -No Exacerbation, Progression, or Severe Exacerbation] @ -No Poses a threat to life or bodily function? @ -Yes Diagnosis/symptom? @ -Acute covid infection Acute, or Chronic, or Acute on Chronic? @ Acute Uncomplicated (without systemic symptoms) or Complicated (systemic symptoms)? @ Uncomplicated Side effects of treatment? @ -None Exacerbation, Progression, or Severe Exacerbation] @ -No Poses a threat to life or bodily function? @ -No Disposition Clinical Impression: Chest pain, COVID-19 Disposition: ADMITTED IP TO THIS HOSP Condition: Stable Is patient prescribed a controlled substance at d/c from ED?: No Time of Disposition: 20:34 Decision to Admit Reason: Admit from EC Decision Date: 06/11/22 Decision Time: 20:34
[2022-06-11 19:12] LABS: Basophils # (A) 0.1 k/uL (0-0.2); Basophils % (A) 1 %; Eosinophils # (A) 0.1 k/uL (0-0.7); Eosinophils % (A) 1 %; HCT 46.7 % (39.0-53.0); HGB 16.3 gm/dL (13.0-17.5); Lymphocytes # (A) 2.4 k/uL (1.0-4.8); Lymphocytes % (A) 19 %; MCH 32.5 pg (25.0-35.0); MCHC 34.8 g/dL (31.0-37.0); MCV 93.2 fL (80.0-100.0); Mean Platelet Volume 9.8; Monocytes # (A) 0.7 k/uL (0-1.0); Monocytes % (A) 6 %; Neutrophils # (A) 9.2 k/uL (1.3-7.7); Neutrophils % (A) 72 %; Platelet Count 248 k/uL (150-450); RBC 5.01 m/uL (4.30-5.90); WBC 12.8 k/uL (3.8-10.6)
[2022-06-11 19:28] LABS: Albumin 4.3 g/dL (3.5-5.0); Calcium 9.1 mg/dL (8.4-10.2); Magnesium 2.5 mg/dL (1.6-2.3); Potassium 3.4 mmol/L (3.5-5.1); Total Bilirubin 0.9 mg/dL (0.2-1.3)
[2022-06-11 19:39] LABS: INR 1.2 (<1.2); Partial Thromboplastin Time 23.2 sec (22.0-30.0); Prothrombin Time 12.3 sec (9.0-12.0)
[2022-06-11] MEDS ORDERED: NALOXONE 0.4 MG/ML 1 ML VIAL IV PRN (20:35)
[2022-06-11] MEDS: SODIUM CHLORIDE 0.9% 1,000 ML IV SCH (21:05)
[2022-06-12] MEDS ORDERED: clonazePAM 0.5 MG TAB PO PRN (00:34)
[2022-06-12] MEDS ORDERED: FUROSEMIDE 20 MG TAB PO PRN (00:34)
--- NOTE | 2022-06-12 03:56 | P.HPIM ---
History of Present Illness H&P Date: 06/11/22 The patient is a 48-year-old male with a PMH of EtOH abuse, COPD, tobacco abuse, CAD status post multiple MIs, systolic CHF with EF 20%, chronic kidney disease, hypertension who presents to the emergency room with complaints of chest pain. The patient reports that his pain started earlier today suddenly, left-sided, pressure-like and sharp-like, with pleuritic components, 9 out of 10 at maximal intensity, nonradiating, with associated shortness of breath. States that his pain resolved shortly after arrival at the emergency room. Reports that his pain is different from his prior MIs . He also reports a cough productive of yellow- green phlegm, somewhat unchanged from his baseline. States that his sister also had similar symptoms of cough. Chest x-ray in the emergency room was unremarkable. EKG revealed sinus bradycardia with PVCs at 56 bpm with left bundle branch block as reviewed by me. Laboratory evaluation was remarkable for leukocytosis of 12.8, troponin less than 0.012, creatinine 1.59 (previously 1.3), currently worse PCR positive. Review of systems: Pertinent positives and negatives as discussed in HPI, a complete review of systems was performed and all other systems are negative. Physical examination: General: non toxic, no distress, appears at stated age, normal weight Derm: no unusual rashes/lesions, warm Head: atraumatic, normocephalic, symmetric Eyes: EOMI, no lid lag, anicteric sclera, pupils equal round reactive to light ENT: Nose and ears atraumatic Neck: No cervical lymphadenopathy, trachea midline, supple Mouth: no lip lesion, mucus membranes moist Cardiovascular: S1S2 reg, no murmur, positive dorsalis pedis pulse bilateral, no edema Lungs: CTA bilateral, no rhonchi, no rales, no accessory muscle use Abdominal: soft, nontender to palpation, no guarding Ext: muscle strength 5 out of 5 in all 4 extremities grossly, no gross muscle atrophy, no contractures, Neuro: CN II-XI grossly intact, no gross focal neuro deficits Psych: Alert, oriented, appropriate affect Assessment/plan Chest pain, rule out ACS -Cardiology consulted -Cardiac monitoring -Trend troponin -Continue with aspirin, statin COVID-19 infection -Patient not displaying any signs of pneumonia or respiratory failure -Continue to monitor for now -Suspect that chronic cough secondary to COPD CHANO on chronic kidney disease -Monitor BMP -Gentle IV hydration Chronic conditions: Hypertension, CHF -Continue with home meds DVT prophylaxis -Heparin subcu The patient is admitted with an anticipated less than 2 midnight stay for evaluation of chest pain CODE STATUS: Full Code Discussed with: Patient Anticipated discharge date: in am Anticipated discharge place: Home Past Medical History Past Medical History: COPD, GERD/Reflux, Hyperlipidemia, Hypertension, Myocardial Infarction (ME), Osteoarthritis (OA), Pneumonia, Renal Disease, Thyroid Disorder Additional Past Medical History / Comment(s): DDD back, spinal cord impingment, herniated disc spine with spurs, neuropathy, rediculopathy, scoliosis, carpel tunnel, heart attack 2020 with CPR. Patient states he has not been diagnosed with diabetes. Last Myocardial Infarction Date:: 07/09/20 History of Any Multi-Drug Resistant Organisms: None Reported Past Surgical History: Heart Catheterization With Stent Past Anesthesia/Blood Transfusion Reactions: Motion Sickness Date of Last Stent Placement:: 07/12/20 Past Psychological History: Anxiety Smoking Status: Former smoker Past Alcohol Use History: Daily Additional Past Alcohol Use History / Comment(s): Drank daily 20 years ago. Past Drug Use History: None Reported - Past Family History Father Family Medical History: Coronary Artery Disease (CAD) Additional Family Medical History / Comment(s): CABG Mother Family Medical History: Coronary Artery Disease (CAD) Additional Family Medical History / Comment(s): CABG Medications and Allergies Home Medications Medication Instructions Recorded Confirmed Type Pregabalin [Lyrica] 150 mg PO TID 02/04/19 06/11/22 History Aspirin EC [Ecotrin Low Dose] 81 mg PO DAILY 08/09/20 06/11/22 History Atorvastatin [Lipitor] 80 mg PO HS 08/09/20 06/11/22 History Furosemide [Lasix] 20 mg PO DAILY PRN 08/09/20 06/11/22 History Sacubitril/Valsartan [Entresto 24 1 tab PO BID 08/09/20 06/11/22 History mg-26 mg Tablet] Spironolactone [Aldactone] 25 mg PO DAILY 08/09/20 06/11/22 History carvediloL [Coreg] 6.25 mg PO BID 08/09/20 06/11/22 History clonazePAM [KlonoPIN] 0.5 mg PO BID PRN 08/09/20 06/11/22 History Empagliflozin [Jardiance] 10 mg PO DAILY 06/11/22 06/11/22 History Nitroglycerin Sl Tabs [Nitrostat] 0.4 mg SUBLINGUAL Q5M PRN 06/11/22 06/11/22 History Allergies Allergy/AdvReac Type Severity Reaction Status Date / Time ciprofloxacin [From Cipro] Allergy Unknown Verified 06/11/22 19:04 hydrocodone [From [place]] Allergy Rash/Hives Verified 06/11/22 19:04 Iodinated Contrast Media AdvReac "PASSED Verified 06/11/22 19:04 [Iodinated Contrast Media - OUT FOR 3 Oral and] DAYS" Physical Exam Vitals: Vital Signs Temp Pulse Pulse Resp BP BP Pulse Ox 06/11/22 21:59 63 16 06/11/22 21:42 97.5 F L 63 16 105/67 98 06/11/22 21:09 97 F L 50 L 16 98/70 99 06/11/22 20:37 54 L 12 112/54 100 06/11/22 20:15 54 L 14 95/57 06/11/22 18:50 60 18 118/78 97 06/11/22 18:41 64 06/11/22 18:35 97.0 F L 57 L 18 118/78 98 Intake and Output 06/11/22 06/11/22 06/12/22 14:59 22:59 06:59 Intake Total 300 Balance 300 Intake: Oral 300 Other: Voiding Method Toilet Weight 86.183 kg Results CBC & Chem 7: 06/11/22 18:44 06/11/22 18:44 Labs: Abnormal Lab Results - Last 24 Hours (Table) 06/11/22 06/11/22 06/11/22 Range/Units 18:44 18:44 18:44 WBC 12.8 H (3.8-10.6) k/uL Neutrophils # 9.2 H (1.3-7.7) k/uL PT 12.3 H (9.0-12.0) sec INR 1.2 H (<1.2) Potassium 3.4 L (3.5-5.1) mmol/L BUN 44 H (9-20) mg/dL Creatinine 1.59 H (0.66-1.25) mg/dL Glucose 109 H (74-99) mg/dL Magnesium 2.5 H (1.6-2.3) mg/dL Coronavirus (PCR) (Not Detectd) 06/11/22 Range/Units 18:44 WBC (3.8-10.6) k/uL Neutrophils # (1.3-7.7) k/uL PT (9.0-12.0) sec INR (<1.2) Potassium (3.5-5.1) mmol/L BUN (9-20) mg/dL Creatinine (0.66-1.25) mg/dL Glucose (74-99) mg/dL Magnesium (1.6-2.3) mg/dL Coronavirus (PCR) Detected A (Not Detectd) Thrombosis Risk Factor Assmnt - Choose All That Apply Each Factor Represents 1 point: Abnormal pulmonary function (COPD), Age 41-60 years, Obesity (BMI >25) Thrombosis Risk Factor Assessment Total Risk Factor Score: 3 Thrombosis Risk Factor Assessment Level: Moderate Risk
--- NOTE | 2022-06-12 08:51 | P.CRDCN ---
History of Present Illness Consult date: 06/12/22 History of present illness: HISTORY OF PRESENT ILLNESS: This is a 56-year-old male with a past medical history significant for coronary artery disease with previous PCI of LAD in June 2020 in [place], cardiac arrest, ischemic cardiomyopathy, chronic kidney disease, hypertension, hyperlipidemia, COPD, alcohol use, and tobacco abuse. The patient suffered a SC in [place] in 2020 and went into cardiac arrest. He was also discharged from there with a LifeVest but does not wear it. Patient follows in the office with Dr. Mcmullen. We have been asked to see the patient in consultation for chest pain. Patient examined at the bedside. Patient states he started having a productive cough a few days ago. He denied any fever or chills. He reports feeling congested but denies overt shortness of breath. He reports chest discomfort that started after he began coughing. * EKG reveals sinus mechanism with Q waves in anterior and inferior leads * Chest xray normal chest. No change. * Laboratory data: WBC 12.8. Hemoglobin 16.3. Platelet count 248. Sodium 137. Potassium 3.4. BUN 44. Creatinine 1.59. Troponin negative 3. ProBNP 527. Patient was positive for coronavirus. * Current home cardiac medications include Lipitor 80 mg at night, Aldactone 25 mg daily, carvedilol 6.25 mg twice a day, Lasix 20 mg daily as needed, Entresto 24-26mg BID, and Jardiance 10mg daily. * Most recent echocardiogram obtained in November 2020 revealed ejection fraction less than 20%, mild tricuspid regurgitation, mild mitral regurgitation * Patient underwent exercise stress test in February 2021 which was nondiagnostic secondary to baseline EKG abnormalities. REVIEW OF SYSTEMS: At the time of my exam: CONSTITUTIONAL: Denies fever or chills. HEENT: Denies blurred vision, vision changes, or eye pain. Denies hemoptysis CARDIOVASCULAR: Denies chest pain. Denies orthopnea. Denies PND. Denies palpitations RESPIRATORY: Denies shortness of breath. GASTROINTESTINAL: Denies abdominal pain. Denies nausea or vomiting. HEMATOLOGIC: Denies bleeding disorders. GENITOURINARY: Denies any blood in urine. SKIN: Denies pruitis. Denies rash. PHYSICAL EXAM: VITAL SIGNS: Reviewed. GENERAL: Well-developed in no acute distress. HEENT: Head is normocephalic. Pupils are equal, round. Sclerae anicteric. Mucous membranes of the mouth are moist. Neck supple. No JVD or thyromegaly LUNGS: Respirations even and unlabored. Lungs essentially clear to auscultation bilaterally. HEART: Regular rate and rhythm. S1 and S2 heard. ABDOMEN: Soft. Nondistended. Nontender. EXTREMITIES: Normal range of motion. No clubbing or cyanosis. Peripheral pulses intact. No lower extremity edema NEUROLOGIC: Awake and alert. Oriented x 3. ASSESSMENT: Chest pain, troponin negative x 3 + Covid Coronary artery disease with PCI of LAD, June 2020 Hypertension Hyperlipidemia Ischemic cardiomyopathy Chronic kidney disease Alcohol use Nicotine dependence PLAN: An acute coronary event has been ruled out Resume home cardiac medications Obtain 2D echo to assess cardiac structure and function Likely outpatient stress test Further recommendations pending patient course Nurse practitioner note has been reviewed by physician. Signing provider agrees with the documented findings, assessment, and plan of care. Past Medical History Past Medical History: COPD, GERD/Reflux, Hyperlipidemia, Hypertension, Myocardial Infarction (SC), Osteoarthritis (OA), Pneumonia, Renal Disease, Thyroid Disorder Additional Past Medical History / Comment(s): DDD back, spinal cord impingment, herniated disc spine with spurs, neuropathy, rediculopathy, scoliosis, carpel tunnel, heart attack 2020 with CPR. Patient states he has not been diagnosed with diabetes. Last Myocardial Infarction Date:: 07/09/20 History of Any Multi-Drug Resistant Organisms: None Reported Past Surgical History: Heart Catheterization With Stent Past Anesthesia/Blood Transfusion Reactions: Motion Sickness Date of Last Stent Placement:: 07/12/20 Past Psychological History: Anxiety Smoking Status: Former smoker Past Alcohol Use History: Daily Additional Past Alcohol Use History / Comment(s): Drank daily 20 years ago. Past Drug Use History: None Reported - Past Family History Father Family Medical History: Coronary Artery Disease (CAD) Additional Family Medical History / Comment(s): CABG Mother Family Medical History: Coronary Artery Disease (CAD) Additional Family Medical History / Comment(s): CABG Medications and Allergies Home Medications Medication Instructions Recorded Confirmed Type Pregabalin [Lyrica] 150 mg PO TID 02/04/19 06/11/22 History Aspirin EC [Ecotrin Low Dose] 81 mg PO DAILY 08/09/20 06/11/22 History Atorvastatin [Lipitor] 80 mg PO HS 08/09/20 06/11/22 History Furosemide [Lasix] 20 mg PO DAILY PRN 08/09/20 06/11/22 History Sacubitril/Valsartan [Entresto 24 1 tab PO BID 08/09/20 06/11/22 History mg-26 mg Tablet] Spironolactone [Aldactone] 25 mg PO DAILY 08/09/20 06/11/22 History carvediloL [Coreg] 6.25 mg PO BID 08/09/20 06/11/22 History clonazePAM [KlonoPIN] 0.5 mg PO BID PRN 08/09/20 06/11/22 History Empagliflozin [Jardiance] 10 mg PO DAILY 06/11/22 06/11/22 History Nitroglycerin Sl Tabs [Nitrostat] 0.4 mg SUBLINGUAL Q5M PRN 06/11/22 06/11/22 History Allergies Allergy/AdvReac Type Severity Reaction Status Date / Time ciprofloxacin [From Cipro] Allergy Unknown Verified 06/11/22 19:04 hydrocodone [From [place]] Allergy Rash/Hives Verified 06/11/22 19:04 Iodinated Contrast Media AdvReac "PASSED Verified 06/11/22 19:04 [Iodinated Contrast Media - OUT FOR 3 Oral and] DAYS" Physical Exam Vitals: Vital Signs Temp Pulse Pulse Resp BP BP Pulse Ox 06/12/22 02:15 97.6 F 52 L 17 98/55 99 06/12/22 01:06 16 06/11/22 21:59 63 16 06/11/22 21:42 97.5 F L 63 16 105/67 98 06/11/22 21:09 97 F L 50 L 16 98/70 99 06/11/22 20:37 54 L 12 112/54 100 06/11/22 20:15 54 L 14 95/57 06/11/22 18:50 60 18 118/78 97 06/11/22 18:41 64 06/11/22 18:35 97.0 F L 57 L 18 118/78 98 Intake and Output 06/11/22 06/12/22 06/12/22 22:59 06:59 14:59 Intake Total 300 0 Balance 300 0 Intake: Oral 300 0 Other: Voiding Method Toilet # Voids 2 Weight 86.183 kg Results 06/11/22 18:44 06/11/22 18:44 Cardiac Enzymes 06/11/22 06/11/22 06/11/22 Range/Units 18:44 18:44 21:21 AST 17 (17-59) U/L Troponin I <0.012 0.012 (0.000-0.034) ng/mL 06/11/22 Range/Units 23:44 AST (17-59) U/L Troponin I <0.012 (0.000-0.034) ng/mL Coagulation 06/11/22 Range/Units 18:44 PT 12.3 H (9.0-12.0) sec APTT 23.2 (22.0-30.0) sec CBC 06/11/22 Range/Units 18:44 WBC 12.8 H (3.8-10.6) k/uL RBC 5.01 (4.30-5.90) m/uL Hgb 16.3 (13.0-17.5) gm/dL Hct 46.7 (39.0-53.0) % Plt Count 248 (150-450) k/uL Comprehensive Metabolic Panel 06/11/22 Range/Units 18:44 Sodium 137 (137-145) mmol/L Potassium 3.4 L (3.5-5.1) mmol/L Chloride 104 (98-107) mmol/L Carbon Dioxide 27 (22-30) mmol/L BUN 44 H (9-20) mg/dL Creatinine 1.59 H (0.66-1.25) mg/dL Glucose 109 H (74-99) mg/dL Calcium 9.1 (8.4-10.2) mg/dL AST 17 (17-59) U/L ALT 10 (4-49) U/L Alkaline Phosphatase 65 (38-126) U/L Total Protein 8.0 (6.3-8.2) g/dL Albumin 4.3 (3.5-5.0) g/dL Current Medications Generic Name Dose Route Start Last Admin Trade Name Freq PRN Reason Stop Dose Admin Albuterol Sulfate 2 puff 06/11/22 20:47 Albuterol Hfa Inhaler INHALATION RT-QID PRN Shortness Of Breath Or Wheezing Aspirin 81 mg 06/12/22 09:00 Aspirin 81 Mg PO DAILY MICAELA Atorvastatin Calcium 80 mg 01/02/23 21:00 Atorvastatin 80 Mg Tab PO HS MICAELA Carvedilol 6.25 mg 06/12/22 09:00 Carvedilol 6.25 Mg Tab PO BID MICAELA Clonazepam 0.5 mg 06/12/22 00:34 Clonazepam 0.5 Mg Tab PO BID PRN Anxiety Furosemide 20 mg 06/12/22 00:34 Furosemide 20 Mg Tab PO DAILY PRN Edema Heparin Sodium (Porcine) 5,000 unit 06/12/22 08:00 Heparin Sodium,Porcine/Pf 5,000 Unit/0.5 Ml Syringe SQ Q8HR MICAELA Sodium Chloride 1,000 mls @ 75 mls/hr 06/11/22 20:45 06/11/22 21:05 Saline 0.9% IV 75 mls/hr .[id number] MICAELA Administration Naloxone HCl 0.2 mg 06/11/22 20:35 Naloxone 0.4 Mg/Ml 1 Ml Vial IV Q2M PRN Opioid Reversal Pregabalin 150 mg 06/12/22 09:00 Pregabalin 75 Mg Cap PO TID MICAELA Spironolactone 25 mg 06/12/22 09:00 Spironolactone 25 Mg Tab PO DAILY COUNTS INCLUDE 234 BEDS AT THE [facility] Intake and Output 06/11/22 06/12/22 06/12/22 22:59 06:59 14:59 Intake Total 300 0 Balance 300 0 Intake: Oral 300 0 Other: Voiding Method Toilet # Voids 2 Weight 86.183 kg 06/11/22 18:44 06/11/22 18:44
[2022-06-12] MEDS: ASPIRIN 81 MG PO SCH (08:54)
[2022-06-12] MEDS: HEPARIN SODIUM,PORCINE/PF 5,000 UNIT/0.5 ML SYRINGE SQ SCH ×3 (08:54→23:01)
[2022-06-12] MEDS: PREGABALIN 75 MG CAP PO SCH ×3 (08:54→20:48)
[2022-06-12] MEDS: SPIRONOLACTONE 25 MG TAB PO SCH ×2 (08:54→08:57)
[2022-06-12] MEDS: carvediloL 6.25 MG TAB PO SCH ×2 (08:54→20:47)
[2022-06-12] MEDS ORDERED: DAPAGLIFLOZIN PROPANEDIOL 5 MG TABLET PO SCH (09:00)
[2022-06-12] MEDS ORDERED: DEXAMETHASONE SOD PHOSPHATE 10 MG/ML 1 ML VIAL IVP SCH (09:00)
[2022-06-12] MEDS ORDERED: SACUBITRIL/VALSARTAN 24 MG-26 MG TABLET PO SCH (09:00)
[2022-06-12 09:04] LABS: Basophils # (A) 0.06 X 10*3/uL (0.00-0.10); Basophils % (A) 0.6 %; Eosinophils # (A) 0.19 X 10*3/uL (0.04-0.35); Eosinophils % (A) 1.8 %; HCT 44.6 % (39.6-50.0); HGB 15.4 g/dL (13.0-17.0); Immature Grans, Automated 0.4 %; Lymphocytes # (A) 4.04 X 10*3/uL (0.90-5.00); Lymphocytes % (A) 37.7 %; MCH 31.8 pg (27.0-32.0); MCHC 34.5 g/dL (32.0-37.0); Mean Platelet Volume 11.4 fL (9.5-12.2); Monocytes # (A) 1.21 X 10*3/uL (0.20-1.00); Monocytes % (A) 11.3 %; NRBC Per 100 WBC 0 /100 WBCS (0.0-0.0); Neutrophils # (A) 5.19 X 10*3/uL (1.80-7.70); Neutrophils % (A) 48.2 %; Platelet Count 262 X 10*3/uL (140-440); RBC 4.85 X 10*6/uL (4.40-5.60); RDW 13.6 % (11.5-14.5); WBC 10.73 X 10*3/uL (4.50-10.00)
[2022-06-12 09:33] LABS: African American GFR (CKD) 60.6 (60.0-200.0); Anion Gap 8.8 mmol/L (10.00-18.00); BUN/Creat Ratio 26.78 Ratio (12.00-20.00); Blood Urea Nitrogen 39.1 mg/dL (9.0-27.0); Calcium 9.1 mg/dL (8.7-10.3); Carbon Dioxide 29.1 mmol/L (20.0-27.5); Non-African American GFR(CKD) 52.3 (60.0-200.0); Potassium 3.8 mmol/L (3.5-5.5)
[2022-06-12] MEDS: SODIUM CHLORIDE 0.9% 1,000 ML IV SCH (11:30)
--- NOTE | 2022-06-12 11:39 | P.PN ---
Subjective Progress Note Date: 06/12/22 Principal diagnosis: chest pain Patient had symptoms of chest pain and sob, currently resolved. Denied fevers or chills. No n/v. He was undergoing echocardiogram when seen. Objective - Vital Signs Vital signs: Vital Signs Temp 97.7 F 06/12/22 07:00 Pulse 57 L 06/12/22 07:00 Resp 16 06/12/22 07:00 BP 88/58 06/12/22 07:00 Pulse Ox 96 06/12/22 07:00 FiO2 Intake & Output 06/11/22 06/12/22 06/12/22 18:59 06:59 18:59 Intake Total 300 200 Balance 300 200 Weight 86.183 kg 86.183 kg Intake: Oral 300 200 Other: Voiding Method Toilet # Voids 2 - Exam Constitutional: No acute distress, conversant, pleasant Eyes:Anicteric sclerae, moist conjunctiva, no lid-lag, PERRLA, ENMT: Oropharynx clear, no erythema, exudates Neck: Supple, FROM, no masses, or JVD, No carotid bruits, No thyromegaly Lungs: Clear to auscultation, Clear to percussion, Normal respiratory effort, no accessory muscle use Cardiovascular: Heart regular in rate and rhythm, No murmurs, gallops, or rubs, No peripheral edema Abdominal: Soft, Nontender, no guarding, rebound or rigidity, Normoactive bowel sounds, No hepatomegaly, No splenomegaly, No palpable mass Skin: Normal temperature, tone, texture, turgor, no induration, No subcutaneous nodules, No rash, lesions, No ulcers Extremities: No digital cyanosis, No clubbing, Pedal pulses intact and symmetrical, Radial pulses intact and symmetrical, No calf tenderness Psychiatric: Alert and oriented to person, place and time, appropriate affect, intact judgement Neuro: Muscles Strength 5/5 in all 4 extremities, Sensation to light touch grossly present throughout, Cranial nerves II-XII grossly intact, no focal sensory deficits - Labs CBC & Chem 7: 06/12/22 05:26 06/12/22 05:26 Labs: Abnormal Lab Results - Last 24 Hours (Table) 06/11/22 06/11/22 06/11/22 Range/Units 18:44 18:44 18:44 WBC 12.8 H (3.8-10.6) k/uL Neutrophils # 9.2 H (1.3-7.7) k/uL Monocytes # (0.20-1.00) X 10*3/uL PT 12.3 H (9.0-12.0) sec INR 1.2 H (<1.2) Potassium 3.4 L (3.5-5.1) mmol/L Carbon Dioxide (20.0-27.5) mmol/L Anion Gap (10.00-18.00) mmol/L BUN 44 H (9-20) mg/dL Creatinine 1.59 H (0.66-1.25) mg/dL Est GFR (CKD-EPI)NonAf (60.0-200.0) BUN/Creatinine Ratio (12.00-20.00) Ratio Glucose 109 H (74-99) mg/dL Magnesium 2.5 H (1.6-2.3) mg/dL Coronavirus (PCR) (Not Detectd) 06/11/22 06/12/22 06/12/22 Range/Units 18:44 05:26 05:26 WBC 10.73 H (3.8-10.6) k/uL Neutrophils # (1.3-7.7) k/uL Monocytes # 1.21 H (0.20-1.00) X 10*3/uL PT (9.0-12.0) sec INR (<1.2) Potassium (3.5-5.1) mmol/L Carbon Dioxide 29.1 H (20.0-27.5) mmol/L Anion Gap 8.80 L (10.00-18.00) mmol/L BUN 39.1 H (9-20) mg/dL Creatinine (0.66-1.25) mg/dL Est GFR (CKD-EPI)NonAf 52.3 L (60.0-200.0) BUN/Creatinine Ratio 26.78 H (12.00-20.00) Ratio Glucose (74-99) mg/dL Magnesium (1.6-2.3) mg/dL Coronavirus (PCR) Detected A (Not Detectd) Assessment and Plan Plan: Chest pain, rule out ACS -Cardiology consulted--getting echo, awaiting results. Likely outpatient stress. -Cardiac monitoring -Troponin trended negative, ACS ruled out -Continue with aspirin, statin COVID-19 infection -Could be causing above symptoms. -Continue to monitor for now CHANO on chronic kidney disease -Better today -Monitor BMP -Gentle IV hydration Chronic conditions: Hypertension, CHF -Continue with home meds DVT prophylaxis -Heparin subcu CODE STATUS: Full Code Discussed with: Patient Anticipated discharge date: in am Anticipated discharge place: Home
[2022-06-12] MEDS: ALBUTEROL HFA INHALER INHALATION PRN (12:55)
--- NOTE | 2022-06-12 14:14 | CA ---
Transthoracic Echo Report Name: River Garcia Age: 56 Gender: M : 1965 Exam Date: 06/12/2022 10:02 Exam Location: [facility] Ht (in): 72 Wt (lb): 190 Ordering Physician: Aide Nunez Attending/Referring Phys: [id number], Enrique [employer] Supervisor Brenda Palafox RDCS Procedure CPT: Indications: CP Cardiac Hx: Technical Quality: Technically difficult study Contrast 1: Lumason Total Dose (mL): 4 Contrast 2: Total Dose (mL): MEASUREMENTS (Male / Female) Normal Values 2D ECHO LV Diastolic Diameter PLAX 6.1 cm 4.2 - 5.9 / 3.9 - 5.3 cm LV Systolic Diameter PLAX 5.5 cm IVS Diastolic Thickness 1.2 cm 0.6 - 1.0 / 0.6 - 0.9 cm LVPW Diastolic Thickness 1.2 cm 0.6 - 1.0 / 0.6 - 0.9 cm LV Relative Wall Thickness 0.4 LA Volume 66.0 cm??? 18 - 58 / 22 - 52 cm??? M-MODE Aortic Root Diameter MM 3.6 cm LA Systolic Diameter MM 4.4 cm LA Ao Ratio MM 1.2 AV Cusp Separation MM 2.2 cm DOPPLER AV Peak Velocity 112.4 cm/s AV Peak Gradient 5.1 mmHg LVOT Peak Velocity 105.1 cm/s LVOT Peak Gradient 4.4 mmHg MV Area PHT 3.2 cm??? Mitral E Point Velocity 69.1 cm/s Mitral A Point Velocity 61.0 cm/s Mitral E to A Ratio 1.1 MV Deceleration Time 240.1 ms TR Peak Velocity 204.2 cm/s TR Peak Gradient 16.7 mmHg Right Ventricular Systolic Press 21.7 mmHg FINDINGS Left Ventricle Mildly increased septal wall thickness. Mildly increased left ventricular diastolic diameter. Severely reduced global left ventricular systolic function. Left ventricular ejection fraction is estimated at15-20 %. Right Ventricle Right ventricular systolic pressure within normal limits. Right ventricle not well visualized. Right Atrium Normal right atrial size. Left Atrium Mildly increased left atrial volume. Mitral Valve Structurally normal mitral valve. Mild mitral regurgitation. Aortic Valve No aortic valve stenosis or regurgitation. Tricuspid Valve Mild tricuspid regurgitation. Pulmonic Valve Trace pulmonic regurgitation. Pericardium No pericardial effusion. Aorta Normal size aortic root and proximal ascending aorta. CONCLUSIONS Severely impaired left ventricular systolic function was EF around 15% with global hypokinesia Previewed by: Dr. Zeb Ji MD (Electronically Signed) Final Date: 12 June 2022 14:14
[2022-06-12] MEDS ORDERED: SODIUM CHLORIDE 0.9% 500 ML 250 ML IV ONE (15:46)
[2022-06-12] MEDS: ATORVASTATIN 80 MG TAB PO SCH (20:48)
[2022-06-13] MEDS: SODIUM CHLORIDE 0.9% 1,000 ML IV SCH ×2 (04:52→14:19)
[2022-06-13] MEDS: ASPIRIN 81 MG PO SCH (08:55)
[2022-06-13] MEDS: HEPARIN SODIUM,PORCINE/PF 5,000 UNIT/0.5 ML SYRINGE SQ SCH ×3 (08:56→21:59)
[2022-06-13] MEDS: PREGABALIN 75 MG CAP PO SCH ×3 (08:56→21:59)
[2022-06-13] MEDS: carvediloL 6.25 MG TAB PO SCH (09:01)
[2022-06-13] MEDS: ALBUTEROL HFA INHALER INHALATION PRN ×2 (09:37→20:15)
--- NOTE | 2022-06-13 10:03 | P.PN ---
Subjective Progress Note Date: 06/13/22 HISTORY OF PRESENT ILLNESS: This is a 56-year-old male with a past medical history significant for coronary artery disease with previous PCI of LAD in June 2020 in [place], cardiac arrest, ischemic cardiomyopathy, chronic kidney disease, hypertension, hyperlipidemia, COPD, alcohol use, and tobacco abuse. The patient suffered a NH in [place] in 2020 and went into cardiac arrest. He was also discharged from there with a LifeVest but does not wear it. Patient follows in the office with Dr. Mcmullen. We have been asked to see the patient in consultation for chest pain. Patient examined at the bedside. Patient states he started having a productive cough a few days ago. He denied any fever or chills. He reports feeling congested but denies overt shortness of breath. He reports chest discomfort that started after he began coughing. * EKG reveals sinus mechanism with Q waves in anterior and inferior leads * Chest xray normal chest. No change. * Laboratory data: WBC 12.8. Hemoglobin 16.3. Platelet count 248. Sodium 137. Potassium 3.4. BUN 44. Creatinine 1.59. Troponin negative 3. ProBNP 527. Patient was positive for coronavirus. * Current home cardiac medications include Lipitor 80 mg at night, Aldactone 25 mg daily, carvedilol 6.25 mg twice a day, Lasix 20 mg daily as needed, Entresto 24-26mg BID, and Jardiance 10mg daily. * Most recent echocardiogram obtained in November 2020 revealed ejection fraction less than 20%, mild tricuspid regurgitation, mild mitral regurgitation * Patient underwent exercise stress test in February 2021 which was nondiagnostic secondary to baseline EKG abnormalities. 06/13/2022 Patient examined this morning at the bedside. Patient denies chest pain or pressure. He continues to report some chest congestion. He has been hypotensive and his cardiac medications were held. He denies feeling dizzy or lightheaded. Echocardiogram completed revealing ejection fraction 15-20%, mild MR, mild TR PHYSICAL EXAM: Thorough physical exam not completed secondary to limited evaluation/examination due to Covid19 ASSESSMENT: Chest pain, troponin negative x 3 + Covid Hypotension Coronary artery disease with PCI of LAD, June 2020 Hypertension Hyperlipidemia Ischemic cardiomyopathy Chronic kidney disease Alcohol use Nicotine dependence PLAN: An acute coronary event has been ruled out Continue carvedilol. Hold for HR less than 60 or SBP less than 90. Resume Aldactone when blood pressure is able to tolerate. May resume Entresto on an outpatient basis due to hypotension Likely outpatient stress test Stable from a cardiac standpoint Further recommendations pending patient course Nurse practitioner note has been reviewed by physician. Signing provider agrees with the documented findings, assessment, and plan of care. Objective - Vital Signs Vital signs: Vital Signs Temp 97.7 F 06/13/22 07:00 Pulse 58 L 06/13/22 07:00 Resp 16 06/13/22 07:00 BP 84/50 06/13/22 07:00 Pulse Ox 97 06/13/22 07:00 FiO2 Intake & Output 06/12/22 06/13/22 06/13/22 18:59 06:59 18:59 Intake Total 318 250 118 Balance 318 250 118 Intake: Oral 318 250 118 Other: Voiding Method Urinal # Voids 1 0 # Bowel Movements 1 - Labs CBC & Chem 7: 06/12/22 05:26 06/12/22 05:26
[2022-06-13] MEDS ORDERED: CEFEPIME 2 GM in SODIUM CHLORIDE 0.9% 100 ML IVPB SCH ×2 (14:15→16:00)
[2022-06-13] MEDS: CHOLECALCIFEROL 125 MCG (5000 IU) TABLET PO SCH (14:18)
[2022-06-13] MEDS: ASCORBIC ACID 500 MG TAB PO SCH (14:18)
[2022-06-13] MEDS: ZINC SULFATE 220 MG CAP PO SCH (14:18)
--- NOTE | 2022-06-13 14:28 | P.PN ---
Subjective Progress Note Date: 06/13/22 Patient seen and examined at bedside. Patient denies chest pain but admits to some shortness of breath. Patient is COVID positive. Repeat echocardiogram reveals an ejection fraction 15% patient admits to chronic fatigue. Patient has been hypotensive this morning. Antihypertensives have been currently held. Patient is receiving slow IV hydration. Patient has not been treated for Covid. Objective - Vital Signs Vital signs: Vital Signs Temp 97.7 F 06/13/22 07:00 Pulse 57 L 06/13/22 08:00 Resp 16 06/13/22 07:00 BP 89/55 06/13/22 12:26 Pulse Ox 97 06/13/22 07:00 FiO2 Intake & Output 06/12/22 06/13/22 06/13/22 18:59 06:59 18:59 Intake Total 318 250 118 Balance 318 250 118 Intake: Oral 318 250 118 Other: Voiding Method Urinal # Voids 1 0 # Bowel Movements 1 - Exam General: [non toxic], [no distress], [appears at stated age] Derm: [warm], [dry] Head: [atraumatic], [normocephalic], [symmetric] Eyes: [EOMI], [no lid lag], [anicteric sclera] Mouth: [no lip lesion], [mucus membranes moist] Cardiovascular: [S1S2 reg], [systolic murmur], [positive posterior tibial pulse bilateral], Lungs: [diminished bilateral] , [no accessory muscle use] Abdominal: [soft], [ nontender to palpation], [no guarding], [no appreciable organomegaly] Ext: [no gross muscle atrophy], [no edema], [no contractures] Neuro: [ CN II-XI grossly intact], [no focal neuro deficits] Psych: [Alert], [oriented], [appropriate affect] - Labs CBC & Chem 7: 06/12/22 05:26 06/12/22 05:26 Assessment and Plan Assessment: 1. Shortness of breath with hypotension multifactorial Likely due to COVID with underlying COPD and chronic systolic heart failure CT chest without contrast ordered (contrast avoided due to CHANO on CKD) CXR negative Solu-Medrol ordered Vitamins C, D, and zinc ordered Check pro-calcitonin level, lactic acid, and d-dimer Consult pulmonary to assess treatment with Remdesivir Parameters placed on antihypertensives Slow IV hydration 2. Chest pain likely due to #1 Per cardiology patient warrants an outpatient stress test Cardiology following 3. CHANO on CKD improved baseline Cr is around 1.3 today Creatinine is at 1.5 from 1.59 yesterday 4. Chronic conditions: Hypertension and CHF coreg decreased to 3.125 BID from 6.25 BID with parameters placed due to hypotension medication has not been given since last night DVT prophylaxis -Heparin subcu CODE STATUS: Full Code Discussed with: Patient Anticipated discharge place: Home Time with Patient: Greater than 30
--- NOTE | 2022-06-13 16:03 | CT ---
EXAMINATION TYPE: CT chest wo con CT DLP: 305.4 mGycm, Automated exposure control for dose reduction was used. DATE OF EXAM: 06/13/2022 3:49 PM COMPARISON: Anterior chest 08/09/2020, chest radiograph 06/11/2022. CLINICAL INDICATION:Male, 56 years old with history of shortness of breath; sob TECHNIQUE: Multiple axial images were obtained through the chest. Sagittal and coronal reformats were created for review. Contrast used: none Oral contrast used: none. FINDINGS: LUNGS/ PLEURA: No focal consolidation, pneumothorax or pleural effusion. AIRWAY: Patent and unremarkable. HEART: Size within normal limits. Calcified atherosclerosis of the left anterior descending coronary artery versus stent graft. MEDIASTINUM: No gross evidence of adenopathy. VASCULATURE: No aortic aneurysm. MUSCULOSKELETAL: No acute osseous abnormalities, mild multilevel disc degeneration changes of the spi ne. SOFT TISSUES/LYMPH NODES: Unremarkable. LOWER NECK: Enlarged right thyroid gland. UPPER ABDOMEN: No significant findings. IMPRESSION: No evidence for acute thoracic process to explain the patient's shortness of breath.
--- NOTE | 2022-06-13 16:39 | P.CNPUL ---
History of Present Illness Consult date: 06/13/22 Requesting physician: Sulaiman Nicolas Reason for consult: dyspnea, cough, COPD, hypoxemia Chief complaint: Shortness of breath. History of present illness: Pulmonary consult dated 06/13/2022. 56-year-old male with a history of daily alcohol use, ongoing tobacco use, coronary disease, previous cardiac arrest, and hypertension, who is followed at the [place], complains of increasing shortness of breath, chest congestion, cough, and thick green phlegm production. The patient sees some soda provider at the [facility]. The patient has not seen our group in the past. The patient is a heavy smoker, having smoked for 40 years, 1-2 packs a day. The patient apparently did test positive for coronavirus in the emergency room. Unfortunately, the patient is on vaccinated. Currently, he is on room air. He's also getting saline at 75 mL an hour. White count 10.7, hemoglobin 15.4, hematocrit 44.6, and platelet count is normal. D-dimer was 1.62. Sodium 142, potassium 3.8, chlorides 104, CO2 29, anion gap 9, BUN 39, and creatinine 1.5. Troponins were negative 3. N-terminal proBNP was 527. He tested negative for influenza A and B. Chest x- ray showed no abnormalities. Review of Systems REVIEW OF SYSTEMS: CONSTITUTIONAL: [Negative.] NEUROLOGIC: [ Negative.] HEENT: [ Negative.] CARDIAC: [Negative.] PULMONARY: Shortness of breath, cough, chest congestion, and occasional phlegm production. GI: [Negative.] : [Negative.] RHEUMATOLOGIC: [ Negative.] IMMUNOLOGIC: [ Negative.] ENDOCRINE: [Negative. ] DERMATOLOGIC: [Negative.] Past Medical History Past Medical History: COPD, GERD/Reflux, Hyperlipidemia, Hypertension, M yocardial Infarction (NE), Osteoarthritis (OA), Pneumonia, Renal Disease, Thyroid Disorder Additional Past Medical History / Comment(s): DDD back, spinal cord impingment, herniated disc spine with spurs, neuropathy, rediculopathy, scoliosis, carpel tunnel, heart attack 2020 with CPR. Patient states he has not been diagnosed with diabetes. Last Myocardial Infarction Date:: 07/09/20 History of Any Multi-Drug Resistant Organisms: None Reported Past Surgical History: Heart Catheterization With Stent Past Anesthesia/Blood Transfusion Reactions: Motion Sickness Date of Last Stent Placement:: 07/12/20 Past Psychological History: Anxiety Smoking Status: Former smoker Past Alcohol Use History: Daily Additional Past Alcohol Use History / Comment(s): Drank daily 20 years ago. Past Drug Use History: None Reported - Past Family History Father Family Medical History: Coronary Artery Disease (CAD) Additional Family Medical History / Comment(s): CABG Mother Family Medical History: Coronary Artery Disease (CAD) Additional Family Medical History / Comment(s): CABG Medications and Allergies Home Medications Medication Instructions Recorded Confirmed Type Pregabalin [Lyrica] 150 mg PO TID 02/04/19 06/11/22 History Aspirin EC [Ecotrin Low Dose] 81 mg PO DAILY 08/09/20 06/11/22 History Atorvastatin [Lipitor] 80 mg PO HS 08/09/20 06/11/22 History Furosemide [Lasix] 20 mg PO DAILY PRN 08/09/20 06/11/22 History Sacubitril/Valsartan [Entresto 24 1 tab PO BID 08/09/20 06/11/22 History mg-26 mg Tablet] Spironolactone [Aldactone] 25 mg PO DAILY 08/09/20 06/11/22 History carvediloL [Coreg] 6.25 mg PO BID 08/09/20 06/11/22 History clonazePAM [KlonoPIN] 0.5 mg PO BID PRN 08/09/20 06/11/22 History Empagliflozin [Jardiance] 10 mg PO DAILY 06/11/22 06/11/22 History Nitroglycerin Sl Tabs [Nitrostat] 0.4 mg SUBLINGUAL Q5M PRN 06/11/22 06/11/22 History Allergies Allergy/AdvReac Type Severity Reaction Status Date / Time ciprofloxacin [From Cipro] Allergy Unknown Verified 06/11/22 19:04 hydrocodone [From [place]] Allergy Rash/Hives Verified 06/11/22 19:04 Iodinated Contrast Media AdvReac "PASSED Verified 06/11/22 19:04 [Iodinated Contrast Media - OUT FOR 3 Oral and] DAYS" Physical Exam Osteopathic Statement: *. No significant issues noted on an osteopathic structural exam other than those noted in the History and Physical/Consult. Vitals: Vital Signs Temp Pulse Pulse Pulse Resp BP BP 06/13/22 15:00 98.1 F 58 L 16 96/57 06/13/22 12:26 89/55 82/56 06/13/22 08:00 57 L 06/13/22 07:00 97.7 F 58 L 16 84/50 06/13/22 06:08 51 L 89/60 74/43 06/13/22 02:24 98.2 F 58 L 18 85/51 06/12/22 23:05 59 L 16 96/61 06/12/22 20:00 16 06/12/22 19:35 97.2 F L 56 L 18 85/48 Pulse Ox 06/13/22 15:00 96 06/13/22 12:26 06/13/22 08:00 06/13/22 07:00 97 06/13/22 06:08 06/13/22 02:24 95 06/12/22 23:05 97 06/12/22 20:00 06/12/22 19:35 97 Intake and Output 06/13/22 06/13/22 06/13/22 06:59 14:59 22:59 Intake Total 250 118 Balance 250 118 Intake: Oral 250 118 No acute distress, oriented 3. Currently on room air. No audible wheezing, conversational dyspnea, or use of accessory muscles. HEENT examination is grossly unremarkable. Neck supple. Full range of motion. No adenopathy thyromegaly or neck vein distention. Cardiovascular examination reveals regular rhythm rate. S1-S2 normal. No S3 or S4. No discernible murmur noted. Heart rate 58 bpm. Lungs reveal coarse bilateral inspiratory and expiratory rhonchi. Scattered expiratory wheezes. No crackles. Room air saturation 96%. Breath sounds equal bilaterally. Abdomen soft bowel sounds are heard. No masses or tenderness. Extremities are intact. No cyanosis clubbing or edema. Skin is without rash or lesion. Neurologic examination is brief but nonfocal. Results - Laboratory Findings CBC and BMP: 06/12/22 05:26 06/12/22 05:26 PT/INR, D-dimer PT 12.3 sec (9.0-12.0) H 06/11/22 18:44 INR 1.2 (<1.2) H 06/11/22 18:44 D-Dimer 1.62 mg/L FEU (<0.60) H 06/13/22 14:28 Abnormal lab findings: Abnormal Labs 06/11/22 06/11/22 06/11/22 18:44 18:44 18:44 WBC 12.8 H Neutrophils # 9.2 H Monocytes # PT 12.3 H INR 1.2 H D-Dimer Potassium 3.4 L Carbon Dioxide Anion Gap BUN 44 H Creatinine 1.59 H Est GFR (CKD-EPI)NonAf BUN/Creatinine Ratio Glucose 109 H Plasma Lactic Acid Tiago Magnesium 2.5 H Coronavirus (PCR) 06/11/22 06/12/22 06/12/22 18:44 05:26 05:26 WBC 10.73 H Neutrophils # Monocytes # 1.21 H PT INR D-Dimer Potassium Carbon Dioxide 29.1 H Anion Gap 8.80 L BUN 39.1 H Creatinine Est GFR (CKD-EPI)NonAf 52.3 L BUN/Creatinine Ratio 26.78 H Glucose Plasma Lactic Acid Tiago Magnesium Coronavirus (PCR) Detected A 06/13/22 06/13/22 14:28 14:28 WBC Neutrophils # Monocytes # PT INR D-Dimer 1.62 H Potassium Carbon Dioxide Anion Gap BUN Creatinine Est GFR (CKD-EPI)NonAf BUN/Creatinine Ratio Glucose Plasma Lactic Acid Tiago 2.1 H* Magnesium Coronavirus (PCR) - Diagnostic Findings Chest x-ray: image reviewed Assessment and Plan Assessment: Acute exacerbation of COPD, coronavirus infection, but not coronavirus associated pneumonia. Ongoing tobacco use and nicotine addiction. History of hypertension. Prior history of myocardial infarction. History of hyperlipidemia. Prior history of heart catheterization with stent placement. History of gastroesophageal reflux disease. Plan: Plan dated 06/13/2021. Currently, the patient is on Solu-Medrol, 60 mg every 8 hours. The patient's also receiving albuterol, and I will add some Symbicort. Additional recommend ations and suggestions are forthcoming. We will continue to follow the patient make recommendations were appropriate. The patient does need follow-up as an outpatient, for complete pulmonary function testing. He's also counseled about the importance of smoking cessation. Time with Patient: Greater than 30
[2022-06-13] MEDS: methylPREDNISolone SOD SUCCI 125 MG/2 ML VIAL IV SCH ×2 (16:59→22:00)
[2022-06-13] MEDS: carvediloL 3.125 MG TAB PO SCH (18:12)
[2022-06-13] MEDS ORDERED: POTASSIUM CHLORIDE ER 20 MEQ TAB.ER PO STA (19:14)
[2022-06-13] MEDS ORDERED: POTASSIUM CHLORIDE ER 20 MEQ TAB.ER PO SCH (20:00)
[2022-06-13] MEDS: SYMBICORT 160-4.5 MCG INHALER INHALATION SCH (20:14)
[2022-06-13] MEDS: ATORVASTATIN 80 MG TAB PO SCH (21:58)
[2022-06-14] MEDS: SODIUM CHLORIDE 0.9% 1,000 ML IV SCH (04:22)
[2022-06-14 04:29] LABS: Appearance,Urine Clear (Clear); Bilirubin,Urine Negative (Negative); Blood,Urine Negative (Negative); Color,Urine Yellow; Glucose,Urine (UA) 4+ (Negative); Ketones,Urine Negative (Negative); Leukocyte Esterase,Urine Negative (Negative); Nitrite,Urine Negative (Negative); PH, Urine 6.5 (5.0-8.0); Protein,Urine Trace (Negative)
[2022-06-14] MEDS: carvediloL 3.125 MG TAB PO SCH (05:26)
[2022-06-14] MEDS: ALBUTEROL HFA INHALER INHALATION PRN (08:25)
[2022-06-14] MEDS: SYMBICORT 160-4.5 MCG INHALER INHALATION SCH (08:25)
[2022-06-14 08:42] LABS: Basophils # (A) 0.08 X 10*3/uL (0.00-0.10); Eosinophils # (A) 0.14 X 10*3/uL (0.04-0.35); Eosinophils % (A) 1.8 %; HCT 38.7 % (39.6-50.0); HGB 13.7 g/dL (13.0-17.0); Immature Grans, Automated 0.1 %; Lymphocytes # (A) 3.28 X 10*3/uL (0.90-5.00); Lymphocytes % (A) 41.5 %; MCH 32.2 pg (27.0-32.0); MCHC 35.4 g/dL (32.0-37.0); MCV 91.1 fL (80.0-97.0); Mean Platelet Volume 11.7 fL (9.5-12.2); Monocytes # (A) 0.81 X 10*3/uL (0.20-1.00); Monocytes % (A) 10.3 %; NRBC Per 100 WBC 0 /100 WBCS (0.0-0.0); Neutrophils # (A) 3.58 X 10*3/uL (1.80-7.70); Neutrophils % (A) 45.3 %; Platelet Count 203 X 10*3/uL (140-440); RBC 4.25 X 10*6/uL (4.40-5.60); RDW 13.6 % (11.5-14.5)
[2022-06-14 08:53] LABS: African American GFR (CKD) 108.7 (60.0-200.0); Albumin 3.2 g/dL (3.8-4.9); Albumin/Globulin Ratio 1.28 (1.60-3.17); Anion Gap 4.8 mmol/L (10.00-18.00); Blood Urea Nitrogen 22.5 mg/dL (9.0-27.0); Calcium 8.7 mg/dL (8.7-10.3); Carbon Dioxide 23.2 mmol/L (20.0-27.5); Globulin 2.5 g/dL (1.6-3.3); Magnesium 2.2 mg/dL (1.5-2.4); Non-African American GFR(CKD) 93.8 (60.0-200.0); Total Bilirubin 0.6 mg/dL (0.30-1.20); Total Protein 5.7 g/dL (6.2-8.2)
[2022-06-14] MEDS ORDERED: SACUBITRIL/VALSARTAN 24 MG-26 MG TABLET PO SCH (09:00)
[2022-06-14 09:12] VITALS: PULSE 60; RESP 16; TEMP 98.1
[2022-06-14] MEDS: methylPREDNISolone SOD SUCCI 125 MG/2 ML VIAL IV SCH (09:29)
[2022-06-14] MEDS: HEPARIN SODIUM,PORCINE/PF 5,000 UNIT/0.5 ML SYRINGE SQ SCH (09:29)
[2022-06-14] MEDS: ASPIRIN 81 MG PO SCH (09:30)
[2022-06-14] MEDS: ZINC SULFATE 220 MG CAP PO SCH (09:30)
[2022-06-14] MEDS: ASCORBIC ACID 500 MG TAB PO SCH (09:30)
[2022-06-14] MEDS: PREGABALIN 75 MG CAP PO SCH (09:30)
[2022-06-14] MEDS: CHOLECALCIFEROL 125 MCG (5000 IU) TABLET PO SCH (09:30)
[2022-06-14 09:39] VITALS: BP 114/67
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
--- NOTE | 2022-06-14 14:54 | P.PN ---
Subjective Progress Note Date: 06/14/22 56-year-old male with a history of daily alcohol use, ongoing tobacco use, coronary disease, previous cardiac arrest, and hypertension, who is followed at the [facility], complains of increasing shortness of breath, chest congestion, cough, and thick green phlegm production. The patient sees some soda provider at the [facility]. The patient has not seen our group in the past. The patient is a heavy smoker, having smoked for 40 years, 1-2 packs a day. The patient apparently did test positive for coronavirus in the emergency room. Unfortunately, the patient is on vaccinated. Currently, he is on room air. He's also getting saline at 75 mL an hour. White count 10.7, hemoglobin 15.4, hematocrit 44.6, and platelet count is normal. D-dimer was 1.62. Sodium 142, potassium 3.8, chlorides 104, CO2 29, anion gap 9, BUN 39, and creatinine 1.5. Troponins were negative 3. N-terminal proBNP was 527. He tested negative for influenza A and B. Chest x- ray showed no abnormalities. On 06/14/2022, the patient is feeling better. The patient is currently on room air oxygen. The patient was never vaccinated for Covid 19. This is first infection with Covid 19. His chest x-ray was clear. CAT scan of the chest that was done without contrast showed no acute abnormalities. Currently on room air oxygen. The patient will be taken off the IV Solu-Medrol and started on a prednisone taper. He is on Symbicort as maintenance and laboratory ejection as- needed basis, when necessary. He also has severe cardiomyopathy with an ejection fraction of 15%. He seems to be well compensated at this point in time. He is on Entresto and coag regarding his cardiac myopathy. Objective - Vital Signs Vital signs: Vital Signs Temp 98.1 F 06/14/22 07:00 Pulse 60 06/14/22 07:00 Resp 16 06/14/22 07:00 BP 114/67 06/14/22 09:15 Pulse Ox 98 06/14/22 08:27 FiO2 Intake & Output 06/13/22 06/14/22 06/14/22 18:59 06:59 18:59 Intake Total 458 118 Balance 458 118 Intake: Oral 458 118 Other: Voiding Method Urinal # Voids 2 3 - Exam No acute distress, oriented 3. Currently on room air. No audible wheezing, conversational dyspnea, or use of accessory muscles. HEENT examination is grossly unremarkable. Neck supple. Full range of motion. No adenopathy thyromegaly or neck vein distention. Cardiovascular examination reveals regular rhythm rate. S1-S2 normal. No S3 or S4. No discernible murmur noted. Lungs reveal coarse bilateral inspiratory and expiratory rhonchi. Scattered expiratory wheezes. No crackles. Room air saturation 96%. Breath sounds equal bilaterally. Abdomen soft bowel sounds are heard. No masses or tenderness. Extremities are intact. No cyanosis clubbing or edema. Skin is without rash or lesion. Neurologic examination is brief but nonfocal. - Labs CBC & Chem 7: 06/14/22 05:32 06/14/22 05:32 Labs: Abnormal Lab Results - Last 24 Hours (Table) 06/13/22 06/13/22 06/14/22 Range/Units 14:28 14:28 01:15 RBC (4.40-5.60) X 10*6/uL Hct (39.6-50.0) % MCH (27.0-32.0) pg D-Dimer 1.62 H (<0.60) mg/L FEU Anion Gap (10.00-18.00) mmol/L BUN/Creatinine Ratio (12.00-20.00) Ratio Plasma Lactic Acid Tiago 2.1 H* (0.7-2.0) mmol/L AST (14-35) U/L ALT (10-49) U/L Total Protein (6.2-8.2) g/dL Albumin (3.8-4.9) g/dL Albumin/Globulin Ratio (1.60-3.17) g/dL Urine Protein Trace H (Negative) Urine Glucose (UA) 4+ H (Negative) 06/14/22 06/14/22 Range/Units 05:32 05:32 RBC 4.25 L (4.40-5.60) X 10*6/uL Hct 38.7 L (39.6-50.0) % MCH 32.2 H (27.0-32.0) pg D-Dimer (<0.60) mg/L FEU Anion Gap 4.80 L (10.00-18.00) mmol/L BUN/Creatinine Ratio 25.00 H (12.00-20.00) Ratio Plasma Lactic Acid Tiago (0.7-2.0) mmol/L AST 10 L (14-35) U/L ALT 5 L (10-49) U/L Total Protein 5.7 L (6.2-8.2) g/dL Albumin 3.2 L (3.8-4.9) g/dL Albumin/Globulin Ratio 1.28 L (1.60-3.17) g/dL Urine Protein (Negative) Urine Glucose (UA) (Negative) Assessment and Plan Plan: Acute exacerbation of COPD, coronavirus infection, but not coronavirus associated pneumonia. Systolic heart failure, EF 15%, while maintained on cardiac medication the patient's CHF is well compensated this point in time Ongoing tobacco use and nicotine addiction. History of hypertension. Prior history of myocardial infarction. History of hyperlipidemia. Prior history of heart catheterization with stent placement. History of gastroesophageal reflux disease. Plan: Patient is currently on room air oxygen CAT scan of the chest was essentially clear CHF as well compensated Trazodone this patient to oral Decadron 6 mg for the next 10 days May possibly get discharged if cleared by the medical team
--- NOTE | 2022-06-14 15:19 | P.DS ---
Providers Date of admission: 06/11/22 20:46 Expected date of discharge: 06/14/22 Attending physician: Sulaiman Nicolas MD Consults: 06/13/22 14:11 Consult Physician Routine Consulting Provider: Marcelo Jones Consult Reason/Comments: evaluate for remdesivir Do you want consulting provider notified?: Yes Primary care physician: Stated None Hospital Course: Admitting diagnoses: Shortness of breath Discharge diagnoses: Acute exacerbation of COPD due to Covid Chest pain resolved Shortness of breath resolved AK I CK D improved CHF stable Hypertension controlled Medical course: The patient is a 48-year-old male with a PMH of EtOH abuse, COPD, tobacco abuse, CAD status post multiple MIs, systolic CHF with EF 20%, chronic kidney disease, hypertension who presents to the emergency room with complaints of chest pain. The patient reports that his pain started earlier today suddenly, left-sided, pressure-like and sharp-like, with pleuritic components, 9 out of 10 at maximal intensity, nonradiating, with associated shortness of breath. States that his pain resolved shortly after arrival at the emergency room. Reports that his pain is different from his prior MIs . He also reports a cough productive of yellow- green phlegm, somewhat unchanged from his baseline. States that his sister also had similar symptoms of cough. Chest x-ray in the emergency room was unremarkable. EKG revealed sinus bradycardia with PVCs at 56 bpm with left bundle branch block as reviewed by me. Laboratory evaluation was remarkable for leukocytosis of 12.8, troponin less than 0.012, creatinine 1.59 (previously 1.3), currently worse PCR positive. General: [non toxic], [no distress], [appears at stated age] Derm: [warm], [dry] Head: [atraumatic], [normocephalic], [symmetric] Eyes: [EOMI], [no lid lag], [anicteric sclera] Mouth: [no lip lesion], [mucus membranes moist] Cardiovascular: [S1S2 reg], [no murmur], [positive posterior tibial pulse bilateral], Lungs: [CTA bilateral], [no rhonchi, no rales] , [no accessory muscle use] Abdominal: [soft], [ nontender to palpation], [no guarding], [no appreciable organomegaly] Ext: [no gross muscle atrophy], [no edema], [no contractures] Neuro: [ CN II-XI grossly intact], [no focal neuro deficits] Psych: [Alert], [oriented], [appropriate affect] 1. Shortness of breath with hypotension multifactorial Likely due to COVID with underlying COPD and chronic systolic heart failure CT chest without contrast ordered (contrast avoided due to CHANO on CKD)negative CXR negative Solu-Medrol ordered transition transitioned to orals on discharge Vitamins C, D, and zinc ordered Pulmonary followed Parameters placed on antihypertensives Slow IV hydration provided 2. Chest pain likely due to #1 Per cardiology patient warrants an outpatient stress test Cardiology followed 3. CHANO on CKD improved Creatinine today 0.9 4. Chronic conditions: Hypertension and CHF coreg decreased to 3.125 BID from 6.25 BID with parameters placed due to hypotension medication has not been given since last night DVT prophylaxis -Heparin subcu Disposition: Home with home care Activity as tolerated Diet: Cardiac Condition: Fair Follow-up with PCP in 1-2 days Follow-up with cardiology in 1-2 weeks Follow-up with pulmonology in 1-2 weeks Patient Condition at Discharge: Fair Plan - Discharge Summary Discharge Rx Participant: Yes New Discharge Prescriptions: New dexAMETHasone ORAL [Hexadrol] 6 mg PO DAILY #10 tab Zinc Sulfate [Orazinc] 220 mg PO DAILY #30 cap Budesonide-Formot 160-4.5 Mcg [Symbicort 160-4.5 Mcg Inhaler] 2 puff INHALATION RT-BID #1 each Albuterol Inhaler [Ventolin Hfa Inhaler] 2 puff INHALATION RT-QID PRN #1 each PRN Reason: Shortness Of Breath Or Wheezing Ascorbic Acid [Vitamin C] 500 mg PO DAILY #30 tab Cholecalciferol [Vitamin D3 (125 Mcg = 5000 Iu)] 125 mcg PO DAILY #30 tab Continue Pregabalin [Lyrica] 150 mg PO TID clonazePAM [KlonoPIN] 0.5 mg PO BID PRN PRN Reason: Anxiety Spironolactone [Aldactone] 25 mg PO DAILY Sacubitril/Valsartan [Entresto 24 mg-26 mg Tablet] 1 tab PO BID Atorvastatin [Lipitor] 80 mg PO HS Aspirin EC [Ecotrin Low Dose] 81 mg PO DAILY carvediloL [Coreg] 6.25 mg PO BID Empagliflozin [Jardiance] 10 mg PO DAILY Nitroglycerin Sl Tabs [Nitrostat] 0.4 mg SUBLINGUAL Q5M PRN PRN Reason: Chest Pain Discontinued Furosemide [Lasix] 20 mg PO DAILY PRN PRN Reason: Edema Discharge Medication List Pregabalin [Lyrica] 150 mg PO TID 02/04/19 [History] Aspirin EC [Ecotrin Low Dose] 81 mg PO DAILY 08/09/20 [History] Atorvastatin [Lipitor] 80 mg PO HS 08/09/20 [History] Sacubitril/Valsartan [Entresto 24 mg-26 mg Tablet] 1 tab PO BID 08/09/20 [History] Spironolactone [Aldactone] 25 mg PO DAILY 08/09/20 [History] carvediloL [Coreg] 6.25 mg PO BID 08/09/20 [History] clonazePAM [KlonoPIN] 0.5 mg PO BID PRN 08/09/20 [History] Empagliflozin [Jardiance] 10 mg PO DAILY 06/11/22 [History] Nitroglycerin Sl Tabs [Nitrostat] 0.4 mg SUBLINGUAL Q5M PRN 06/11/22 [History] Albuterol Inhaler [Ventolin Hfa Inhaler] 2 puff INHALATION RT-QID PRN #1 each 06/14/22 [Rx] Ascorbic Acid [Vitamin C] 500 mg PO DAILY #30 tab 06/14/22 [Rx] Budesonide-Formot 160-4.5 Mcg [Symbicort 160-4.5 Mcg Inhaler] 2 puff INHALATION RT-BID #1 each 06/14/22 [Rx] Cholecalciferol [Vitamin D3 (125 Mcg = 5000 Iu)] 125 mcg PO DAILY #30 tab 06/14/22 [Rx] Zinc Sulfate [Orazinc] 220 mg PO DAILY #30 cap 06/14/22 [Rx] dexAMETHasone ORAL [Hexadrol] 6 mg PO DAILY #10 tab 06/14/22 [Rx] Follow up Appointment(s)/Referral(s): Talib Mcmullen DO [STAFF PHYSICIAN] - 06/21/22 10:30 am None,Stated [Primary Care Provider] - 1-2 days Holly Hartley MD [STAFF PHYSICIAN] - 2 Weeks Patient Instructions/Handouts: Chest Pain (DC) Discharge Disposition: HOME WITH HOME HEALTH SERVICES
[2022-06-15] MEDS ORDERED: predniSONE 20 MG TAB PO SCH (09:00)
[2022-06-15] MEDS ORDERED: dexAMETHasone 2 MG TAB PO SCH (09:00)
== END 2022-06-14 16:05 | disposition home health service (06) | DRG 178 ==
LOC: EC 18:33 → OBSVTOIN 20:46 → 6NMEDSUR 20:46
PROVIDERS: ADMIT Internal Medicine; ATTEND Internal Medicine
DX: U07.1 COVID-19 (principal); I13.0 Hypertensive heart and chronic kidney disease with heart failure and stage 1 through stage 4 chronic kidney disease, or unspecified chronic kidney disease; I50.22 Chronic systolic (congestive) heart failure; J44.1 Chronic obstructive pulmonary disease with (acute) exacerbation; N17.9 Acute kidney failure, unspecified; I25.10 Atherosclerotic heart disease of native coronary artery without angina pectoris; E78.5 Hyperlipidemia, unspecified; F17.210 Nicotine dependence, cigarettes, uncomplicated; N18.9 Chronic kidney disease, unspecified; Z71.6 Tobacco abuse counseling; F41.9 Anxiety disorder, unspecified; I25.2 Old myocardial infarction; I25.5 Ischemic cardiomyopathy; I95.9 Hypotension, unspecified; I44.7 Left bundle-branch block, unspecified; E11.22 Type 2 diabetes mellitus with diabetic chronic kidney disease; R07.89 Other chest pain; K21.9 Gastro-esophageal reflux disease without esophagitis; R53.82 Chronic fatigue, unspecified; M54.10 Radiculopathy, site unspecified; M41.80 Other forms of scoliosis, site unspecified; I08.1 Rheumatic disorders of both mitral and tricuspid valves; Z79.82 Long term (current) use of aspirin; Z79.84 Long term (current) use of oral hypoglycemic drugs; E11.42 Type 2 diabetes mellitus with diabetic polyneuropathy; Z79.899 Other long term (current) drug therapy; Z98.61 Coronary angioplasty status; Z88.1 Allergy status to other antibiotic agents; Z88.5 Allergy status to narcotic agent; Z91.041 Radiographic dye allergy status; Z86.74 Personal history of sudden cardiac arrest; Z87.01 Personal history of pneumonia (recurrent)
CPT/HCPCS: 36415; 71046; 71250; 80048; 80053; 81003; 83605; 83690; 83735; 83880; 84145; 84484; 85025; 85379; 85610; 85730; 87040; 87502; 87635; 93005; 93306; 94640; 94760; 99285